=== PATIENT | female | born 1930 | race African-American/Black ===

== ENCOUNTER 2017-05-31 12:38 | Inpatient (IN) | payer MEDICARE, MEDICAID ==
[2017-05-31] VITALS (23 sets, daily range): BP systolic 76–116; BP diastolic 41–62
[~2017-05-31] VITALS: Ht 152.4 cm; Wt 74.8 kg
[2017-05-31] MEDS ORDERED: TORSEMIDE20 MG ORAL (12:44)
[2017-05-31] MEDS ORDERED: SOTALOL80 M1 ORAL (12:44)
[2017-05-31] MEDS ORDERED: VERAPAMIL ER240 MG ORAL (12:44)
[2017-05-31] MEDS ORDERED: COUMADIN5 MG ORAL (12:54)
[2017-05-31] MEDS ORDERED: SPIRONOLACTONE ORAL (12:54)
[2017-05-31] MEDS ORDERED: TYLENOL EXTRA500 MG ORAL (12:54)
[2017-05-31] MEDS ORDERED: POTASSIUM CHLO10 MEQ ORAL (12:54)
[2017-05-31] MEDS ORDERED: ATORVASTATIN CA40 MG ORAL (12:54)
--- NOTE | 2017-05-31 12:55 | Emergency Room Report ---
History of Present Illness General Chief Complaint: Gastrointestinal Bleed Source: Patient, Medical Record, EMS Present Illness HPI 86-year-old female history of hypertension, pacemaker ? Atrial fibrillation, on Coumadin, also takes aspirin, presenting with one day of GI bleed Patient reports bright red blood per rectum, multiple episodes this morning, feeling very faint but no actual syncopal episode. Patient states that this has never occurred in the past. Her last colonoscopy was 4 years ago and she was told it was normal. Denies any fever chills chest pain shortness of breath nausea vomiting or abdominal pain EMS states that on arrival the patient's systolic was 100. Received 400 mL of fluid. EMS also noted that in route patient became bradycardic at 35, was always alert and oriented, received oxygen which improved heart rate. Patient was never hypoxic Allergies: Coded Allergies: No Known Allergies (Unverified , 05/31/17) Patient History Past Medical History: see triage record Past Surgical History: none Pertinent Family History: none Reviewed Nursing Documentation: PMH: Agreed, PSxH: Agreed Nursing Documentation-PMH Past Medical History: No History, Except For Hx Pacemaker: Yes Review of Systems All Other Systems: negative except mentioned in HPI Physical Exam Vital Signs Date Time Temp Pulse Resp B/P (MAP) Pulse Ox O2 Delivery O2 Flow Rate FiO2 05/31/17 12:31 95.5 81 14 102/59 92 Room Air Sp02 EP Interpretation: reviewed, normal General Appearance: alert, GCS 15, non-toxic, other - Elderly female, appears fatigued, however awake alert and conversing appropriately Head: normocephalic, atraumatic Eyes: bilateral eye normal inspection, bilateral eye PERRL, bilateral eye EOMI ENT: normal ENT inspection, normal pharynx, normal voice, moist mucus membranes Neck: normal inspection, full range of motion, supple Respiratory: normal inspection, lungs clear, normal breath sounds, no respiratory distress, no retraction, no wheezing, speaking full sentences, chest symmetrical Cardiovascular #1: normal inspection, regular rate, rhythm, no edema, normal capillary refill Cardiovascular #2: 2+ radial (R), 2+ radial (L) Gastrointestinal: normal inspection, non tender, soft, non-distended, no guarding Rectal: other - BRBPR in rectal vault however no active bleeding Musculoskeletal: normal inspection, back normal, normal range of motion, non- tender Neurologic: normal inspection, alert, oriented x3, responsive, motor strength/ tone normal, sensory intact, speech normal Psychiatric: normal inspection, judgement/insight normal, memory normal Skin: no rash, warm/dry, well hydrated, normal turgor, other - Conjunctival pallor Procedures Critical Care Time Critical Care Time 40 minutes of CC time 86-year-old female with GI bleed, on Coumadin VS: Hypotensive Airway patent. Not hypoxic. PLAN: IV access, labs, coags, transfuse blood Anticipate admission to ICU CC time also includes review of labs, review of EMR, discussion with family , d/ w hospitalist and consultants CC could include dosing of pressors, additional Abx CC time does not include procedures Medical Decision Making Diagnostic Impression: Primary Impression: Gastrointestinal hemorrhage Additional Impressions: Anemia Supratherapeutic INR ER Course 86-year-old female on Coumadin presenting with bright red blood per rectum Currently patient is hemodynamically stable DDX: Lower GI bleed Hemorrhoids versus diverticulosis versus AV malformation versus mass versus diverticulitis Plan: Obtain labs, ua, EKG, CXR, type and screen, assess for transfusion/FFP ER course: Patient has remained awake and alert during ED stay Not in pain No rose bloody stools BP noted to be around 85-100 systolic with MAPs around 55-60. Currently 95/50. Hgb noted to be ~9, unknown baseline. patient with minimal active bleeding in ED however symptomatic/dizzy feeling faint, will xfuse 2 units here in the ED Risks and benefits of blood xfusion d/w patient and daughter, they agree to xfusion supratherapeutic INR at 6 Vit K and FFP given After 1 unit pRBC patients BP 80/60 to 108/58 2nd unit started in ED Disposition: Patient is to be admitted to ICU D/W hospitalist Dr Coronado who has accepted pt for admission Dr Irizarry from GI consulted and is aware of case Please note that this Emergency Department Report was dictated using [employer] operator technology software, occasionally this can lead to erroneous entry secondary to interpretation by the dictation equipment. Chest X-ray CXR: Ordered: Yes 1 view Indication: Shortness of breath EP interpretation: Yes Interpretation: No consolidation, no effusion, no PTX, no acute cardiopulmonary disease, pacemaker noted in left chest Impression: No acute disease Electronically signed by Rochelle Acevedo MD Laboratory Tests Test 05/31/17 12:45 White Blood Count 6.5 K/UL (4.8-10.8) Red Blood Count 2.92 M/UL (4.20-5.40) L Hemoglobin 9.6 G/DL (12.0-16.0) L Hematocrit 29.3 % (37.0-47.0) L Mean Corpuscular Volume 100 FL (80-99) H Mean Corpuscular Hemoglobin 32.7 PG (27.0-31.0) H Mean Corpuscular Hemoglobin Concent 32.6 G/DL (32.0-36.0) Red Cell Distribution Width 13.6 % (11.6-14.8) Platelet Count 130 K/UL (150-450) L Mean Platelet Volume 10.1 FL (6.5-10.1) Neutrophils (%) (Auto) 76.2 % (45.0-75.0) H Lymphocytes (%) (Auto) 18.4 % (20.0-45.0) L Monocytes (%) (Auto) 3.6 % (1.0-10.0) Eosinophils (%) (Auto) 1.1 % (0.0-3.0) Basophils (%) (Auto) 0.8 % (0.0-2.0) Prothrombin Time 64.0 SEC (9.30-11.50) H Prothrombin Time INR 6.0 (0.9-1.1) *H PTT 39 SEC (23-33) H Sodium Level 137 MMOL/L (136-145) Potassium Level 4.2 MMOL/L (3.5-5.1) Chloride Level 105 MMOL/L (98-107) Carbon Dioxide Level 24 MMOL/L (21-32) Anion Gap 8 (5-15) Blood Urea Nitrogen 61 mg/dL (7-18) H Creatinine 2.3 MG/DL (0.55-1.30) H Estimate Glomerular Filtration Rate mL/min (>60) Glucose Level 160 MG/DL (74-106) H Calcium Level 8.4 MG/DL (8.5-10.1) L Total Bilirubin 0.5 MG/DL (0.2-1.0) Aspartate Amino Transferase (AST) 18 U/L (15-37) Alanine Aminotransferase (ALT) 18 U/L (12-78) Alkaline Phosphatase 78 U/L (46-116) Creatine Kinase MB 0.9 NG/ML (0.0-3.6) Troponin I Pending Total Protein 5.6 G/DL (6.4-8.2) L Albumin 2.7 G/DL (3.4-5.0) L Globulin 2.9 g/dL Albumin/Globulin Ratio 0.9 (1.0-2.7) L Lipase 612 U/L (73-393) H EKG Diagnostic Results Rhythm: NSR ST Segments: no acute changes ASA given to the pt in ED: No Rhythm Strip Diag. Results EP Interpretation: yes Rate: 63 Rhythm: NSR, no PVC's, no ectopy Last Vital Signs Date Time Temp Pulse Resp B/P (MAP) Pulse Ox O2 Delivery O2 Flow Rate FiO2 05/31/17 12:31 95.5 81 14 102/59 92 Room Air Disposition: ADMITTED INPATIENT Condition: Serious RetinoRochelle M.D. May 31, 2017 12:55
[2017-05-31] MEDS ORDERED: ENALAPRIL MALEA20 MG ORAL (13:18)
[2017-05-31 13:19] LABS: BASOPHILS % (AUTO) 0.8 % (0.0-2.0); EOSINOPHILS % (AUTO) 1.1 % (0.0-3.0); LYMPHOCYTES % (AUTO) 18.4 % (20.0-45.0); MEAN CORPUSCULAR HEMOGLOBIN 32.7 PG (27.0-31.0); MEAN CORPUSCULAR HGB CONC 32.6 G/DL (32.0-36.0); MEAN CORPUSCULAR VOLUME 100 FL (80-99); MEAN PLATELET VOLUME 10.1 FL (6.5-10.1); MONOCYTES % (AUTO) 3.6 % (1.0-10.0); NEUTROPHILS % (AUTO) 76.2 % (45.0-75.0); PLATELET COUNT 130 K/UL (150-450); RED BLOOD COUNT 2.92 M/UL (4.20-5.40); RED CELL DISTRIBUTION WIDTH 13.6 % (11.6-14.8); WHITE BLOOD COUNT 6.5 K/UL (4.8-10.8)
[2017-05-31 13:39] LABS: ALANINE AMINOTRANSFERASE 18 U/L (12-78); ALBUMIN/GLOBULIN RATIO 0.9 (1.0-2.7); ANION GAP 8 (5-15); ASPARTATE AMINO TRANSFERASE 18 U/L (15-37); CALCIUM 8.4 MG/DL (8.5-10.1); CARBON DIOXIDE 24 MMOL/L (21-32); CHLORIDE 105 MMOL/L (98-107); CKMB 0.9 NG/ML (0.0-3.6); CREATININE 2.3 MG/DL (0.55-1.30); LIPASE 612 U/L (73-393); POTASSIUM 4.2 MMOL/L (3.5-5.1); SODIUM 137 MMOL/L (136-145); TOTAL PROTEIN 5.6 G/DL (6.4-8.2)
[2017-05-31] MEDS ORDERED: Phytonadione 10 mg/mL 1ml amp ONE (13:51)
[2017-05-31] MEDS ORDERED: Vitamin K 10mg in D5W 55ml IVPB ONE (14:00)
--- NOTE | 2017-05-31 16:12 | Consultation ---
Consult Note Consult Note asked to eval for renal failure- 86-year-old female history of hypertension, pacemaker ? Atrial fibrillation, on Coumadin, also takes aspirin, presenting with one day of GI bleed Patient reports bright red blood per rectum, multiple episodes this morning, feeling very faint but no actual syncopal episode. Patient states that this has never occurred in the past. Her last colonoscopy was 4 years ago and she was told it was normal. Denies any fever chills chest pain shortness of breath nausea vomiting or abdominal pain EMS states that on arrival the patient's systolic was 100. Received 400 mL of fluid. EMS also noted that in route patient became bradycardic at 35, was always alert and oriented, received oxygen which improved heart rate. 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 Pre renal ( GI Bleed) on top of Renal GI Bleed- Anemia CHF high Lipase Plan: [facility]- GI eval Transfusion- Echo [facility] kidney ALOK VILLALTA May 31, 2017 16:12
--- NOTE | 2017-05-31 16:26 | Diagnostic Imaging Report ---
Indication: Chest pain Technique: One view of the chest Comparison: none Findings: There is a left chest bifocal pacemaker. The lungs and pleural spaces are clear. Inspiration is suboptimal, however. There is a retrocardiac hiatal hernia. There are degenerative changes of both shoulders Impression: No acute process Hiatal hernia Pacemaker
--- NOTE | 2017-05-31 16:47 | GI Initial Consult Note ---
Yousif,Juliana Wuoi N.P. 05/31/17 1647: History of Present Illness General Date patient seen: May 31, 2017 Time patient seen: 16:38 Reason for Hospitalization: Gastrointestinal Bleed Referring physician: PRIYA CARTY Present Illness HPI 86-year-old female history of hypertension, pacemaker ? Atrial fibrillation, on Coumadin, also takes aspirin, presenting with one day of GI bleed Patient reports bright red blood per rectum, multiple episodes this morning, feeling very faint but no actual syncopal episode. Patient states that this has never occurred in the past. Her last colonoscopy was 4 years ago and she was told it was normal. Denies any fever chills chest pain shortness of breath nausea vomiting or abdominal pain EMS states that on arrival the patient's systolic was 100. Received 400 mL of fluid. EMS also noted that in route patient became bradycardic at 35, was always alert and oriented, received oxygen which improved heart rate. Patient was never hypoxic. GI consulted for LGIB. HPI as noted above. Pt seen in ED, awake but very weak A&Ox4 NAD with no noted active rectal bleed at this time. Patient was admitted with symptomatic anemia, Hgb 9.8 s/p 2 units of blood and hypotension now stable. Notable labs with elevated troponin, elevated INR (coumadin dc'd), and elevated lipase. Patient is pending transfer to ICU. Home Meds Reported Medications Enalapril Maleate* (ENALAPRIL MALEATE*) 20 Mg Tablet, 20 MG ORAL DAILY, TAB 05/31/17 Warfarin Sod* (COUMADIN*) 5 Mg Tablet, 5 MG ORAL DAILY, TAB 05/31/17 Atorvastatin Calcium* (ATORVASTATIN CALCIUM*) 40 Mg Tablet, 40 MG ORAL BEDTIME, TAB 05/31/17 [Spironolactone] No Conflict Check, 25 MG ORAL DAILY 05/31/17 Acetaminophen* (TYLENOL EXTRA STRENGTH*) 500 Mg Tablet, 650 MG ORAL Q8H Y for Prn Headache/Temp > 101, #30 TAB 0 Refills 05/31/17 Torsemide* (DEMADEX*) 20 Mg Tablet, 60 MG ORAL DAILY, TAB 0 Refills 05/31/17 Verapamil Hcl* (CALAN SR*) 240 Mg Tablet.er, 360 MG ORAL DAILY, #30 CAP 0 Refills 05/31/17 Sotalol Hcl (SOTALOL*) 80 Mg Tablet, 80 MG ORAL BID, #30 TAB 0 Refills 05/31/17 Med list reviewed/reconciled: Yes Allergies: Coded Allergies: No Known Allergies (Unverified , 05/31/17) Patient History History Provided By: Patient, Medical Record PMH Narrative Past Medical History: see triage record Past Surgical History: none Pertinent Family History: none Reviewed Nursing Documentation: PMH: Agreed, PSxH: Agreed Nursing Documentation-PMH Past Medical History: No History, Except For Hx Pacemaker: Yes Review of Systems All Other Systems: negative except mentioned in HPI Physical Exam Vital Signs Date Time Temp Pulse Resp B/P (MAP) Pulse Ox O2 Delivery O2 Flow Rate FiO2 05/31/17 12:31 95.5 81 14 102/59 92 Room Air 05/31/17 12:40 2.0 Sp02 EP Interpretation: reviewed Labs Laboratory Tests Test 05/31/17 12:45 White Blood Count 6.5 K/UL (4.8-10.8) Red Blood Count 2.92 M/UL (4.20-5.40) L Hemoglobin 9.6 G/DL (12.0-16.0) L Hematocrit 29.3 % (37.0-47.0) L Mean Corpuscular Volume 100 FL (80-99) H Mean Corpuscular Hemoglobin 32.7 PG (27.0-31.0) H Mean Corpuscular Hemoglobin Concent 32.6 G/DL (32.0-36.0) Red Cell Distribution Width 13.6 % (11.6-14.8) Platelet Count 130 K/UL (150-450) L Mean Platelet Volume 10.1 FL (6.5-10.1) Neutrophils (%) (Auto) 76.2 % (45.0-75.0) H Lymphocytes (%) (Auto) 18.4 % (20.0-45.0) L Monocytes (%) (Auto) 3.6 % (1.0-10.0) Eosinophils (%) (Auto) 1.1 % (0.0-3.0) Basophils (%) (Auto) 0.8 % (0.0-2.0) Prothrombin Time 64.0 SEC (9.30-11.50) H Prothromb Time International Ratio 6.0 (0.9-1.1) *H Activated Partial Thromboplast Time 39 SEC (23-33) H Sodium Level 137 MMOL/L (136-145) Potassium Level 4.2 MMOL/L (3.5-5.1) Chloride Level 105 MMOL/L (98-107) Carbon Dioxide Level 24 MMOL/L (21-32) Anion Gap 8 (5-15) Blood Urea Nitrogen 61 mg/dL (7-18) H Creatinine 2.3 MG/DL (0.55-1.30) H Estimat Glomerular Filtration Rate mL/min (>60) Glucose Level 160 MG/DL (74-106) H Calcium Level 8.4 MG/DL (8.5-10.1) L Total Bilirubin 0.5 MG/DL (0.2-1.0) Aspartate Amino Transf (AST/SGOT) 18 U/L (15-37) Alanine Aminotransferase (ALT/SGPT) 18 U/L (12-78) Alkaline Phosphatase 78 U/L (46-116) Creatine Kinase MB 0.9 NG/ML (0.0-3.6) Troponin I 0.093 ng/mL (0.000-0.056) Total Protein 5.6 G/DL (6.4-8.2) L Albumin 2.7 G/DL (3.4-5.0) L Globulin 2.9 g/dL Albumin/Globulin Ratio 0.9 (1.0-2.7) L Lipase 612 U/L (73-393) H General Appearance: no apparent distress, thin, other - generalized weakness Head: normocephalic EENT: normal ENT inspection Neck: supple Respiratory: normal breath sounds Cardiovascular: normal rate Gastrointestinal: soft Rectal: deferred Neurologic: normal inspection, alert, oriented x3, responsive Psychiatric: normal inspection, judgement/insight normal, memory normal Skin: normal inspection, normal color, no rash, warm/dry Lymphatic: normal inspection, no adenopathy Current Medications Current Medications Medications (Trade) Dose Ordered Sig/Marck Route PRN Reason Start Time Stop Time Status Last Admin Dose Admin Sodium Chloride 1,000 ml @ 50 mls/hr Q20H IV 05/31/17 16:15 06/30/17 16:14 UNV GI: Plan Problems: (1) GI bleed (2) Anemia (3) Supratherapeutic INR (4) Gastrointestinal hemorrhage (5) Pancreatitis Plan pending transfer to ICU no noted active rectal bleed at this time elevated INR >> 6.0 elevated troponin >> 0.09 elevated lipase >> 600 + pacemaker present EGD/colonoscopy when patient is stable >> will require cardiac clearance NPO + IVFs + electrolyte replacement anemia work up monitor H&H, transfusions prn coagulopathy correction >> Vit K PPI BID repeat lipase fu labs Discussed with Dr. Langley. Thank you for this patient referral, we will follow. WAYNE LANGLEY 06/03/17 0914: History of Present Illness General Reason for Hospitalization: Gastrointestinal Bleed Present Illness Home Meds Reported Medications Enalapril Maleate* (ENALAPRIL MALEATE*) 20 Mg Tablet, 20 MG ORAL DAILY, TAB 05/31/17 Warfarin Sod* (COUMADIN*) 5 Mg Tablet, 5 MG ORAL DAILY, TAB 05/31/17 Atorvastatin Calcium* (ATORVASTATIN CALCIUM*) 40 Mg Tablet, 40 MG ORAL BEDTIME, TAB 05/31/17 [Spironolactone] No Conflict Check, 25 MG ORAL DAILY 05/31/17 Acetaminophen* (TYLENOL EXTRA STRENGTH*) 500 Mg Tablet, 650 MG ORAL Q8H Y for Prn Headache/Temp > 101, #30 TAB 0 Refills 05/31/17 Torsemide* (DEMADEX*) 20 Mg Tablet, 60 MG ORAL DAILY, TAB 0 Refills 05/31/17 Verapamil Hcl* (CALAN SR*) 240 Mg Tablet.er, 360 MG ORAL DAILY, #30 CAP 0 Refills 05/31/17 Sotalol Hcl (SOTALOL*) 80 Mg Tablet, 80 MG ORAL BID, #30 TAB 0 Refills 05/31/17 Allergies: Coded Allergies: No Known Allergies (Unverified , 05/31/17) GI: Plan Plan The patient was seen and examined at bedside and all new and available data was reviewed in the patients chart. I agree with the above findings, impression and plan. (Patient seen earlier today. Signature stamp does not reflect patient encounter time.). - MD Nica Honeycutt,[facility] N.P. May 31, 2017 16:47 WAYNE LANGLEY Jun 03, 2017 09:14
[2017-05-31] MEDS ORDERED: Levophed 4mg/4mL Inj IV ONE (18:55)
[2017-05-31] MEDS: Octreotide Acetate 500 MCG in Sodium Chloride 500ML 499 ML IV SCH (20:17)
[2017-05-31] MEDS: Pantoprazole 80 MG in NS 250 ML IV SCH (20:18)
[2017-05-31] MEDS ORDERED: Pantoprazole Inj IVP SCH (21:00)
[2017-05-31 21:35] LABS: EOSINOPHILS % (MANUAL) 1 % (0-3); LYMPHOCYTES % (MANUAL) 21 % (20-45); NEUTROPHILS % (MANUAL) 73 % (45-75); TOTAL CELLS COUNTED 100
[2017-05-31 21:36] LABS: BAND NEUTROPHILS % (MANUAL) 0 % (0-8); BASOPHILS % (MANUAL) 0 % (0-2); PLATELET ESTIMATE DECREASED
[2017-05-31 21:37] LABS: MACROCYTES 1+; PLATELET MORPHOLOGY NORMAL
[2017-05-31 21:38] LABS: PATH BLOOD SMEAR/OMC SENT TO PATHOLOGIST
[2017-06-01] VITALS (24 sets, daily range): BP systolic 88–116; BP diastolic 36–71
[2017-06-01] MEDS: Octreotide Acetate 500 MCG in Sodium Chloride 500ML 499 ML IV SCH (06:02)
[2017-06-01] MEDS: Pantoprazole 80 MG in NS 250 ML IV SCH (06:03)
[2017-06-01 06:26] LABS: MEAN CORPUSCULAR HEMOGLOBIN 33.1 PG (27.0-31.0); MEAN CORPUSCULAR HGB CONC 33.9 G/DL (32.0-36.0); MEAN CORPUSCULAR VOLUME 98 FL (80-99); MEAN PLATELET VOLUME 10.7 FL (6.5-10.1); PLATELET COUNT 106 K/UL (150-450); RED BLOOD COUNT 3.18 M/UL (4.20-5.40); WHITE BLOOD COUNT 18.3 K/UL (4.8-10.8)
--- NOTE | 2017-06-01 06:46 | Consultation ---
DATE OF CONSULTATION: 05/31/2017 CONSULTING PHYSICIAN: Kenny Castle M.D. REQUESTING PHYSICIAN: Ty Fisher M.D. REASON FOR CONSULTATION: Management of anemia and GI bleed. IDENTIFICATION DATA: Dear Dr. Ty Fisher: The patient is a pleasant 86-year-old female with a past medical history significant for hypertension, atrial fibrillation, who was on Coumadin in the past and aspirin, at this time presents with one day of GI bleed. According to the report in the morning. No syncopal episodes noted. It has never happened in the past. Last colonoscopy was approximately four years ago. Noted to be dehydrated, seen by Nephrology as well as GI team. Hematology and Oncology service was consulted for further evaluation and treatment. PAST MEDICAL HISTORY: Atrial fibrillation hypertension. PAST SURGICAL HISTORY: None noted. ALLERGIES: No known drug allergies. FAMILY HISTORY: Noncontributory. REVIEW OF SYSTEMS: CONSTITUTIONAL: No fever, chills, or night sweats. SKIN: No rashes, bumps, or itching. HEENT: No headache, hearing or vision changes. BREASTS: No lumps, pain, or discharge. PULMONARY: No cough, sputum, or shortness of breath. GASTROINTESTINAL: No nausea, vomiting, or diarrhea. GENITOURINARY: No dysuria, frequency, or urgency. MUSCULOSKELETAL: No joint swelling, muscle pain, or trauma. PHYSICAL EXAMINATION: VITAL SIGNS: Reviewed. GENERAL: No acute distress. PULMONARY: Decreased breath sounds. CARDIOVASCULAR: Regular rate. No S3 or S4. ABDOMEN: Soft, nontender, and nondistended. EXTREMITIES: There is 1+ edema. LABORATORY DATA: WBC 6.5, hemoglobin 9.6, hematocrit 29, and platelet count 130,000. INR of 1.6. BUN 61 and creatinine 2.3. ASSESSMENT AND RECOMMENDATIONS: 1. Anemia secondary to gastrointestinal bleed. Continue to closely monitor. Consider to obtain anemia workup. Hemoglobin currently 9.6 and require iron. Workup has been ordered. 2. Macrocytosis potentially secondary to liver disease. Continue to monitor. 3. Supratherapeutic INR . Coumadin currently on hold. Administer vitamin K. 4. Pancreatitis. evaluation as per Cardiology Service. 5. The patient is potentially to get an EGD and colonoscopy. I appreciate the consultation. Kenny Castle M.D. DR: BATSHEVA JOB#: [id number] CC:
[2017-06-01 07:33] LABS: IRON 54 ug/dL (50-175); TOTAL IRON BINDING CAPACITY 218 ug/dL (250-450)
[2017-06-01 07:54] LABS: ALANINE AMINOTRANSFERASE 16 U/L (12-78); ANION GAP 9 (5-15); ASPARTATE AMINO TRANSFERASE 17 U/L (15-37); CALCIUM 8.7 MG/DL (8.5-10.1); CARBON DIOXIDE 22 MMOL/L (21-32); CHLORIDE 106 MMOL/L (98-107); CHOLESTEROL 84 MG/DL (< 200); CHOLESTEROL/HDL RATIO 2.8 (3.3-4.4); CREATININE 2.6 MG/DL (0.55-1.30); CRP QUANT 3.2 mg/dL (0.00-0.90); FERRITIN 82 NG/ML (8-388); PHOSPHORUS 5.4 MG/DL (2.5-4.9); POTASSIUM 5.1 MMOL/L (3.5-5.1); SODIUM 137 MMOL/L (136-145); THYROID STIMULATING HORMONE 0.371 uiU/mL (0.360-3.740); TOTAL PROTEIN 5.7 G/DL (6.4-8.2); URIC ACID 10.2 MG/DL (2.6-7.2)
--- NOTE | 2017-06-01 08:12 | Cardiology Progress Note ---
Assessment/Plan Assessment/Plan The patient is seen and examined, full consult note will be dictated. Objective Last 24 Hour Vital Signs Date Time Temp Pulse Resp B/P (MAP) Pulse Ox O2 Delivery O2 Flow Rate FiO2 06/01/17 07:00 68 14 97/40 100 Nasal Cannula 2.0 06/01/17 06:00 67 14 109/44 100 Nasal Cannula 2.0 06/01/17 05:00 69 14 110/59 100 Nasal Cannula 2.0 06/01/17 04:00 61 06/01/17 04:00 97.4 69 14 88/39 100 Nasal Cannula 2.0 06/01/17 03:00 72 14 102/44 100 Nasal Cannula 2.0 06/01/17 02:00 68 18 100/40 100 Nasal Cannula 2.0 06/01/17 01:00 68 19 116/49 100 Nasal Cannula 2.0 06/01/17 00:00 97.6 68 16 91/46 100 Nasal Cannula 2.0 06/01/17 00:00 60 05/31/17 23:00 62 17 86/41 100 Nasal Cannula 2.0 05/31/17 22:00 61 17 94/41 100 Nasal Cannula 2.0 05/31/17 21:00 60 16 102/49 100 Nasal Cannula 2.0 05/31/17 20:30 60 14 110/52 100 Nasal Cannula 2.0 05/31/17 20:00 97.8 60 14 97/47 100 Nasal Cannula 2.0 05/31/17 19:30 95 Nasal Cannula 2.0 28 05/31/17 19:30 Nasal Cannula 2.0 28 05/31/17 19:00 62 15 116/54 100 Nasal Cannula 2.0 05/31/17 18:58 66/42 05/31/17 18:00 60 05/31/17 18:00 60 15 99/42 100 Nasal Cannula 2.0 05/31/17 17:38 97.5 61 13 107/52 100 Nasal Cannula 2.0 05/31/17 16:58 60 13 105/52 100 Nasal Cannula 2.0 05/31/17 16:10 96.8 60 15 99/51 100 Nasal Cannula 2.0 05/31/17 16:05 96.8 60 14 100/56 100 Nasal Cannula 2.0 05/31/17 16:00 96.8 60 12 103/57 100 Nasal Cannula 2.0 05/31/17 15:55 96.9 60 14 05/31/17 15:55 96.9 60 14 104/54 100 Nasal Cannula 2.0 05/31/17 15:40 96.7 60 14 99/55 100 Nasal Cannula 2.0 05/31/17 15:00 96.6 60 13 99/53 100 Nasal Cannula 2.0 05/31/17 14:55 96.5 60 13 107/56 100 Nasal Cannula 2.0 05/31/17 14:50 96.5 60 13 106/57 100 Nasal Cannula 2.0 05/31/17 14:45 96.6 60 13 05/31/17 14:45 96.6 60 13 109/58 100 Nasal Cannula 2.0 05/31/17 14:30 96.2 60 12 107/54 100 Nasal Cannula 2.0 05/31/17 14:25 95.8 60 15 95/53 100 Nasal Cannula 2.0 05/31/17 14:20 95.5 60 13 76/42 100 Nasal Cannula 2.0 05/31/17 14:15 95.5 60 16 05/31/17 14:15 95.5 60 16 84/46 100 Nasal Cannula 2.0 05/31/17 13:00 61 18 92/62 99 Nasal Cannula 2.0 05/31/17 12:40 95.7 61 15 96/54 98 Nasal Cannula 2.0 05/31/17 12:40 61 15 Nasal Cannula 2.0 05/31/17 12:31 95.5 81 14 102/59 92 Room Air Laboratory Tests Test 05/31/17 12:45 05/31/17 18:43 06/01/17 05:20 White Blood Count 6.5 K/UL (4.8-10.8) 18.3 K/UL (4.8-10.8) #H Red Blood Count 2.92 M/UL (4.20-5.40) L 3.18 M/UL (4.20-5.40) L Hemoglobin 9.6 G/DL (12.0-16.0) L 10.5 G/DL (12.0-16.0) L Hematocrit 29.3 % (37.0-47.0) L 31.1 % (37.0-47.0) L Mean Corpuscular Volume 100 FL (80-99) H 98 FL (80-99) Mean Corpuscular Hemoglobin 32.7 PG (27.0-31.0) H 33.1 PG (27.0-31.0) H Mean Corpuscular Hemoglobin Concent 32.6 G/DL (32.0-36.0) 33.9 G/DL (32.0-36.0) Red Cell Distribution Width 13.6 % (11.6-14.8) 14.0 % (11.6-14.8) Platelet Count 130 K/UL (150-450) L 106 K/UL (150-450) L Mean Platelet Volume 10.1 FL (6.5-10.1) 10.7 FL (6.5-10.1) H Neutrophils (%) (Auto) 76.2 % (45.0-75.0) H % (45.0-75.0) Lymphocytes (%) (Auto) 18.4 % (20.0-45.0) L % (20.0-45.0) Monocytes (%) (Auto) 3.6 % (1.0-10.0) % (1.0-10.0) Eosinophils (%) (Auto) 1.1 % (0.0-3.0) % (0.0-3.0) Basophils (%) (Auto) 0.8 % (0.0-2.0) % (0.0-2.0) Differential Total Cells Counted 100 Neutrophils % (Manual) 73 % (45-75) Pending Lymphocytes % (Manual) 21 % (20-45) Pending Monocytes % (Manual) 5 % (1-10) Eosinophils % (Manual) 1 % (0-3) Basophils % (Manual) 0 % (0-2) Band Neutrophils 0 % (0-8) Platelet Estimate Decreased L Pending Platelet Morphology Normal Pending Macrocytosis 1+ Prothrombin Time 64.0 SEC (9.30-11.50) H Prothromb Time International Ratio 6.0 (0.9-1.1) *H Activated Partial Thromboplast Time 39 SEC (23-33) H Sodium Level 137 MMOL/L (136-145) 137 MMOL/L (136-145) Potassium Level 4.2 MMOL/L (3.5-5.1) 5.1 MMOL/L (3.5-5.1) Chloride Level 105 MMOL/L (98-107) 106 MMOL/L (98-107) Carbon Dioxide Level 24 MMOL/L (21-32) 22 MMOL/L (21-32) Anion Gap 8 (5-15) 9 (5-15) Blood Urea Nitrogen 61 mg/dL (7-18) H 72 mg/dL (7-18) H Creatinine 2.3 MG/DL (0.55-1.30) H 2.6 MG/DL (0.55-1.30) H Estimat Glomerular Filtration Rate mL/min (>60) mL/min (>60) Glucose Level 160 MG/DL (74-106) H 129 MG/DL (74-106) H Calcium Level 8.4 MG/DL (8.5-10.1) L 8.7 MG/DL (8.5-10.1) Total Bilirubin 0.5 MG/DL (0.2-1.0) 1.4 MG/DL (0.2-1.0) H Aspartate Amino Transf (AST/SGOT) 18 U/L (15-37) 17 U/L (15-37) Alanine Aminotransferase (ALT/SGPT) 18 U/L (12-78) 16 U/L (12-78) Alkaline Phosphatase 78 U/L (46-116) 73 U/L (46-116) Creatine Kinase MB 0.9 NG/ML (0.0-3.6) Troponin I 0.093 ng/mL (0.000-0.056) Total Protein 5.6 G/DL (6.4-8.2) L 5.7 G/DL (6.4-8.2) L Albumin 2.7 G/DL (3.4-5.0) L 2.8 G/DL (3.4-5.0) L Globulin 2.9 g/dL 2.9 g/dL Albumin/Globulin Ratio 0.9 (1.0-2.7) L 1.0 (1.0-2.7) Lipase 612 U/L (73-393) H 407 U/L (73-393) H Reticulocyte Count 0.4 % (0.0-2.0) Haptoglobin Pending Fibrinogen 313 mg/dL (200-400) Soluble Transferrin Receptor Pending Methylmalonic Acid Pending Hemoglobin A1c Pending Uric Acid 10.2 MG/DL (2.6-7.2) H Phosphorus Level 5.4 MG/DL (2.5-4.9) H Magnesium Level 2.0 MG/DL (1.8-2.4) Iron Level 54 ug/dL (50-175) Total Iron Binding Capacity 218 ug/dL (250-450) L Percent Iron Saturation 25 % (15-50) Unsaturated Iron Binding 164 ug/dL (112-346) Ferritin 82 NG/ML (8-388) Direct Bilirubin Pending Gamma Glutamyl Transpeptidase Pending Total Creatine Kinase 39 U/L (26-308) C-Reactive Protein, Quantitative 3.2 mg/dL (0.00-0.90) H Pro-B-Type Natriuretic Peptide 2318 (0-125) H Triglycerides Level 76 MG/DL (0-200) Cholesterol Level 84 MG/DL (< 200) LDL Cholesterol 38 mg/dL (<100) HDL Cholesterol 30 MG/DL (40-60) L Cholesterol/HDL Ratio 2.8 (3.3-4.4) L Vitamin B12 Level 96 PG/ML (193-986) L Folate Pending Thyroid Stimulating Hormone (TSH) 0.371 uiU/mL (0.360-3.740) ELEONORA SILVA Jun 01, 2017 08:11
[2017-06-01 09:04] LABS: BILIRUBIN,DIRECT 0.2 MG/DL (0.0-0.3)
[2017-06-01 09:49] LABS: BAND NEUTROPHILS % (MANUAL) 0 % (0-8); BASOPHILS % (MANUAL) 0 % (0-2); EOSINOPHILS % (MANUAL) 0 % (0-3); LYMPHOCYTES % (MANUAL) 12 % (20-45); NEUTROPHILS % (MANUAL) 85 % (45-75); PLATELET ESTIMATE DECREASED; PLATELET MORPHOLOGY NORMAL; TOTAL CELLS COUNTED 100
[2017-06-01 09:50] LABS: HYPOCHROMASIA 1+
[2017-06-01 10:18] LABS: HEMOGLOBIN A1C 6.9 % (4.5-6.5)
--- NOTE | 2017-06-01 10:44 | Diagnostic Imaging Report ---
Indication: Abnormal renal function tests Technique: Grayscale and duplex images of the kidneys, retroperitoneum, and bladder were obtained. Comparison:None Findings: Right kidney measures 8.3 cm in length. Left kidney measures 7.3 cm in length. Both kidneys demonstrate normal echogenicity. No hydronephrosis. No focal abnormality. Normal inferior vena cava. Bladder is normal. Impression: Bilateral small kidneys Otherwise unremarkable. Negative for hydronephrosis.
[2017-06-01 13:18] LABS: INR 1.1 (0.9-1.1); PROTHROMBIN TIME 11.1 SEC (9.30-11.50)
--- NOTE | 2017-06-01 14:24 | General Progress Note ---
Assessment/Plan Status: other - Cr rising Status Narrative no major yet- 450 cc retention on bladder scan Assessment/Plan Acute renal failure- ? Pre renal ( GI Bleed) on top of Renal GI Bleed- Anemia CHF high Lipase Plan: Major- by urologist GI eval Transfusion- Echo- pending LORI kidney- small kidneys Subjective ROS Limited/Unobtainable: No Constitutional: Reports: malaise, weakness Allergies: Coded Allergies: No Known Allergies (Unverified , 05/31/17) Objective Last 24 Hour Vital Signs Date Time Temp Pulse Resp B/P (MAP) Pulse Ox O2 Delivery O2 Flow Rate FiO2 06/01/17 14:00 73 18 111/49 100 Nasal Cannula 2.0 06/01/17 13:00 70 18 104/39 100 Nasal Cannula 2.0 06/01/17 12:00 67 06/01/17 12:00 98.1 69 16 106/41 100 Nasal Cannula 2.0 06/01/17 11:00 70 16 104/39 100 Nasal Cannula 2.0 06/01/17 10:00 68 15 102/40 100 Nasal Cannula 2.0 06/01/17 09:00 68 15 97/40 100 Nasal Cannula 2.0 06/01/17 08:00 66 06/01/17 08:00 97.6 67 18 102/44 100 Nasal Cannula 2.0 06/01/17 07:00 68 14 97/40 100 Nasal Cannula 2.0 06/01/17 06:00 67 14 109/44 100 Nasal Cannula 2.0 06/01/17 05:00 69 14 110/59 100 Nasal Cannula 2.0 06/01/17 04:00 61 06/01/17 04:00 97.4 69 14 88/39 100 Nasal Cannula 2.0 06/01/17 03:00 72 14 102/44 100 Nasal Cannula 2.0 06/01/17 02:00 68 18 100/40 100 Nasal Cannula 2.0 06/01/17 01:00 68 19 116/49 100 Nasal Cannula 2.0 06/01/17 00:00 97.6 68 16 91/46 100 Nasal Cannula 2.0 06/01/17 00:00 60 05/31/17 23:00 62 17 86/41 100 Nasal Cannula 2.0 05/31/17 22:00 61 17 94/41 100 Nasal Cannula 2.0 05/31/17 21:00 60 16 102/49 100 Nasal Cannula 2.0 05/31/17 20:30 60 14 110/52 100 Nasal Cannula 2.0 05/31/17 20:00 97.8 60 14 97/47 100 Nasal Cannula 2.0 05/31/17 19:30 95 Nasal Cannula 2.0 28 05/31/17 19:30 Nasal Cannula 2.0 28 05/31/17 19:00 62 15 116/54 100 Nasal Cannula 2.0 05/31/17 18:58 66/42 05/31/17 18:00 60 05/31/17 18:00 60 15 99/42 100 Nasal Cannula 2.0 05/31/17 17:38 97.5 61 13 107/52 100 Nasal Cannula 2.0 05/31/17 16:58 60 13 105/52 100 Nasal Cannula 2.0 05/31/17 16:10 96.8 60 15 99/51 100 Nasal Cannula 2.0 05/31/17 16:05 96.8 60 14 100/56 100 Nasal Cannula 2.0 05/31/17 16:00 96.8 60 12 103/57 100 Nasal Cannula 2.0 05/31/17 15:55 96.9 60 14 05/31/17 15:55 96.9 60 14 104/54 100 Nasal Cannula 2.0 05/31/17 15:40 96.7 60 14 99/55 100 Nasal Cannula 2.0 05/31/17 15:00 96.6 60 13 99/53 100 Nasal Cannula 2.0 05/31/17 14:55 96.5 60 13 107/56 100 Nasal Cannula 2.0 05/31/17 14:50 96.5 60 13 106/57 100 Nasal Cannula 2.0 05/31/17 14:45 96.6 60 13 05/31/17 14:45 96.6 60 13 109/58 100 Nasal Cannula 2.0 05/31/17 14:30 96.2 60 12 107/54 100 Nasal Cannula 2.0 05/31/17 14:25 95.8 60 15 95/53 100 Nasal Cannula 2.0 Intake and Output 06/01/17 06/02/17 19:00 07:00 Intake Total 875 ml Output Total 1100 ml Balance -225 ml IV Total 875 ml Output Urine Total 1100 ml Stool Total 0 ml # Bowel Movements 1 Laboratory Tests 05/31/17 18:43: Reticulocyte Count 0.4, Haptoglobin [Pending], Fibrinogen 313, Soluble Transferrin Receptor [Pending], Methylmalonic Acid [Pending] 06/01/17 05:20: White Blood Count 18.3#H, Red Blood Count 3.18L, Hemoglobin 10.5L, Hematocrit 31.1L, Mean Corpuscular Volume 98, Mean Corpuscular Hemoglobin 33.1H, Mean Corpuscular Hemoglobin Concent 33.9, Red Cell Distribution Width 14.0, Platelet Count 106L, Mean Platelet Volume 10.7H, Neutrophils (%) (Auto) , Lymphocytes (% ) (Auto) , Monocytes (%) (Auto) , Eosinophils (%) (Auto) , Basophils (%) (Auto) , Differential Total Cells Counted 100, Neutrophils % (Manual) 85H, Lymphocytes % (Manual) 12L, Monocytes % (Manual) 3, Eosinophils % (Manual) 0, Basophils % ( Manual) 0, Band Neutrophils 0, Platelet Estimate DecreasedL, Platelet Morphology Normal, Hypochromasia 1+, Sodium Level 137, Potassium Level 5.1, Chloride Level 106, Carbon Dioxide Level 22, Anion Gap 9, Blood Urea Nitrogen 72H, Creatinine 2.6H, Estimat Glomerular Filtration Rate , Glucose Level 129H, Hemoglobin A1c 6.9H, Uric Acid 10.2H, Calcium Level 8.7, Phosphorus Level 5.4H, Magnesium Level 2.0, Iron Level 54, Total Iron Binding Capacity 218L, Percent Iron Saturation 25, Unsaturated Iron Binding 164, Ferritin 82, Total Bilirubin 1.4H, Direct Bilirubin 0.2, Gamma Glutamyl Transpeptidase 18, Aspartate Amino Transf (AST/SGOT) 17, Alanine Aminotransferase (ALT/SGPT) 16, Alkaline Phosphatase 73, Total Creatine Kinase 39, C-Reactive Protein, Quantitative 3.2H , Pro-B-Type Natriuretic Peptide 2318H, Total Protein 5.7L, Albumin 2.8L, Globulin 2.9, Albumin/Globulin Ratio 1.0, Triglycerides Level 76, Cholesterol Level 84, LDL Cholesterol 38, HDL Cholesterol 30L, Cholesterol/HDL Ratio 2.8L, Lipase 407H, Vitamin B12 Level 96L, Folate [Pending], Thyroid Stimulating Hormone (TSH) 0.371, HIV (1&2) Antibody Rapid [Pending] 06/01/17 13:00: Prothrombin Time 11.1, Prothromb Time International Ratio 1.1, Activated Partial Thromboplast Time 29 Height (Feet): 5 Height (Inches): 0.00 Weight (Pounds): 160 General Appearance: lethargic Cardiovascular: normal rate Respiratory/Chest: decreased breath sounds Abdomen: distended Objective no other changes ALOK VILLALTA Jun 01, 2017 14:24
[2017-06-01] MEDS: Vitamin B12 1000mcg/ml Inj SUBQ SCH (16:11)
[2017-06-01] MEDS ORDERED: D5 1/2NS 1000ml IV ONE (17:04)
[2017-06-01] MEDS ORDERED: D5W 275ml ONE (17:04)
[2017-06-01] MEDS ORDERED: 1/2 NS 1000ml IV ONE (17:04)
--- NOTE | 2017-06-01 17:16 | General Progress Note ---
Assessment/Plan Assessment/Plan ASSESSMENT AND RECOMMENDATIONS: 1. Anemia secondary to gastrointestinal bleed. To be evaluated by GI service and potentially receive egd/colo. Continue to closely monitor. 2. Macrocytosis potentially secondary to liver disease. Continue to monitor. 3. Supratherapeutic INR. Coumadin currently on hold due to procedure. Vitamin K has been administered 4. Pancreatitis. Subjective Constitutional: Reports: no symptoms HEENT: Reports: no symptoms Cardiovascular: Reports: no symptoms Respiratory: Reports: no symptoms Gastrointestinal/Abdominal: Reports: no symptoms Genitourinary: Reports: no symptoms Neurologic/Psychiatric: Reports: no symptoms Endocrine: Reports: no symptoms Hematologic/Lymphatic: Reports: no symptoms Allergies: Coded Allergies: No Known Allergies (Unverified , 05/31/17) Subjective NAD Objective Last 24 Hour Vital Signs Date Time Temp Pulse Resp B/P (MAP) Pulse Ox O2 Delivery O2 Flow Rate FiO2 06/01/17 17:00 68 18 112/42 98 Nasal Cannula 2.0 06/01/17 16:00 98.5 69 16 95/71 100 Nasal Cannula 2.0 06/01/17 16:00 69 06/01/17 15:00 68 18 106/42 100 Nasal Cannula 2.0 06/01/17 14:00 73 18 111/49 100 Nasal Cannula 2.0 06/01/17 13:00 70 18 104/39 100 Nasal Cannula 2.0 06/01/17 12:00 67 06/01/17 12:00 98.1 69 16 106/41 100 Nasal Cannula 2.0 06/01/17 11:00 70 16 104/39 100 Nasal Cannula 2.0 06/01/17 10:00 68 15 102/40 100 Nasal Cannula 2.0 06/01/17 09:00 68 15 97/40 100 Nasal Cannula 2.0 06/01/17 08:00 66 06/01/17 08:00 97.6 67 18 102/44 100 Nasal Cannula 2.0 06/01/17 07:00 68 14 97/40 100 Nasal Cannula 2.0 06/01/17 06:00 67 14 109/44 100 Nasal Cannula 2.0 06/01/17 05:00 69 14 110/59 100 Nasal Cannula 2.0 06/01/17 04:00 61 06/01/17 04:00 97.4 69 14 88/39 100 Nasal Cannula 2.0 06/01/17 03:00 72 14 102/44 100 Nasal Cannula 2.0 06/01/17 02:00 68 18 100/40 100 Nasal Cannula 2.0 06/01/17 01:00 68 19 116/49 100 Nasal Cannula 2.0 06/01/17 00:00 97.6 68 16 91/46 100 Nasal Cannula 2.0 06/01/17 00:00 60 05/31/17 23:00 62 17 86/41 100 Nasal Cannula 2.0 05/31/17 22:00 61 17 94/41 100 Nasal Cannula 2.0 05/31/17 21:00 60 16 102/49 100 Nasal Cannula 2.0 05/31/17 20:30 60 14 110/52 100 Nasal Cannula 2.0 05/31/17 20:00 97.8 60 14 97/47 100 Nasal Cannula 2.0 05/31/17 19:30 95 Nasal Cannula 2.0 28 05/31/17 19:30 Nasal Cannula 2.0 28 05/31/17 19:00 62 15 116/54 100 Nasal Cannula 2.0 05/31/17 18:58 66/42 05/31/17 18:00 60 05/31/17 18:00 60 15 99/42 100 Nasal Cannula 2.0 05/31/17 17:38 97.5 61 13 107/52 100 Nasal Cannula 2.0 Intake and Output 06/01/17 06/02/17 19:00 07:00 Intake Total 875 ml Output Total 1330 ml Balance -455 ml IV Total 875 ml Output Urine Total 1330 ml Stool Total 0 ml # Bowel Movements 1 Laboratory Tests 05/31/17 18:43: Reticulocyte Count 0.4, Haptoglobin [Pending], Fibrinogen 313, Soluble Transferrin Receptor [Pending], Methylmalonic Acid [Pending] 06/01/17 05:20: White Blood Count 18.3#H, Red Blood Count 3.18L, Hemoglobin 10.5L, Hematocrit 31.1L, Mean Corpuscular Volume 98, Mean Corpuscular Hemoglobin 33.1H, Mean Corpuscular Hemoglobin Concent 33.9, Red Cell Distribution Width 14.0, Platelet Count 106L, Mean Platelet Volume 10.7H, Neutrophils (%) (Auto) , Lymphocytes (% ) (Auto) , Monocytes (%) (Auto) , Eosinophils (%) (Auto) , Basophils (%) (Auto) , Differential Total Cells Counted 100, Neutrophils % (Manual) 85H, Lymphocytes % (Manual) 12L, Monocytes % (Manual) 3, Eosinophils % (Manual) 0, Basophils % ( Manual) 0, Band Neutrophils 0, Platelet Estimate DecreasedL, Platelet Morphology Normal, Hypochromasia 1+, Sodium Level 137, Potassium Level 5.1, Chloride Level 106, Carbon Dioxide Level 22, Anion Gap 9, Blood Urea Nitrogen 72H, Creatinine 2.6H, Estimat Glomerular Filtration Rate , Glucose Level 129H, Hemoglobin A1c 6.9H, Uric Acid 10.2H, Calcium Level 8.7, Phosphorus Level 5.4H, Magnesium Level 2.0, Iron Level 54, Total Iron Binding Capacity 218L, Percent Iron Saturation 25, Unsaturated Iron Binding 164, Ferritin 82, Total Bilirubin 1.4H, Direct Bilirubin 0.2, Gamma Glutamyl Transpeptidase 18, Aspartate Amino Transf (AST/SGOT) 17, Alanine Aminotransferase (ALT/SGPT) 16, Alkaline Phosphatase 73, Total Creatine Kinase 39, C-Reactive Protein, Quantitative 3.2H , Pro-B-Type Natriuretic Peptide 2318H, Total Protein 5.7L, Albumin 2.8L, Globulin 2.9, Albumin/Globulin Ratio 1.0, Triglycerides Level 76, Cholesterol Level 84, LDL Cholesterol 38, HDL Cholesterol 30L, Cholesterol/HDL Ratio 2.8L, Lipase 407H, Vitamin B12 Level 96L, Folate [Pending], Thyroid Stimulating Hormone (TSH) 0.371, HIV (1&2) Antibody Rapid Negative 06/01/17 13:00: Prothrombin Time 11.1, Prothromb Time International Ratio 1.1, Activated Partial Thromboplast Time 29 06/01/17 15:47: Hepatitis A IgM Antibody [Pending], Hepatitis B Surface Antigen [Pending], Hepatitis B Core IgM Antibody [Pending], Hepatitis C Antibody [Pending] Height (Feet): 5 Height (Inches): 0.00 Weight (Pounds): 160 General Appearance: no apparent distress EENT: normal ENT inspection Neck: normal inspection Cardiovascular: no gallop/murmur Respiratory/Chest: no accessory muscle use Extremities: normal inspection Neurologic: responsive Kenny Castle Jun 01, 2017 17:16
--- NOTE | 2017-06-01 17:47 | Consultation ---
DATE OF CONSULTATION: 06/01/2017 REASON FOR CONSULTATION: Urinary retention. Barron catheter placement. HISTORY OF PRESENT ILLNESS: The patient is an 86-year-old female, who was admitted for atrial fibrillations, on Coumadin and hypertension, presented to [facility] with a gastrointestinal bleed. I was asked to evaluate her for poor urine output and placement of a Barron catheter. PAST MEDICAL HISTORY: She has past medical history of renal failure, gastrointestinal bleed, anemia, congestive heart failure, and atrial fibrillation. PAST SURGICAL HISTORY: None noted. ALLERGIES: No known allergies. FAMILY HISTORY: Noncontributory. REVIEW OF SYSTEMS: Difficult to obtain from the patient. She does not have any major urologic complaints at this point. PHYSICAL EXAMINATION: VITAL SIGNS: Reviewed. GENERAL: No acute distress. CARDIOVASCULAR: Regular rate and rhythm. ABDOMEN: Soft and nontender. EXTREMITIES: There is 1+ edema. LABORATORY DATA: WBC is 6.5, hemoglobin 9.6, and hematocrit 29. BUN 6.1 and creatinine is 2.3. ASSESSMENT: 1. Renal insufficiency. 2. Urinary retention. RECOMMENDATIONS: 1. Placement of the Barron catheter. 2. Prophylactic antibiotics. 3. We will follow this patient with you. Khalif Hightower M.D. DR: TRINITY JOB#: [id number] CC:
[2017-06-01] MEDS ORDERED: Ferrous Sulfate 300 MG/5 ML UDC GT SCH (18:00)
--- NOTE | 2017-06-01 18:13 | GI Progress Note ---
Assessment/Plan Problems: (1) Leukocytosis ICD Codes: D72.829 - Elevated white blood cell count, unspecified SNOMED: 020912792, 824862990 (2) Elevated troponin ICD Codes: R74.8 - Abnormal levels of other serum enzymes SNOMED: 962211490, 099662540 (3) GI bleed ICD Codes: K92.2 - Gastrointestinal hemorrhage, unspecified SNOMED: 49458553 (4) Pancreatitis ICD Codes: K85.90 - Acute pancreatitis without necrosis or infection, unspecified SNOMED: 31840985 (5) Supratherapeutic INR ICD Codes: R79.1 - Abnormal coagulation profile SNOMED: 945857957, 159827389 (6) Anemia ICD Codes: D64.9 - Anemia, unspecified SNOMED: 404306103, 833379638 Status: progressing, unchanged Status Narrative Discussed with Dr. Irizarry. Assessment/Plan no noted active rectal bleed at this time elevated INR >> 6.0 >> now normal elevated troponin >> 0.09 elevated lipase >> 600 + pacemaker present EGD/colonoscopy vs flex sig when patient is stable >> will require cardiac clearance prior procedure. CLD + IVFs + electrolyte replacement anemia work up >> B12 deficiency replacement monitor H&H, transfusions prn coagulopathy correction >> now normalized PPI BID repeat lipase >> downtrending fu labs fu hep panel The patient was seen and examined at bedside and all new and available data was reviewed in the patients chart. I agree with the above findings, impression and plan. (Patient seen earlier today. Signature stamp does not reflect patient encounter time.). - Shahzad Irizarry MD Subjective Subjective generalized weakness Objective Last 24 Hour Vital Signs Date Time Temp Pulse Resp B/P (MAP) Pulse Ox O2 Delivery O2 Flow Rate FiO2 06/01/17 17:00 68 18 112/42 98 Nasal Cannula 2.0 06/01/17 16:00 98.5 69 16 95/71 100 Nasal Cannula 2.0 06/01/17 16:00 69 06/01/17 15:00 68 18 106/42 100 Nasal Cannula 2.0 06/01/17 14:00 73 18 111/49 100 Nasal Cannula 2.0 06/01/17 13:00 70 18 104/39 100 Nasal Cannula 2.0 06/01/17 12:00 67 06/01/17 12:00 98.1 69 16 106/41 100 Nasal Cannula 2.0 06/01/17 11:00 70 16 104/39 100 Nasal Cannula 2.0 06/01/17 10:00 68 15 102/40 100 Nasal Cannula 2.0 06/01/17 09:00 68 15 97/40 100 Nasal Cannula 2.0 06/01/17 08:00 66 06/01/17 08:00 97.6 67 18 102/44 100 Nasal Cannula 2.0 06/01/17 07:00 68 14 97/40 100 Nasal Cannula 2.0 06/01/17 06:00 67 14 109/44 100 Nasal Cannula 2.0 06/01/17 05:00 69 14 110/59 100 Nasal Cannula 2.0 06/01/17 04:00 61 06/01/17 04:00 97.4 69 14 88/39 100 Nasal Cannula 2.0 06/01/17 03:00 72 14 102/44 100 Nasal Cannula 2.0 06/01/17 02:00 68 18 100/40 100 Nasal Cannula 2.0 06/01/17 01:00 68 19 116/49 100 Nasal Cannula 2.0 06/01/17 00:00 97.6 68 16 91/46 100 Nasal Cannula 2.0 06/01/17 00:00 60 05/31/17 23:00 62 17 86/41 100 Nasal Cannula 2.0 05/31/17 22:00 61 17 94/41 100 Nasal Cannula 2.0 05/31/17 21:00 60 16 102/49 100 Nasal Cannula 2.0 05/31/17 20:30 60 14 110/52 100 Nasal Cannula 2.0 05/31/17 20:00 97.8 60 14 97/47 100 Nasal Cannula 2.0 05/31/17 19:30 95 Nasal Cannula 2.0 28 05/31/17 19:30 Nasal Cannula 2.0 28 05/31/17 19:00 62 15 116/54 100 Nasal Cannula 2.0 05/31/17 18:58 66/42 Intake and Output 06/01/17 06/02/17 19:00 07:00 Intake Total 1025 ml Output Total 1330 ml Balance -305 ml IV Total 1025 ml Output Urine Total 1330 ml Stool Total 0 ml # Bowel Movements 1 Laboratory Tests Test 05/31/17 18:43 06/01/17 05:20 06/01/17 13:00 06/01/17 15:47 Reticulocyte Count 0.4 % (0.0-2.0) Haptoglobin Pending Fibrinogen 313 mg/dL (200-400) Soluble Transferrin Receptor Pending Methylmalonic Acid Pending White Blood Count 18.3 K/UL (4.8-10.8) #H Red Blood Count 3.18 M/UL (4.20-5.40) L Hemoglobin 10.5 G/DL (12.0-16.0) L Hematocrit 31.1 % (37.0-47.0) L Mean Corpuscular Volume 98 FL (80-99) Mean Corpuscular Hemoglobin 33.1 PG (27.0-31.0) H Mean Corpuscular Hemoglobin Concent 33.9 G/DL (32.0-36.0) Red Cell Distribution Width 14.0 % (11.6-14.8) Platelet Count 106 K/UL (150-450) L Mean Platelet Volume 10.7 FL (6.5-10.1) H Neutrophils (%) (Auto) % (45.0-75.0) Lymphocytes (%) (Auto) % (20.0-45.0) Monocytes (%) (Auto) % (1.0-10.0) Eosinophils (%) (Auto) % (0.0-3.0) Basophils (%) (Auto) % (0.0-2.0) Differential Total Cells Counted 100 Neutrophils % (Manual) 85 % (45-75) H Lymphocytes % (Manual) 12 % (20-45) L Monocytes % (Manual) 3 % (1-10) Eosinophils % (Manual) 0 % (0-3) Basophils % (Manual) 0 % (0-2) Band Neutrophils 0 % (0-8) Platelet Estimate Decreased L Platelet Morphology Normal Hypochromasia 1+ Sodium Level 137 MMOL/L (136-145) Potassium Level 5.1 MMOL/L (3.5-5.1) Chloride Level 106 MMOL/L (98-107) Carbon Dioxide Level 22 MMOL/L (21-32) Anion Gap 9 (5-15) Blood Urea Nitrogen 72 mg/dL (7-18) H Creatinine 2.6 MG/DL (0.55-1.30) H Estimat Glomerular Filtration Rate mL/min (>60) Glucose Level 129 MG/DL (74-106) H Hemoglobin A1c 6.9 % (4.5-6.5) H Uric Acid 10.2 MG/DL (2.6-7.2) H Calcium Level 8.7 MG/DL (8.5-10.1) Phosphorus Level 5.4 MG/DL (2.5-4.9) H Magnesium Level 2.0 MG/DL (1.8-2.4) Iron Level 54 ug/dL (50-175) Total Iron Binding Capacity 218 ug/dL (250-450) L Percent Iron Saturation 25 % (15-50) Unsaturated Iron Binding 164 ug/dL (112-346) Ferritin 82 NG/ML (8-388) Total Bilirubin 1.4 MG/DL (0.2-1.0) H Direct Bilirubin 0.2 MG/DL (0.0-0.3) Gamma Glutamyl Transpeptidase 18 U/L (5-85) Aspartate Amino Transf (AST/SGOT) 17 U/L (15-37) Alanine Aminotransferase (ALT/SGPT) 16 U/L (12-78) Alkaline Phosphatase 73 U/L (46-116) Total Creatine Kinase 39 U/L (26-308) C-Reactive Protein, Quantitative 3.2 mg/dL (0.00-0.90) H Pro-B-Type Natriuretic Peptide 2318 (0-125) H Total Protein 5.7 G/DL (6.4-8.2) L Albumin 2.8 G/DL (3.4-5.0) L Globulin 2.9 g/dL Albumin/Globulin Ratio 1.0 (1.0-2.7) Triglycerides Level 76 MG/DL (0-200) Cholesterol Level 84 MG/DL (< 200) LDL Cholesterol 38 mg/dL (<100) HDL Cholesterol 30 MG/DL (40-60) L Cholesterol/HDL Ratio 2.8 (3.3-4.4) L Lipase 407 U/L (73-393) H Vitamin B12 Level 96 PG/ML (193-986) L Folate Pending Thyroid Stimulating Hormone (TSH) 0.371 uiU/mL (0.360-3.740) HIV (1&2) Antibody Rapid Negative (NEGATIVE) Prothrombin Time 11.1 SEC (9.30-11.50) Prothromb Time International Ratio 1.1 (0.9-1.1) Activated Partial Thromboplast Time 29 SEC (23-33) Hepatitis A IgM Antibody Pending Hepatitis B Surface Antigen Pending Hepatitis B Core IgM Antibody Pending Hepatitis C Antibody Pending Height (Feet): 5 Height (Inches): 0.00 Weight (Pounds): 160 General Appearance: no apparent distress, alert Cardiovascular: normal rate Respiratory/Chest: normal breath sounds, no respiratory distress Abdominal Exam: normal bowel sounds, non tender, soft Juliana Yousif N.P. Jun 01, 2017 18:13 WAYNE IRIZARRY Jun 03, 2017 09:20
[2017-06-01] MEDS ORDERED: Vitamin B12 1000mcg/ml Inj IM ONE (18:15)
[2017-06-01] MEDS: Pantoprazole Inj IVP SCH (21:13)
--- NOTE | 2017-06-01 21:16 | History and Physical Report ---
DATE OF ADMISSION: 05/31/2017 REASON FOR ADMISSION: Gastrointestinal bleeding. HISTORY OF PRESENT ILLNESS: The patient is admitted to ICU for fresh blood per rectum that she discovered yesterday. The patient is on Coumadin for arrhythmia. The patient's blood pressure was also low. Transfusion was ordered. The patient also had coagulopathy and was hypotensive, INR was greater than 6. The patient also complained of severe weakness, difficult for her to walk yesterday, and also complained of back pain. Denies orthopnea. Denies chest pain. Denies shortness of breath. Denies history of peptic ulcer disease. Denies heartburn. The patient also has pancreatitis. PAST MEDICAL HISTORY: Hyperlipidemia, hypertension, arrhythmia/atrial fibrillation, history of hemorrhoids. PAST SURGICAL HISTORY: Hysterectomy and pacemaker. ALLERGIES: No known allergies. MEDICATIONS: Coumadin, Lipitor, enalapril, sotalol, Demadex, verapamil, and spironolactone. SOCIAL HISTORY: The patient denies history of smoking, alcohol, or illicit drugs. FAMILY HISTORY: Noncontributory. REVIEW OF SYSTEMS: HEENT: Denies headaches. RESPIRATORY: Denies shortness of breath. Denies cough. CARDIOVASCULAR: Denies chest pain. Denies orthopnea. GASTROINTESTINAL: Does have fresh blood per rectum since yesterday. Denies abdominal pain. Denies nausea or vomiting. Denies constipation. Does have history of hemorrhoids. EXTREMITIES: Reports back pain, which has been getting worse lately. The patient has a chronic back pain. CENTRAL NERVOUS SYSTEM: Denies any change in vision or speech pattern. [place] very weak. Difficulty walking due to weakness and fatigue which happened yesterday. PHYSICAL EXAMINATION: VITAL SIGNS: Temperature is 97.4 degrees, pulse 61, and blood pressure 88/39. HEENT: PERRLA. NECK: Supple. No lymphadenopathy. CHEST: Clear to auscultation. CARDIOVASCULAR: Irregulary irregular. Pacemaker click is heard. GASTROINTESTINAL: Soft, nontender. Positive bowel sounds. No organomegaly. EXTREMITIES: A 1+ edema. Reflexes are equal on both sides. She has been able to move extremities however has generalized weakness. LABORATORY DATA: WBC of 6.5, hemoglobin 9.6, and platelets 130,000. Sodium 137, potassium 5.1, BUN of 72, and creatinine 2.6, glucose of 129. Iron of 54, calcium 8.7. BNP of 2318. ASSESSMENT AND PLAN: 1. Rectal bleeding. 2. Coagulopathy. 3. Hypotensive. I have asked Dr. Haywood, Dr. Castle, Dr. Valladares, , and Dr. Hale to see the patient for the above-mentioned diagnosis and treatment as well as for urinary retention. The patient stated that she cannot urinate on her own so the Barron catheter needs to be placed for her to help with urination. Dr. Haywood also will take of arrhythmia and the blood pressure medication control. Ty Fisher M.D. DR: STACY JOB#: [id number] CC:
[2017-06-02] VITALS (24 sets, daily range): BP systolic 84–112; BP diastolic 39–68
[2017-06-02] MEDS: Pantoprazole Inj IVP SCH ×2 (05:14→22:05)
[2017-06-02 07:07] LABS: BASOPHILS % (AUTO) 0.4 % (0.0-2.0); EOSINOPHILS % (AUTO) 0.4 % (0.0-3.0); LYMPHOCYTES % (AUTO) 10.5 % (20.0-45.0); MEAN CORPUSCULAR HEMOGLOBIN 32.7 PG (27.0-31.0); MEAN CORPUSCULAR HGB CONC 32.9 G/DL (32.0-36.0); MEAN CORPUSCULAR VOLUME 99 FL (80-99); MEAN PLATELET VOLUME 9.6 FL (6.5-10.1); MONOCYTES % (AUTO) 8.9 % (1.0-10.0); NEUTROPHILS % (AUTO) 79.7 % (45.0-75.0); PLATELET COUNT 100 K/UL (150-450); RED BLOOD COUNT 2.55 M/UL (4.20-5.40); RED CELL DISTRIBUTION WIDTH 14.2 % (11.6-14.8); WHITE BLOOD COUNT 13.6 K/UL (4.8-10.8)
[2017-06-02 07:14] LABS: ALANINE AMINOTRANSFERASE 12 U/L (12-78); ALBUMIN/GLOBULIN RATIO 0.9 (1.0-2.7); ANION GAP 7 (5-15); ASPARTATE AMINO TRANSFERASE 13 U/L (15-37); CALCIUM 8.4 MG/DL (8.5-10.1); CARBON DIOXIDE 24 MMOL/L (21-32); CHLORIDE 111 MMOL/L (98-107); CREATININE 2.4 MG/DL (0.55-1.30); CRP QUANT 9.1 mg/dL (0.00-0.90); MAGNESIUM 2.1 MG/DL (1.8-2.4); PHOSPHORUS 4.3 MG/DL (2.5-4.9); POTASSIUM 5.1 MMOL/L (3.5-5.1); SODIUM 142 MMOL/L (136-145); TOTAL PROTEIN 5.2 G/DL (6.4-8.2); URIC ACID 9.9 MG/DL (2.6-7.2)
[2017-06-02 07:36] LABS: BILIRUBIN,DIRECT 0.2 MG/DL (0.0-0.3)
[2017-06-02] MEDS: Vitamin B12 1000mcg/ml Inj SUBQ SCH (09:00)
--- NOTE | 2017-06-02 13:01 | GI Progress Note ---
Assessment/Plan Problems: (1) Leukocytosis ICD Codes: D72.829 - Elevated white blood cell count, unspecified SNOMED: 428978602, 058329790 (2) Elevated troponin ICD Codes: R74.8 - Abnormal levels of other serum enzymes SNOMED: 308792659, 540540422 (3) GI bleed ICD Codes: K92.2 - Gastrointestinal hemorrhage, unspecified SNOMED: 65041691 (4) Pancreatitis ICD Codes: K85.90 - Acute pancreatitis without necrosis or infection, unspecified SNOMED: 40758049 (5) Supratherapeutic INR ICD Codes: R79.1 - Abnormal coagulation profile SNOMED: 294193864, 756088003 (6) Anemia ICD Codes: D64.9 - Anemia, unspecified SNOMED: 613314118, 978052974 Status: progressing Status Narrative Discussed with Dr. Irizarry. Assessment/Plan no noted active rectal bleed at this time elevated INR >> 6.0 >> now normal elevated troponin >> 0.09 elevated lipase >> 600 + pacemaker present hep panel >> negative EGD/colonoscopy vs flex sig when patient is stable >> will require cardiac clearance prior procedure. CLD + IVFs + electrolyte replacement anemia work up >> B12 deficiency replacement monitor H&H, transfusions prn coagulopathy correction >> now normalized PPI BID repeat lipase >> downtrending fu labs The patient was seen and examined at bedside and all new and available data was reviewed in the patients chart. I agree with the above findings, impression and plan. (Patient seen earlier today. Signature stamp does not reflect patient encounter time.). - Shahzad Irizarry MD Subjective Subjective generalized weakness feels better Objective Last 24 Hour Vital Signs Date Time Temp Pulse Resp B/P (MAP) Pulse Ox O2 Delivery O2 Flow Rate FiO2 06/02/17 12:00 106 17 97/57 100 Nasal Cannula 2.0 06/02/17 12:00 106 06/02/17 11:00 109 15 98/52 100 Nasal Cannula 2.0 06/02/17 10:00 73 15 106/51 100 Nasal Cannula 2.0 06/02/17 09:47 106/49 06/02/17 09:00 70 13 96/49 100 Nasal Cannula 2.0 06/02/17 08:00 70 06/02/17 08:00 97.8 71 13 104/43 100 Nasal Cannula 2.0 06/02/17 07:00 70 13 94/46 100 Nasal Cannula 2.0 06/02/17 06:00 71 14 107/51 100 Nasal Cannula 2.0 06/02/17 05:00 70 14 102/42 100 Nasal Cannula 2.0 06/02/17 04:00 72 06/02/17 04:00 98.2 72 17 95/42 100 Nasal Cannula 2.0 06/02/17 03:00 76 15 103/46 100 Nasal Cannula 2.0 06/02/17 02:00 75 13 98/39 100 Nasal Cannula 2.0 06/02/17 01:00 74 14 101/40 100 Nasal Cannula 2.0 06/02/17 00:00 98.4 71 18 106/40 100 Nasal Cannula 2.0 06/02/17 00:00 74 06/01/17 23:00 72 17 98/39 100 Nasal Cannula 2.0 06/01/17 22:00 70 17 109/44 100 Nasal Cannula 2.0 06/01/17 21:00 70 17 100/50 100 Nasal Cannula 2.0 06/01/17 20:00 71 06/01/17 20:00 98.9 71 17 102/46 100 Nasal Cannula 2.0 06/01/17 19:30 103/39 06/01/17 19:16 96 Nasal Cannula 2.0 28 06/01/17 19:16 Nasal Cannula 2.0 28 06/01/17 19:00 64 16 95/46 100 Nasal Cannula 2.0 06/01/17 18:00 69 16 97/36 99 Nasal Cannula 2.0 06/01/17 17:00 68 18 112/42 98 Nasal Cannula 2.0 06/01/17 16:00 98.5 69 16 95/71 100 Nasal Cannula 2.0 06/01/17 16:00 69 06/01/17 15:00 68 18 106/42 100 Nasal Cannula 2.0 06/01/17 14:00 73 18 111/49 100 Nasal Cannula 2.0 Intake and Output 06/02/17 06/03/17 19:00 07:00 Intake Total 250 ml Output Total 490 ml Balance -240 ml IV Total 250 ml Output Urine Total 490 ml Laboratory Tests Test 06/01/17 15:47 06/01/17 21:00 06/02/17 05:25 Hepatitis A IgM Antibody Negative (Negative) Hepatitis B Surface Antigen Negative (Negative) Hepatitis B Core IgM Antibody Negative (Negative) Hepatitis C Antibody <0.1 s/co ratio Lipase 258 U/L (73-393) White Blood Count 13.6 K/UL (4.8-10.8) H Red Blood Count 2.55 M/UL (4.20-5.40) L Hemoglobin 8.3 G/DL (12.0-16.0) L Hematocrit 25.3 % (37.0-47.0) L Mean Corpuscular Volume 99 FL (80-99) Mean Corpuscular Hemoglobin 32.7 PG (27.0-31.0) H Mean Corpuscular Hemoglobin Concent 32.9 G/DL (32.0-36.0) Red Cell Distribution Width 14.2 % (11.6-14.8) Platelet Count 100 K/UL (150-450) L Mean Platelet Volume 9.6 FL (6.5-10.1) Neutrophils (%) (Auto) 79.7 % (45.0-75.0) H Lymphocytes (%) (Auto) 10.5 % (20.0-45.0) L Monocytes (%) (Auto) 8.9 % (1.0-10.0) Eosinophils (%) (Auto) 0.4 % (0.0-3.0) Basophils (%) (Auto) 0.4 % (0.0-2.0) Sodium Level 142 MMOL/L (136-145) Potassium Level 5.1 MMOL/L (3.5-5.1) Chloride Level 111 MMOL/L (98-107) H Carbon Dioxide Level 24 MMOL/L (21-32) Anion Gap 7 (5-15) Blood Urea Nitrogen 76 mg/dL (7-18) H Creatinine 2.4 MG/DL (0.55-1.30) H Estimat Glomerular Filtration Rate mL/min (>60) Glucose Level 105 MG/DL (74-106) Uric Acid 9.9 MG/DL (2.6-7.2) H Calcium Level 8.4 MG/DL (8.5-10.1) L Phosphorus Level 4.3 MG/DL (2.5-4.9) Magnesium Level 2.1 MG/DL (1.8-2.4) Total Bilirubin 1.1 MG/DL (0.2-1.0) H Direct Bilirubin 0.2 MG/DL (0.0-0.3) Aspartate Amino Transf (AST/SGOT) 13 U/L (15-37) L Alanine Aminotransferase (ALT/SGPT) 12 U/L (12-78) Alkaline Phosphatase 66 U/L (46-116) Troponin I 0.096 ng/mL (0.000-0.056) C-Reactive Protein, Quantitative 9.1 mg/dL (0.00-0.90) H Pro-B-Type Natriuretic Peptide 3253 (0-125) H Total Protein 5.2 G/DL (6.4-8.2) L Albumin 2.4 G/DL (3.4-5.0) L Globulin 2.8 g/dL Albumin/Globulin Ratio 0.9 (1.0-2.7) L Height (Feet): 5 Height (Inches): 0.00 Weight (Pounds): 162 General Appearance: no apparent distress, alert Cardiovascular: normal rate Respiratory/Chest: normal breath sounds, no respiratory distress Abdominal Exam: normal bowel sounds, non tender, soft Juliana Yousif N.P. Jun 02, 2017 13:01 WAYNE IRIZARRY Jun 03, 2017 09:21
--- NOTE | 2017-06-02 14:00 | General Progress Note ---
Assessment/Plan Status: stable Status Narrative Cr lower 2.4 Assessment/Plan Acute renal failure- ? Pre renal ( GI Bleed) on top of Renal GI Bleed- Anemia CHF high Lipase Plan: [facility]ron- by urologist GI eval Transfusion- Echo- pending LORI kidney- small kidneys Subjective ROS Limited/Unobtainable: No Constitutional: Reports: malaise, weakness Allergies: Coded Allergies: No Known Allergies (Unverified , 05/31/17) Objective Last 24 Hour Vital Signs Date Time Temp Pulse Resp B/P (MAP) Pulse Ox O2 Delivery O2 Flow Rate FiO2 06/02/17 13:00 97.2 105 17 90/57 100 Nasal Cannula 2.0 06/02/17 12:00 106 17 97/57 100 Nasal Cannula 2.0 06/02/17 12:00 106 06/02/17 11:00 109 15 98/52 100 Nasal Cannula 2.0 06/02/17 10:00 73 15 106/51 100 Nasal Cannula 2.0 06/02/17 09:47 106/49 06/02/17 09:00 70 13 96/49 100 Nasal Cannula 2.0 06/02/17 08:00 70 06/02/17 08:00 97.8 71 13 104/43 100 Nasal Cannula 2.0 06/02/17 07:00 70 13 94/46 100 Nasal Cannula 2.0 06/02/17 06:00 71 14 107/51 100 Nasal Cannula 2.0 06/02/17 05:00 70 14 102/42 100 Nasal Cannula 2.0 06/02/17 04:00 72 06/02/17 04:00 98.2 72 17 95/42 100 Nasal Cannula 2.0 06/02/17 03:00 76 15 103/46 100 Nasal Cannula 2.0 06/02/17 02:00 75 13 98/39 100 Nasal Cannula 2.0 06/02/17 01:00 74 14 101/40 100 Nasal Cannula 2.0 06/02/17 00:00 98.4 71 18 106/40 100 Nasal Cannula 2.0 06/02/17 00:00 74 06/01/17 23:00 72 17 98/39 100 Nasal Cannula 2.0 06/01/17 22:00 70 17 109/44 100 Nasal Cannula 2.0 06/01/17 21:00 70 17 100/50 100 Nasal Cannula 2.0 06/01/17 20:00 71 06/01/17 20:00 98.9 71 17 102/46 100 Nasal Cannula 2.0 06/01/17 19:30 103/39 06/01/17 19:16 96 Nasal Cannula 2.0 28 06/01/17 19:16 Nasal Cannula 2.0 28 06/01/17 19:00 64 16 95/46 100 Nasal Cannula 2.0 06/01/17 18:00 69 16 97/36 99 Nasal Cannula 2.0 06/01/17 17:00 68 18 112/42 98 Nasal Cannula 2.0 06/01/17 16:00 98.5 69 16 95/71 100 Nasal Cannula 2.0 06/01/17 16:00 69 06/01/17 15:00 68 18 106/42 100 Nasal Cannula 2.0 06/01/17 14:00 73 18 111/49 100 Nasal Cannula 2.0 Intake and Output 06/02/17 06/03/17 19:00 07:00 Intake Total 300 ml Output Total 610 ml Balance -310 ml IV Total 300 ml Output Urine Total 610 ml Laboratory Tests 06/01/17 15:47: Hepatitis A IgM Antibody Negative, Hepatitis B Surface Antigen Negative, Hepatitis B Core IgM Antibody Negative, Hepatitis C Antibody <0.1 06/01/17 21:00: Lipase 258 06/02/17 05:25: White Blood Count 13.6H, Red Blood Count 2.55L, Hemoglobin 8.3L, Hematocrit 25.3L, Mean Corpuscular Volume 99, Mean Corpuscular Hemoglobin 32.7H, Mean Corpuscular Hemoglobin Concent 32.9, Red Cell Distribution Width 14.2, Platelet Count 100L, Mean Platelet Volume 9.6, Neutrophils (%) (Auto) 79.7H, Lymphocytes (%) (Auto) 10.5L, Monocytes (%) (Auto) 8.9, Eosinophils (%) (Auto) 0.4, Basophils (%) (Auto) 0.4, Sodium Level 142, Potassium Level 5.1, Chloride Level 111H, Carbon Dioxide Level 24, Anion Gap 7, Blood Urea Nitrogen 76H, Creatinine 2.4H, Estimat Glomerular Filtration Rate , Glucose Level 105, Uric Acid 9.9H, Calcium Level 8.4L, Phosphorus Level 4.3, Magnesium Level 2.1, Total Bilirubin 1.1H, Direct Bilirubin 0.2, Aspartate Amino Transf (AST/SGOT) 13L, Alanine Aminotransferase (ALT/SGPT) 12, Alkaline Phosphatase 66, Troponin I 0.096H, C- Reactive Protein, Quantitative 9.1H, Pro-B-Type Natriuretic Peptide 3253H, Total Protein 5.2L, Albumin 2.4L, Globulin 2.8, Albumin/Globulin Ratio 0.9L Height (Feet): 5 Height (Inches): 0.00 Weight (Pounds): 162 General Appearance: no apparent distress Objective no other changes ALOK VILLALAT Jun 02, 2017 14:00
[2017-06-02 15:53] LABS: BASOPHILS % (AUTO) 0.5 % (0.0-2.0); EOSINOPHILS % (AUTO) 0.5 % (0.0-3.0); LYMPHOCYTES % (AUTO) 10.3 % (20.0-45.0); MEAN CORPUSCULAR HGB CONC 32.5 G/DL (32.0-36.0); MEAN CORPUSCULAR VOLUME 98 FL (80-99); MEAN PLATELET VOLUME 10.3 FL (6.5-10.1); MONOCYTES % (AUTO) 8.3 % (1.0-10.0); NEUTROPHILS % (AUTO) 80.4 % (45.0-75.0); PLATELET COUNT 106 K/UL (150-450); RED BLOOD COUNT 2.55 M/UL (4.20-5.40); RED CELL DISTRIBUTION WIDTH 13.3 % (11.6-14.8)
[2017-06-02 16:17] LABS: ALANINE AMINOTRANSFERASE 12 U/L (12-78); ALBUMIN/GLOBULIN RATIO 0.8 (1.0-2.7); ANION GAP 7 (5-15); ASPARTATE AMINO TRANSFERASE 14 U/L (15-37); CALCIUM 8.5 MG/DL (8.5-10.1); CARBON DIOXIDE 23 MMOL/L (21-32); CHLORIDE 113 MMOL/L (98-107); CREATININE 1.9 MG/DL (0.55-1.30); LIPASE 273 U/L (73-393); POTASSIUM 4.6 MMOL/L (3.5-5.1); SODIUM 143 MMOL/L (136-145); TOTAL PROTEIN 5.3 G/DL (6.4-8.2)
[2017-06-02] MEDS ORDERED: 1/2 NS 1000ml IV ONE (17:36)
[2017-06-02 18:16] LABS: BILIRUBIN,DIRECT 0.2 MG/DL (0.0-0.3)
--- NOTE | 2017-06-02 20:03 | General Progress Note ---
Assessment/Plan Assessment/Plan ASSESSMENT AND RECOMMENDATIONS: # Anemia 2/2 b12 deficiency. The patient is on b12 supplement. # Anemia secondary to gastrointestinal bleed. To be evaluated by GI service and potentially receive egd/colo. Continue to closely monitor. #. Macrocytosis potentially secondary to liver disease. Continue to monitor. #. Supratherapeutic INR. Coumadin currently on hold due to procedure?. Vitamin K has been administered. Now normal #. Pancreatitis. Subjective ROS Limited/Unobtainable: Yes Allergies: Coded Allergies: No Known Allergies (Unverified , 05/31/17) Subjective no fevers or chills Objective Last 24 Hour Vital Signs Date Time Temp Pulse Resp B/P (MAP) Pulse Ox O2 Delivery O2 Flow Rate FiO2 06/02/17 19:38 95 Nasal Cannula 2.0 28 06/02/17 19:38 Nasal Cannula 2.0 28 06/02/17 19:00 119 17 92/59 99 Nasal Cannula 2.0 06/02/17 18:00 111 15 112/68 99 Nasal Cannula 2.0 06/02/17 17:00 111 16 93/48 99 Nasal Cannula 2.0 06/02/17 16:00 99.0 111 17 103/54 99 Nasal Cannula 2.0 06/02/17 16:00 108 06/02/17 15:00 109 15 87/51 100 Nasal Cannula 2.0 06/02/17 14:00 112 16 84/64 100 Nasal Cannula 2.0 06/02/17 13:00 97.2 105 17 90/57 100 Nasal Cannula 2.0 06/02/17 12:00 106 17 97/57 100 Nasal Cannula 2.0 06/02/17 12:00 106 06/02/17 11:00 109 15 98/52 100 Nasal Cannula 2.0 06/02/17 10:00 73 15 106/51 100 Nasal Cannula 2.0 06/02/17 09:47 106/49 06/02/17 09:00 70 13 96/49 100 Nasal Cannula 2.0 06/02/17 08:00 70 06/02/17 08:00 97.8 71 13 104/43 100 Nasal Cannula 2.0 06/02/17 07:00 70 13 94/46 100 Nasal Cannula 2.0 06/02/17 06:00 71 14 107/51 100 Nasal Cannula 2.0 06/02/17 05:00 70 14 102/42 100 Nasal Cannula 2.0 06/02/17 04:00 72 06/02/17 04:00 98.2 72 17 95/42 100 Nasal Cannula 2.0 06/02/17 03:00 76 15 103/46 100 Nasal Cannula 2.0 06/02/17 02:00 75 13 98/39 100 Nasal Cannula 2.0 06/02/17 01:00 74 14 101/40 100 Nasal Cannula 2.0 06/02/17 00:00 98.4 71 18 106/40 100 Nasal Cannula 2.0 06/02/17 00:00 74 06/01/17 23:00 72 17 98/39 100 Nasal Cannula 2.0 06/01/17 22:00 70 17 109/44 100 Nasal Cannula 2.0 06/01/17 21:00 70 17 100/50 100 Nasal Cannula 2.0 Intake and Output 06/02/17 06/03/17 19:00 07:00 Intake Total 550 ml Output Total 1140 ml Balance -590 ml IV Total 550 ml Output Urine Total 1140 ml Laboratory Tests 06/01/17 21:00: Lipase 258 06/02/17 05:25: White Blood Count 13.6H, Red Blood Count 2.55L, Hemoglobin 8.3L, Hematocrit 25.3L, Mean Corpuscular Volume 99, Mean Corpuscular Hemoglobin 32.7H, Mean Corpuscular Hemoglobin Concent 32.9, Red Cell Distribution Width 14.2, Platelet Count 100L, Mean Platelet Volume 9.6, Neutrophils (%) (Auto) 79.7H, Lymphocytes (%) (Auto) 10.5L, Monocytes (%) (Auto) 8.9, Eosinophils (%) (Auto) 0.4, Basophils (%) (Auto) 0.4, Sodium Level 142, Potassium Level 5.1, Chloride Level 111H, Carbon Dioxide Level 24, Anion Gap 7, Blood Urea Nitrogen 76H, Creatinine 2.4H, Estimat Glomerular Filtration Rate , Glucose Level 105, Uric Acid 9.9H, Calcium Level 8.4L, Phosphorus Level 4.3, Magnesium Level 2.1, Total Bilirubin 1.1H, Direct Bilirubin 0.2, Aspartate Amino Transf (AST/SGOT) 13L, Alanine Aminotransferase (ALT/SGPT) 12, Alkaline Phosphatase 66, Troponin I 0.096H, C- Reactive Protein, Quantitative 9.1H, Pro-B-Type Natriuretic Peptide 3253H, Total Protein 5.2L, Albumin 2.4L, Globulin 2.8, Albumin/Globulin Ratio 0.9L 06/02/17 15:08: Lipase 273, White Blood Count 11.0H, Red Blood Count 2.55L, Hemoglobin 8.1L, Hematocrit 25.0L, Mean Corpuscular Volume 98, Mean Corpuscular Hemoglobin 32.0H , Mean Corpuscular Hemoglobin Concent 32.5, Red Cell Distribution Width 13.3, Platelet Count 106L, Mean Platelet Volume 10.3H, Neutrophils (%) (Auto) 80.4H, Lymphocytes (%) (Auto) 10.3L, Monocytes (%) (Auto) 8.3, Eosinophils (%) (Auto) 0.5, Basophils (%) (Auto) 0.5, Sodium Level 143, Potassium Level 4.6, Chloride Level 113H, Carbon Dioxide Level 23, Anion Gap 7, Blood Urea Nitrogen 66H, Creatinine 1.9H, Estimat Glomerular Filtration Rate , Glucose Level 95, Calcium Level 8.5, Total Bilirubin 1.1H, Direct Bilirubin 0.2, Aspartate Amino Transf ( AST/SGOT) 14L, Alanine Aminotransferase (ALT/SGPT) 12, Alkaline Phosphatase 65, Total Protein 5.3L, Albumin 2.4L, Globulin 2.9, Albumin/Globulin Ratio 0.8L Height (Feet): 5 Height (Inches): 0.00 Weight (Pounds): 162 General Appearance: no apparent distress EENT: normal ENT inspection Neck: normal alignment Cardiovascular: no gallop/murmur Respiratory/Chest: no accessory muscle use 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
--- NOTE | 2017-06-02 20:18 | General Progress Note ---
Assessment/Plan Problem List: (1) Gastrointestinal hemorrhage ICD Codes: K92.2 - Gastrointestinal hemorrhage, unspecified SNOMED: 88520893 (2) Anemia ICD Codes: D64.9 - Anemia, unspecified SNOMED: 877338227, 026196098 (3) Supratherapeutic INR ICD Codes: R79.1 - Abnormal coagulation profile SNOMED: 480853247, 835786006 (4) Pancreatitis ICD Codes: K85.90 - Acute pancreatitis without necrosis or infection, unspecified SNOMED: 26430311 (5) GI bleed ICD Codes: K92.2 - Gastrointestinal hemorrhage, unspecified SNOMED: 03196762 (6) Leukocytosis ICD Codes: D72.829 - Elevated white blood cell count, unspecified SNOMED: 381472183, 448888978 Status: progressing Assessment/Plan anemia gi bleed coagulapathy is improving afebrile pancreatitis is improving moniter for gi bleeding Subjective Respiratory: Reports: shortness of breath Allergies: Coded Allergies: No Known Allergies (Unverified , 05/31/17) Objective Last 24 Hour Vital Signs Date Time Temp Pulse Resp B/P (MAP) Pulse Ox O2 Delivery O2 Flow Rate FiO2 06/02/17 20:07 111 06/02/17 20:02 114 18 103/54 99 Nasal Cannula 2.0 06/02/17 19:38 95 Nasal Cannula 2.0 28 06/02/17 19:38 Nasal Cannula 2.0 28 06/02/17 19:00 119 17 92/59 99 Nasal Cannula 2.0 06/02/17 18:00 111 15 112/68 99 Nasal Cannula 2.0 06/02/17 17:00 111 16 93/48 99 Nasal Cannula 2.0 06/02/17 16:00 99.0 111 17 103/54 99 Nasal Cannula 2.0 06/02/17 16:00 108 06/02/17 15:00 109 15 87/51 100 Nasal Cannula 2.0 06/02/17 14:00 112 16 84/64 100 Nasal Cannula 2.0 06/02/17 13:00 97.2 105 17 90/57 100 Nasal Cannula 2.0 06/02/17 12:00 106 17 97/57 100 Nasal Cannula 2.0 06/02/17 12:00 106 06/02/17 11:00 109 15 98/52 100 Nasal Cannula 2.0 06/02/17 10:00 73 15 106/51 100 Nasal Cannula 2.0 06/02/17 09:47 106/49 06/02/17 09:00 70 13 96/49 100 Nasal Cannula 2.0 06/02/17 08:00 70 06/02/17 08:00 97.8 71 13 104/43 100 Nasal Cannula 2.0 06/02/17 07:00 70 13 94/46 100 Nasal Cannula 2.0 06/02/17 06:00 71 14 107/51 100 Nasal Cannula 2.0 06/02/17 05:00 70 14 102/42 100 Nasal Cannula 2.0 06/02/17 04:00 72 06/02/17 04:00 98.2 72 17 95/42 100 Nasal Cannula 2.0 06/02/17 03:00 76 15 103/46 100 Nasal Cannula 2.0 06/02/17 02:00 75 13 98/39 100 Nasal Cannula 2.0 06/02/17 01:00 74 14 101/40 100 Nasal Cannula 2.0 06/02/17 00:00 98.4 71 18 106/40 100 Nasal Cannula 2.0 06/02/17 00:00 74 06/01/17 23:00 72 17 98/39 100 Nasal Cannula 2.0 06/01/17 22:00 70 17 109/44 100 Nasal Cannula 2.0 06/01/17 21:00 70 17 100/50 100 Nasal Cannula 2.0 Intake and Output 06/02/17 06/03/17 19:00 07:00 Intake Total 550 ml 50 ml Output Total 1140 ml 80 ml Balance -590 ml -30 ml Intake Oral 50 ml IV Total 550 ml Output Urine Total 1140 ml 80 ml Laboratory Tests 06/01/17 21:00: Lipase 258 06/02/17 05:25: White Blood Count 13.6H, Red Blood Count 2.55L, Hemoglobin 8.3L, Hematocrit 25.3L, Mean Corpuscular Volume 99, Mean Corpuscular Hemoglobin 32.7H, Mean Corpuscular Hemoglobin Concent 32.9, Red Cell Distribution Width 14.2, Platelet Count 100L, Mean Platelet Volume 9.6, Neutrophils (%) (Auto) 79.7H, Lymphocytes (%) (Auto) 10.5L, Monocytes (%) (Auto) 8.9, Eosinophils (%) (Auto) 0.4, Basophils (%) (Auto) 0.4, Sodium Level 142, Potassium Level 5.1, Chloride Level 111H, Carbon Dioxide Level 24, Anion Gap 7, Blood Urea Nitrogen 76H, Creatinine 2.4H, Estimat Glomerular Filtration Rate , Glucose Level 105, Uric Acid 9.9H, Calcium Level 8.4L, Phosphorus Level 4.3, Magnesium Level 2.1, Total Bilirubin 1.1H, Direct Bilirubin 0.2, Aspartate Amino Transf (AST/SGOT) 13L, Alanine Aminotransferase (ALT/SGPT) 12, Alkaline Phosphatase 66, Troponin I 0.096H, C- Reactive Protein, Quantitative 9.1H, Pro-B-Type Natriuretic Peptide 3253H, Total Protein 5.2L, Albumin 2.4L, Globulin 2.8, Albumin/Globulin Ratio 0.9L 06/02/17 15:08: Lipase 273, White Blood Count 11.0H, Red Blood Count 2.55L, Hemoglobin 8.1L, Hematocrit 25.0L, Mean Corpuscular Volume 98, Mean Corpuscular Hemoglobin 32.0H , Mean Corpuscular Hemoglobin Concent 32.5, Red Cell Distribution Width 13.3, Platelet Count 106L, Mean Platelet Volume 10.3H, Neutrophils (%) (Auto) 80.4H, Lymphocytes (%) (Auto) 10.3L, Monocytes (%) (Auto) 8.3, Eosinophils (%) (Auto) 0.5, Basophils (%) (Auto) 0.5, Sodium Level 143, Potassium Level 4.6, Chloride Level 113H, Carbon Dioxide Level 23, Anion Gap 7, Blood Urea Nitrogen 66H, Creatinine 1.9H, Estimat Glomerular Filtration Rate , Glucose Level 95, Calcium Level 8.5, Total Bilirubin 1.1H, Direct Bilirubin 0.2, Aspartate Amino Transf ( AST/SGOT) 14L, Alanine Aminotransferase (ALT/SGPT) 12, Alkaline Phosphatase 65, Total Protein 5.3L, Albumin 2.4L, Globulin 2.9, Albumin/Globulin Ratio 0.8L Height (Feet): 5 Height (Inches): 0.00 Weight (Pounds): 162 Abdomen: non tender Ty Fisher MD Jun 02, 2017 20:18
[2017-06-03] VITALS (26 sets, daily range): BP systolic 90–118; BP diastolic 51–76
--- NOTE | 2017-06-03 07:52 | Cardiology Report ---
APPROVED REPORT EXAM: Two-dimensional and M-mode echocardiogram with Doppler and color Doppler. INDICATION Congestive Heart Failure M-Mode DIMENSIONS IVSd1.3 (0.7-1.1cm)Left Atrium (MM)5.9 (1.6-4.0cm) LVDd3.6 (3.5-5.6cm)Aortic Root2.6 (2.0-3.7cm) PWd2.0 (0.7-1.1cm)Aortic Cusp Exc.1.8 (1.5-2.0cm) LVDs2.0 (2.5-4.0cm) PWs1.3 cm Normal left ventricular chamber size, systolic function and wall motion. Left ventricular ejection fraction estimated to be 60-65%. No evidence of left ventricular hypertrophy. No evidence of pericardial or pleural effusion. Right cardiac chamber sizes are within normal limits. Mild left atrial enlargement by 2D. Focal aortic valve sclerosis with adequate cusp excursion. Thickened mitral valve leaflets with normal excursion. Mild mitral annulus and aortic root calcification. Pulmonic valve not well visualized. Normal tricuspid valve structure. IVC is normal in size and collapsible with respiration. Probable pacemaker wire present in the right side chambers. A color flow and spectral Doppler study was performed and revealed: Mild aortic regurgitation. No mitral regurgitation. Mitral diastolic velocities suggest reduced left ventricular relaxation c/w diastolic dysfunction grade 1. Trace tricuspid regurgitation.
[2017-06-03] MEDS: Pantoprazole Inj IVP SCH ×2 (09:05→20:58)
[2017-06-03] MEDS: Vitamin B12 1000mcg/ml Inj SUBQ SCH (09:06)
--- NOTE | 2017-06-03 12:46 | General Progress Note ---
Assessment/Plan Status: stable Status Narrative Cr lower 1.9 Assessment/Plan Acute renal failure- ? Pre renal ( GI Bleed) on top of Renal GI Bleed- Anemia CHF high Lipase Plan: [facility]- by urologist GI eval Transfusion- Echo- 60% Ej Fx LORI kidney- small kidneys continue monitor renal parameters and H&H Subjective ROS Limited/Unobtainable: No Allergies: Coded Allergies: No Known Allergies (Unverified , 05/31/17) Objective Last 24 Hour Vital Signs Date Time Temp Pulse Resp B/P (MAP) Pulse Ox O2 Delivery O2 Flow Rate FiO2 06/03/17 12:00 99.0 122 19 105/65 100 Nasal Cannula 2.0 06/03/17 12:00 120 06/03/17 11:00 120 18 118/64 100 Nasal Cannula 2.0 06/03/17 10:00 128 20 112/57 100 Nasal Cannula 2.0 06/03/17 09:06 110/65 06/03/17 09:00 16 97/70 100 Nasal Cannula 2.0 06/03/17 08:00 97.0 16 109/76 100 Nasal Cannula 2.0 06/03/17 08:00 102 06/03/17 07:00 16 97/56 100 Nasal Cannula 2.0 06/03/17 06:52 Nasal Cannula 2.0 28 06/03/17 06:51 98 Nasal Cannula 2.0 28 06/03/17 06:00 18 100/55 100 Nasal Cannula 2.0 06/03/17 05:00 18 102/55 100 Nasal Cannula 2.0 06/03/17 04:00 109 18 100/56 99 Nasal Cannula 2.0 06/03/17 04:00 100 06/03/17 03:00 103 18 106/56 99 Nasal Cannula 2.0 06/03/17 02:00 103 18 104/56 99 Nasal Cannula 2.0 06/03/17 01:00 112 18 90/51 99 Nasal Cannula 2.0 06/03/17 00:00 113 06/03/17 00:00 113 18 98/51 99 Nasal Cannula 2.0 06/02/17 23:08 106 18 92/53 99 Nasal Cannula 2.0 06/02/17 22:00 113 17 97/51 99 Nasal Cannula 2.0 06/02/17 21:00 109 17 109/64 99 Nasal Cannula 2.0 06/02/17 20:07 111 06/02/17 20:02 114 18 103/54 99 Nasal Cannula 2.0 06/02/17 19:38 95 Nasal Cannula 2.0 28 06/02/17 19:38 Nasal Cannula 2.0 28 06/02/17 19:00 119 17 92/59 99 Nasal Cannula 2.0 06/02/17 18:00 111 15 112/68 99 Nasal Cannula 2.0 06/02/17 17:00 111 16 93/48 99 Nasal Cannula 2.0 06/02/17 16:00 99.0 111 17 103/54 99 Nasal Cannula 2.0 06/02/17 16:00 108 06/02/17 15:00 109 15 87/51 100 Nasal Cannula 2.0 06/02/17 14:00 112 16 84/64 100 Nasal Cannula 2.0 06/02/17 13:00 97.2 105 17 90/57 100 Nasal Cannula 2.0 Intake and Output 06/03/17 06/04/17 19:00 07:00 Intake Total 250 ml Output Total 660 ml Balance -410 ml IV Total 250 ml Output Urine Total 660 ml Laboratory Tests 06/02/17 15:08: White Blood Count 11.0H, Red Blood Count 2.55L, Hemoglobin 8.1L, Hematocrit 25.0L, Mean Corpuscular Volume 98, Mean Corpuscular Hemoglobin 32.0H, Mean Corpuscular Hemoglobin Concent 32.5, Red Cell Distribution Width 13.3, Platelet Count 106L, Mean Platelet Volume 10.3H, Neutrophils (%) (Auto) 80.4H, Lymphocytes (%) (Auto) 10.3L, Monocytes (%) (Auto) 8.3, Eosinophils (%) (Auto) 0.5, Basophils (%) (Auto) 0.5, Sodium Level 143, Potassium Level 4.6, Chloride Level 113H, Carbon Dioxide Level 23, Anion Gap 7, Blood Urea Nitrogen 66H, Creatinine 1.9H, Estimat Glomerular Filtration Rate , Glucose Level 95, Calcium Level 8.5, Total Bilirubin 1.1H, Direct Bilirubin 0.2, Aspartate Amino Transf ( AST/SGOT) 14L, Alanine Aminotransferase (ALT/SGPT) 12, Alkaline Phosphatase 65, Total Protein 5.3L, Albumin 2.4L, Globulin 2.9, Albumin/Globulin Ratio 0.8L, Lipase 273 06/03/17 04:30: Troponin I 0.329H Height (Feet): 5 Height (Inches): 0.00 Weight (Pounds): 162 General Appearance: no apparent distress Respiratory/Chest: lungs clear Abdomen: soft Objective no other changes ALOK VILLALTA Jun 03, 2017 12:46
[2017-06-03] MEDS ORDERED: Digoxin 0.5mg/2ml Inj IVP ONE (13:45)
[2017-06-03 14:22] LABS: OTHERS PATHOLOGIST COMMENT
--- NOTE | 2017-06-03 15:23 | GI Progress Note ---
Assessment/Plan Problems: (1) Leukocytosis ICD Codes: D72.829 - Elevated white blood cell count, unspecified SNOMED: 895589427, 493817619 (2) Elevated troponin ICD Codes: R74.8 - Abnormal levels of other serum enzymes SNOMED: 649577743, 036996583 (3) GI bleed ICD Codes: K92.2 - Gastrointestinal hemorrhage, unspecified SNOMED: 98174849 (4) Pancreatitis ICD Codes: K85.90 - Acute pancreatitis without necrosis or infection, unspecified SNOMED: 41888928 (5) Supratherapeutic INR ICD Codes: R79.1 - Abnormal coagulation profile SNOMED: 158737170, 981973934 (6) Anemia ICD Codes: D64.9 - Anemia, unspecified SNOMED: 037613800, 898544127 Status: not improved Status Narrative Discussed with Dr. Irizarry. Assessment/Plan no noted active rectal bleed at this time elevated INR >> 6.0 >> now normal elevated troponin >> 0.09, increased to .329 today. elevated lipase >> 600 + pacemaker present hep panel >> negative pt to be transferred to [facility]. EGD/colonoscopy vs flex sig when patient is stable >> will require cardiac clearance prior procedure. FLD + IVFs + electrolyte replacement anemia work up >> B12 deficiency replacement monitor H&H, transfusions prn coagulopathy correction >> now normalized PPI BID repeat lipase >> downtrending fu labs Subjective Subjective generalized weakness feels better Objective Last 24 Hour Vital Signs Date Time Temp Pulse Resp B/P (MAP) Pulse Ox O2 Delivery O2 Flow Rate FiO2 06/03/17 14:00 120 19 110/59 100 Nasal Cannula 2.0 06/03/17 13:43 142 06/03/17 13:00 99.0 129 15 98/75 100 Nasal Cannula 2.0 06/03/17 12:00 99.0 122 19 105/65 100 Nasal Cannula 2.0 06/03/17 12:00 120 06/03/17 11:00 120 18 118/64 100 Nasal Cannula 2.0 06/03/17 10:00 128 20 112/57 100 Nasal Cannula 2.0 06/03/17 09:06 110/65 06/03/17 09:00 16 97/70 100 Nasal Cannula 2.0 06/03/17 08:00 97.0 16 109/76 100 Nasal Cannula 2.0 06/03/17 08:00 102 06/03/17 07:00 16 97/56 100 Nasal Cannula 2.0 06/03/17 06:52 Nasal Cannula 2.0 28 06/03/17 06:51 98 Nasal Cannula 2.0 28 06/03/17 06:00 18 100/55 100 Nasal Cannula 2.0 06/03/17 05:00 18 102/55 100 Nasal Cannula 2.0 06/03/17 04:00 109 18 100/56 99 Nasal Cannula 2.0 06/03/17 04:00 100 06/03/17 03:00 103 18 106/56 99 Nasal Cannula 2.0 06/03/17 02:00 103 18 104/56 99 Nasal Cannula 2.0 06/03/17 01:00 112 18 90/51 99 Nasal Cannula 2.0 06/03/17 00:00 113 06/03/17 00:00 113 18 98/51 99 Nasal Cannula 2.0 06/02/17 23:08 106 18 92/53 99 Nasal Cannula 2.0 06/02/17 22:00 113 17 97/51 99 Nasal Cannula 2.0 06/02/17 21:00 109 17 109/64 99 Nasal Cannula 2.0 06/02/17 20:07 111 06/02/17 20:02 114 18 103/54 99 Nasal Cannula 2.0 06/02/17 19:38 95 Nasal Cannula 2.0 28 06/02/17 19:38 Nasal Cannula 2.0 28 06/02/17 19:00 119 17 92/59 99 Nasal Cannula 2.0 06/02/17 18:00 111 15 112/68 99 Nasal Cannula 2.0 06/02/17 17:00 111 16 93/48 99 Nasal Cannula 2.0 06/02/17 16:00 99.0 111 17 103/54 99 Nasal Cannula 2.0 06/02/17 16:00 108 Intake and Output 06/03/17 06/04/17 19:00 07:00 Intake Total 350 ml Output Total 910 ml Balance -560 ml IV Total 350 ml Output Urine Total 910 ml Laboratory Tests Test 06/03/17 04:30 Troponin I 0.329 ng/mL (0.000-0.056) Height (Feet): 5 Height (Inches): 0.00 Weight (Pounds): 162 General Appearance: no apparent distress, alert Cardiovascular: normal rate Respiratory/Chest: normal breath sounds, no respiratory distress Abdominal Exam: soft Juliana Yousif N.P. Jun 03, 2017 15:23
--- NOTE | 2017-06-03 15:25 | General Progress Note ---
Assessment/Plan Assessment/Plan ASSESSMENT AND RECOMMENDATIONS: # Anemia 2/2 b12 deficiency. The patient is on b12 supplement. # Anemia secondary to gastrointestinal bleed. To be evaluated by GI service and potentially receive egd/colo. Continue to closely monitor. --> no current rectal bleeding #. Macrocytosis potentially secondary to liver disease. Continue to monitor. #. Supratherapeutic INR. Coumadin currently on hold due to procedure?. Vitamin K has been administered. Now normal #. Pancreatitis. Subjective Constitutional: Reports: no symptoms HEENT: Reports: no symptoms Cardiovascular: Reports: no symptoms Respiratory: Reports: no symptoms Gastrointestinal/Abdominal: Reports: no symptoms Genitourinary: Reports: no symptoms Neurologic/Psychiatric: Reports: no symptoms Endocrine: Reports: no symptoms Hematologic/Lymphatic: Reports: no symptoms Allergies: Coded Allergies: No Known Allergies (Unverified , 05/31/17) Subjective no major events, afebrile Objective Last 24 Hour Vital Signs Date Time Temp Pulse Resp B/P (MAP) Pulse Ox O2 Delivery O2 Flow Rate FiO2 06/03/17 14:00 120 19 110/59 100 Nasal Cannula 2.0 06/03/17 13:43 142 06/03/17 13:00 99.0 129 15 98/75 100 Nasal Cannula 2.0 06/03/17 12:00 99.0 122 19 105/65 100 Nasal Cannula 2.0 06/03/17 12:00 120 06/03/17 11:00 120 18 118/64 100 Nasal Cannula 2.0 06/03/17 10:00 128 20 112/57 100 Nasal Cannula 2.0 06/03/17 09:06 110/65 06/03/17 09:00 16 97/70 100 Nasal Cannula 2.0 06/03/17 08:00 97.0 16 109/76 100 Nasal Cannula 2.0 06/03/17 08:00 102 06/03/17 07:00 16 97/56 100 Nasal Cannula 2.0 06/03/17 06:52 Nasal Cannula 2.0 28 06/03/17 06:51 98 Nasal Cannula 2.0 28 06/03/17 06:00 18 100/55 100 Nasal Cannula 2.0 06/03/17 05:00 18 102/55 100 Nasal Cannula 2.0 06/03/17 04:00 109 18 100/56 99 Nasal Cannula 2.0 06/03/17 04:00 100 06/03/17 03:00 103 18 106/56 99 Nasal Cannula 2.0 06/03/17 02:00 103 18 104/56 99 Nasal Cannula 2.0 06/03/17 01:00 112 18 90/51 99 Nasal Cannula 2.0 06/03/17 00:00 113 06/03/17 00:00 113 18 98/51 99 Nasal Cannula 2.0 06/02/17 23:08 106 18 92/53 99 Nasal Cannula 2.0 06/02/17 22:00 113 17 97/51 99 Nasal Cannula 2.0 06/02/17 21:00 109 17 109/64 99 Nasal Cannula 2.0 06/02/17 20:07 111 06/02/17 20:02 114 18 103/54 99 Nasal Cannula 2.0 06/02/17 19:38 95 Nasal Cannula 2.0 28 06/02/17 19:38 Nasal Cannula 2.0 28 06/02/17 19:00 119 17 92/59 99 Nasal Cannula 2.0 06/02/17 18:00 111 15 112/68 99 Nasal Cannula 2.0 06/02/17 17:00 111 16 93/48 99 Nasal Cannula 2.0 06/02/17 16:00 99.0 111 17 103/54 99 Nasal Cannula 2.0 06/02/17 16:00 108 Intake and Output 06/03/17 06/04/17 19:00 07:00 Intake Total 350 ml Output Total 910 ml Balance -560 ml IV Total 350 ml Output Urine Total 910 ml Laboratory Tests 06/03/17 04:30: Troponin I 0.329H Height (Feet): 5 Height (Inches): 0.00 Weight (Pounds): 162 General Appearance: no apparent distress EENT: normal ENT inspection Neck: normal inspection Respiratory/Chest: no accessory muscle use Abdomen: no mass Skin: normal pigmentation Kenny Castle Jun 03, 2017 15:25
[2017-06-03] MEDS ORDERED: Amiodarone 900 MG in D5W 500ml 482 ML IV SCH (19:45)
--- NOTE | 2017-06-03 20:44 | General Progress Note ---
Assessment/Plan Problem List: (1) Gastrointestinal hemorrhage ICD Codes: K92.2 - Gastrointestinal hemorrhage, unspecified SNOMED: 85535774 (2) Anemia ICD Codes: D64.9 - Anemia, unspecified SNOMED: 775620741, 751967651 (3) Supratherapeutic INR ICD Codes: R79.1 - Abnormal coagulation profile SNOMED: 267195216, 379430443 (4) Pancreatitis ICD Codes: K85.90 - Acute pancreatitis without necrosis or infection, unspecified SNOMED: 03595232 (5) GI bleed ICD Codes: K92.2 - Gastrointestinal hemorrhage, unspecified SNOMED: 10716100 (6) Leukocytosis ICD Codes: D72.829 - Elevated white blood cell count, unspecified SNOMED: 143347544, 502517398 Status: progressing Assessment/Plan anemia gi bleed coagulapathy is improving afebrile pancreatitis is improving off pressor cad per cardiology will transfer to [facility] for cardiac cath check trop level Subjective Allergies: Coded Allergies: No Known Allergies (Unverified , 05/31/17) Objective Last 24 Hour Vital Signs Date Time Temp Pulse Resp B/P (MAP) Pulse Ox O2 Delivery O2 Flow Rate FiO2 06/03/17 19:38 Nasal Cannula 2.0 28 06/03/17 19:38 100 Nasal Cannula 2.0 28 06/03/17 19:00 119 18 102/60 100 Nasal Cannula 2.0 06/03/17 18:00 121 21 98/71 98 Nasal Cannula 2.0 06/03/17 17:00 122 20 101/53 98 Nasal Cannula 2.0 06/03/17 16:00 98.9 120 20 100/52 98 Nasal Cannula 2.0 06/03/17 16:00 123 15 102/54 100 Nasal Cannula 2.0 06/03/17 16:00 122 06/03/17 15:00 128 23 114/56 98 Nasal Cannula 2.0 06/03/17 14:00 120 19 110/59 100 Nasal Cannula 2.0 06/03/17 13:43 142 06/03/17 13:00 99.0 129 15 98/75 100 Nasal Cannula 2.0 06/03/17 12:00 99.0 122 19 105/65 100 Nasal Cannula 2.0 06/03/17 12:00 120 06/03/17 11:00 120 18 118/64 100 Nasal Cannula 2.0 06/03/17 10:00 128 20 112/57 100 Nasal Cannula 2.0 06/03/17 09:06 110/65 06/03/17 09:00 16 97/70 100 Nasal Cannula 2.0 06/03/17 08:00 97.0 16 109/76 100 Nasal Cannula 2.0 06/03/17 08:00 102 06/03/17 07:00 16 97/56 100 Nasal Cannula 2.0 06/03/17 06:52 Nasal Cannula 2.0 28 06/03/17 06:51 98 Nasal Cannula 2.0 28 06/03/17 06:00 18 100/55 100 Nasal Cannula 2.0 06/03/17 05:00 18 102/55 100 Nasal Cannula 2.0 06/03/17 04:00 109 18 100/56 99 Nasal Cannula 2.0 06/03/17 04:00 100 06/03/17 03:00 103 18 106/56 99 Nasal Cannula 2.0 06/03/17 02:00 103 18 104/56 99 Nasal Cannula 2.0 06/03/17 01:00 112 18 90/51 99 Nasal Cannula 2.0 06/03/17 00:00 113 06/03/17 00:00 113 18 98/51 99 Nasal Cannula 2.0 06/02/17 23:08 106 18 92/53 99 Nasal Cannula 2.0 06/02/17 22:00 113 17 97/51 99 Nasal Cannula 2.0 06/02/17 21:00 109 17 109/64 99 Nasal Cannula 2.0 Intake and Output 06/03/17 06/04/17 19:00 07:00 Intake Total 500 ml Output Total 1560 ml Balance -1060 ml IV Total 500 ml Output Urine Total 1560 ml Laboratory Tests 06/03/17 04:30: Troponin I 0.329H Height (Feet): 5 Height (Inches): 0.00 Weight (Pounds): 162 Respiratory/Chest: lungs clear Abdomen: soft Ty Fisher MD Jun 03, 2017 20:44
[2017-06-04] VITALS (33 sets, daily range): BP systolic 92–136; BP diastolic 57–79
[2017-06-04 06:35] LABS: BASOPHILS % (AUTO) 0.6 % (0.0-2.0); EOSINOPHILS % (AUTO) 0.6 % (0.0-3.0); LYMPHOCYTES % (AUTO) 12.3 % (20.0-45.0); MEAN CORPUSCULAR HEMOGLOBIN 32.7 PG (27.0-31.0); MEAN CORPUSCULAR HGB CONC 32.6 G/DL (32.0-36.0); MEAN CORPUSCULAR VOLUME 100 FL (80-99); MEAN PLATELET VOLUME 9.2 FL (6.5-10.1); MONOCYTES % (AUTO) 11.2 % (1.0-10.0); NEUTROPHILS % (AUTO) 75.4 % (45.0-75.0); PLATELET COUNT 120 K/UL (150-450); RED BLOOD COUNT 2.67 M/UL (4.20-5.40); RED CELL DISTRIBUTION WIDTH 13.3 % (11.6-14.8); WHITE BLOOD COUNT 9.9 K/UL (4.8-10.8)
[2017-06-04 06:57] LABS: ANION GAP 7 (5-15); CALCIUM 8.9 MG/DL (8.5-10.1); CARBON DIOXIDE 25 MMOL/L (21-32); CHLORIDE 109 MMOL/L (98-107); CREATININE 1.5 MG/DL (0.55-1.30); POTASSIUM 4.2 MMOL/L (3.5-5.1); SODIUM 141 MMOL/L (136-145)
--- NOTE | 2017-06-04 09:05 | Diagnostic Imaging Report ---
Indication: PAIN Comparison: None Findings: 3 views of the left ankle show no acute fractures or dislocations. Bony mineralization is decreased. No bony destructive lesions are identified. Talus is intact. Mild degenerative changes in the hindfoot and midfoot are noted. Soft tissues are unremarkable. Impression: No acute fracture or dislocation of the left ankle. Mild degenerative changes in the hindfoot and midfoot. Mild osteopenia
[2017-06-04] MEDS: Pantoprazole Inj IVP SCH ×2 (09:40→21:03)
--- NOTE | 2017-06-04 10:41 | Consultation ---
Consult Note Consult Note PODIATRY CONSULTATION CONSULTING PHYSICIAN: Anjel Pierce DPM COVERING FOR: Magen Pelayo DPM REASON FOR CONSULT: Left ankle pain HISTORY OF PRESENT ILLNESS: Patient states left ankle pain that started one week ago. Patient states no trauma or inciting events. She states a history of gout with pain at the right 1st MPJ in the past. No nausea, vomiting, fevers, or chills reported. SOCIAL HISTORY: No history of tobacco, alcohol, or illicit drug use FAMILY AND SURGICAL HISTORY: No pertinent findings Coded Allergies: No Known Allergies (Unverified , 05/31/17) Objective Objective Exam Last 24 Hour Vital Signs Date Time Temp Pulse Resp B/P (MAP) Pulse Ox O2 Delivery O2 Flow Rate FiO2 06/04/17 10:00 109 18 120/64 100 Nasal Cannula 2.0 06/04/17 09:30 118 18 124/78 100 Nasal Cannula 2.0 06/04/17 09:00 118 18 125/79 100 Nasal Cannula 2.0 06/04/17 08:30 120 18 113/59 100 Nasal Cannula 2.0 06/04/17 08:00 98.4 118 17 117/67 100 Nasal Cannula 2.0 06/04/17 07:30 110 18 92/63 100 Nasal Cannula 2.0 06/04/17 07:00 102 23 117/61 100 Nasal Cannula 2.0 06/04/17 06:00 100 23 114/64 100 Nasal Cannula 2.0 06/04/17 05:00 100 16 106/61 100 Nasal Cannula 2.0 06/04/17 04:00 99 06/04/17 04:00 98.8 99 16 107/66 100 Nasal Cannula 2.0 06/04/17 03:00 104 16 109/62 100 Nasal Cannula 2.0 06/04/17 02:00 103 18 110/64 100 Nasal Cannula 2.0 06/04/17 01:00 108 22 115/62 100 Nasal Cannula 2.0 06/04/17 00:00 98.9 104 18 113/59 100 Nasal Cannula 2.0 06/03/17 23:00 114 16 106/55 100 Nasal Cannula 2.0 06/03/17 22:30 114 17 100/59 100 Nasal Cannula 2.0 06/03/17 22:00 113 23 101/60 100 Nasal Cannula 2.0 06/03/17 21:30 114 21 106/54 100 Nasal Cannula 2.0 06/03/17 21:00 114 16 104/62 100 Nasal Cannula 2.0 06/03/17 20:00 123 06/03/17 20:00 98.8 123 18 101/55 100 Nasal Cannula 2.0 06/03/17 19:38 Nasal Cannula 2.0 28 06/03/17 19:38 100 Nasal Cannula 2.0 28 06/03/17 19:00 119 18 102/60 100 Nasal Cannula 2.0 06/03/17 18:00 121 21 98/71 98 Nasal Cannula 2.0 06/03/17 17:00 122 20 101/53 98 Nasal Cannula 2.0 06/03/17 16:00 98.9 120 20 100/52 98 Nasal Cannula 2.0 06/03/17 16:00 123 15 102/54 100 Nasal Cannula 2.0 06/03/17 16:00 122 06/03/17 15:00 128 23 114/56 98 Nasal Cannula 2.0 06/03/17 14:00 120 19 110/59 100 Nasal Cannula 2.0 06/03/17 13:43 142 06/03/17 13:00 99.0 129 15 98/75 100 Nasal Cannula 2.0 06/03/17 12:00 99.0 122 19 105/65 100 Nasal Cannula 2.0 06/03/17 12:00 120 06/03/17 11:00 120 18 118/64 100 Nasal Cannula 2.0 Laboratory Tests Test 06/04/17 06:05 White Blood Count 9.9 K/UL (4.8-10.8) Red Blood Count 2.67 M/UL (4.20-5.40) L Hemoglobin 8.7 G/DL (12.0-16.0) L Hematocrit 26.8 % (37.0-47.0) L Mean Corpuscular Volume 100 FL (80-99) H Mean Corpuscular Hemoglobin 32.7 PG (27.0-31.0) H Mean Corpuscular Hemoglobin Concent 32.6 G/DL (32.0-36.0) Red Cell Distribution Width 13.3 % (11.6-14.8) Platelet Count 120 K/UL (150-450) L Mean Platelet Volume 9.2 FL (6.5-10.1) Neutrophils (%) (Auto) 75.4 % (45.0-75.0) H Lymphocytes (%) (Auto) 12.3 % (20.0-45.0) L Monocytes (%) (Auto) 11.2 % (1.0-10.0) H Eosinophils (%) (Auto) 0.6 % (0.0-3.0) Basophils (%) (Auto) 0.6 % (0.0-2.0) Sodium Level 141 MMOL/L (136-145) Potassium Level 4.2 MMOL/L (3.5-5.1) Chloride Level 109 MMOL/L (98-107) H Carbon Dioxide Level 25 MMOL/L (21-32) Anion Gap 7 (5-15) Blood Urea Nitrogen 48 mg/dL (7-18) H Creatinine 1.5 MG/DL (0.55-1.30) H Estimat Glomerular Filtration Rate mL/min (>60) Glucose Level 132 MG/DL (74-106) H Calcium Level 8.9 MG/DL (8.5-10.1) Troponin I Pending Microbiology Date/Time Source Procedure Growth Status 05/31/17 16:43 Nasal Nares MRSA Culture - Final NO METHICILLIN RESISTANT STAPH AUREUS... Complete 05/31/17 16:43 Rectum VRE Culture - Final NO VANCOMYCIN RESISTANT ENTEROCOCCUS ... Complete PHYSICAL EXAM: DERM: No open wounds. Multiple hyperpigmented spots at plantar foot that have been present for many years without recent changes NEURO: Sensation in tact to light touch VASCULAR: DP pulse palpable. PT difficult to palpate. Increased warmth at the left ankle compared to contralateral side MSK: Pain with passive and active range of motion of the left ankle. Hammertoe deformities 2-5 bilaterally. Mild bunion deformity noted bilaterally . Assessment/Plan ASSESSMENT: - Left ankle pain. No history of trauma. Xray is negative. Likely etiology is an inflammatory process such as gout which the patient has a history of PLAN: - Recommend anti inflammatory medication - Ordering uric acid levels - Minimize motion at the left ankle with using an joão wrap - Apply ice Q4 hours to left ankle Anjel Pierce DPM Jun 04, 2017 10:41
--- NOTE | 2017-06-04 10:50 | General Progress Note ---
Assessment/Plan Problem List: (1) Gastrointestinal hemorrhage ICD Codes: K92.2 - Gastrointestinal hemorrhage, unspecified SNOMED: 02177278 (2) Anemia ICD Codes: D64.9 - Anemia, unspecified SNOMED: 880440928, 874558162 (3) Supratherapeutic INR ICD Codes: R79.1 - Abnormal coagulation profile SNOMED: 140472571, 660654578 (4) Pancreatitis ICD Codes: K85.90 - Acute pancreatitis without necrosis or infection, unspecified SNOMED: 64690222 (5) GI bleed ICD Codes: K92.2 - Gastrointestinal hemorrhage, unspecified SNOMED: 64592440 (6) Leukocytosis ICD Codes: D72.829 - Elevated white blood cell count, unspecified SNOMED: 469548267, 254993485 (7) Elevated troponin ICD Codes: R74.8 - Abnormal levels of other serum enzymes SNOMED: 381248882, 102890558 Status: stable, progressing, tolerating diet Assessment/Plan ot pt diet transfuse prn gi fu cbc bmp am Subjective Allergies: Coded Allergies: No Known Allergies (Unverified , 05/31/17) All Systems: reviewed and negative except above Subjective o2nc sleepy Objective Last 24 Hour Vital Signs Date Time Temp Pulse Resp B/P (MAP) Pulse Ox O2 Delivery O2 Flow Rate FiO2 06/04/17 10:00 109 18 120/64 100 Nasal Cannula 2.0 06/04/17 09:30 118 18 124/78 100 Nasal Cannula 2.0 06/04/17 09:00 118 18 125/79 100 Nasal Cannula 2.0 06/04/17 08:30 120 18 113/59 100 Nasal Cannula 2.0 06/04/17 08:00 104 06/04/17 08:00 98.4 118 17 117/67 100 Nasal Cannula 2.0 06/04/17 07:30 110 18 92/63 100 Nasal Cannula 2.0 06/04/17 07:00 102 23 117/61 100 Nasal Cannula 2.0 06/04/17 06:00 100 23 114/64 100 Nasal Cannula 2.0 06/04/17 05:00 100 16 106/61 100 Nasal Cannula 2.0 06/04/17 04:00 99 06/04/17 04:00 98.8 99 16 107/66 100 Nasal Cannula 2.0 06/04/17 03:00 104 16 109/62 100 Nasal Cannula 2.0 06/04/17 02:00 103 18 110/64 100 Nasal Cannula 2.0 06/04/17 01:00 108 22 115/62 100 Nasal Cannula 2.0 06/04/17 00:00 98.9 104 18 113/59 100 Nasal Cannula 2.0 06/03/17 23:00 114 16 106/55 100 Nasal Cannula 2.0 06/03/17 22:30 114 17 100/59 100 Nasal Cannula 2.0 06/03/17 22:00 113 23 101/60 100 Nasal Cannula 2.0 06/03/17 21:30 114 21 106/54 100 Nasal Cannula 2.0 06/03/17 21:00 114 16 104/62 100 Nasal Cannula 2.0 06/03/17 20:00 123 06/03/17 20:00 98.8 123 18 101/55 100 Nasal Cannula 2.0 06/03/17 19:38 Nasal Cannula 2.0 28 06/03/17 19:38 100 Nasal Cannula 2.0 28 06/03/17 19:00 119 18 102/60 100 Nasal Cannula 2.0 06/03/17 18:00 121 21 98/71 98 Nasal Cannula 2.0 06/03/17 17:00 122 20 101/53 98 Nasal Cannula 2.0 06/03/17 16:00 98.9 120 20 100/52 98 Nasal Cannula 2.0 06/03/17 16:00 123 15 102/54 100 Nasal Cannula 2.0 06/03/17 16:00 122 06/03/17 15:00 128 23 114/56 98 Nasal Cannula 2.0 06/03/17 14:00 120 19 110/59 100 Nasal Cannula 2.0 06/03/17 13:43 142 06/03/17 13:00 99.0 129 15 98/75 100 Nasal Cannula 2.0 06/03/17 12:00 99.0 122 19 105/65 100 Nasal Cannula 2.0 06/03/17 12:00 120 06/03/17 11:00 120 18 118/64 100 Nasal Cannula 2.0 Intake and Output 06/04/17 06/05/17 19:00 07:00 Intake Total 250 ml Output Total 150 ml Balance 100 ml Intake Oral 250 ml Output Urine Total 150 ml # Bowel Movements 1 Laboratory Tests 10/14/17 06:05: White Blood Count 9.9, Red Blood Count 2.67L, Hemoglobin 8.7L, Hematocrit 26.8L , Mean Corpuscular Volume 100H, Mean Corpuscular Hemoglobin 32.7H, Mean Corpuscular Hemoglobin Concent 32.6, Red Cell Distribution Width 13.3, Platelet Count 120L, Mean Platelet Volume 9.2, Neutrophils (%) (Auto) 75.4H, Lymphocytes (%) (Auto) 12.3L, Monocytes (%) (Auto) 11.2H, Eosinophils (%) (Auto) 0.6, Basophils (%) (Auto) 0.6, Sodium Level 141, Potassium Level 4.2, Chloride Level 109H, Carbon Dioxide Level 25, Anion Gap 7, Blood Urea Nitrogen 48H, Creatinine 1.5H, Estimat Glomerular Filtration Rate , Glucose Level 132H, Calcium Level 8.9 , Troponin I [Pending] Height (Feet): 5 Height (Inches): 0.00 Weight (Pounds): 165 General Appearance: lethargic EENT: normal ENT inspection Neck: normal alignment Cardiovascular: normal peripheral pulses, normal rate, regular rhythm Respiratory/Chest: chest wall non-tender, lungs clear, normal breath sounds Abdomen: normal bowel sounds, non tender, soft Extremities: normal inspection Edema: no edema noted Arm (L), no edema noted Arm (R), no edema noted Leg (L), no edema noted Leg (R), no edema noted Pedal (L), no edema noted Pedal (R), no edema noted Generalized Neurologic: motor weakness Skin: normal pigmentation, warm/dry DYAN DAVID Jun 04, 2017 10:50
--- NOTE | 2017-06-04 11:18 | General Progress Note ---
Assessment/Plan Status: stable - from renal stand Status Narrative on amiodarone drip Assessment/Plan Acute renal failure- ? Pre renal ( GI Bleed) on top of Renal GI Bleed- Anemia CHF high Lipase Plan: Barron- by urologist GI eval Transfusion- Echo- 60% Ej Fx LORI kidney- small kidneys continue monitor renal parameters and H&H Subjective ROS Limited/Unobtainable: No Constitutional: Reports: malaise Allergies: Coded Allergies: No Known Allergies (Unverified , 05/31/17) Objective Last 24 Hour Vital Signs Date Time Temp Pulse Resp B/P (MAP) Pulse Ox O2 Delivery O2 Flow Rate FiO2 06/04/17 10:00 109 18 120/64 100 Nasal Cannula 2.0 06/04/17 09:30 118 18 124/78 100 Nasal Cannula 2.0 06/04/17 09:00 118 18 125/79 100 Nasal Cannula 2.0 06/04/17 08:30 120 18 113/59 100 Nasal Cannula 2.0 06/04/17 08:00 104 06/04/17 08:00 98.4 118 17 117/67 100 Nasal Cannula 2.0 06/04/17 07:30 110 18 92/63 100 Nasal Cannula 2.0 06/04/17 07:00 102 23 117/61 100 Nasal Cannula 2.0 06/04/17 06:00 100 23 114/64 100 Nasal Cannula 2.0 06/04/17 05:00 100 16 106/61 100 Nasal Cannula 2.0 06/04/17 04:00 99 06/04/17 04:00 98.8 99 16 107/66 100 Nasal Cannula 2.0 06/04/17 03:00 104 16 109/62 100 Nasal Cannula 2.0 06/04/17 02:00 103 18 110/64 100 Nasal Cannula 2.0 06/04/17 01:00 108 22 115/62 100 Nasal Cannula 2.0 06/04/17 00:00 98.9 104 18 113/59 100 Nasal Cannula 2.0 06/03/17 23:00 114 16 106/55 100 Nasal Cannula 2.0 06/03/17 22:30 114 17 100/59 100 Nasal Cannula 2.0 06/03/17 22:00 113 23 101/60 100 Nasal Cannula 2.0 06/03/17 21:30 114 21 106/54 100 Nasal Cannula 2.0 06/03/17 21:00 114 16 104/62 100 Nasal Cannula 2.0 06/03/17 20:00 123 06/03/17 20:00 98.8 123 18 101/55 100 Nasal Cannula 2.0 06/03/17 19:38 Nasal Cannula 2.0 28 06/03/17 19:38 100 Nasal Cannula 2.0 28 06/03/17 19:00 119 18 102/60 100 Nasal Cannula 2.0 06/03/17 18:00 121 21 98/71 98 Nasal Cannula 2.0 06/03/17 17:00 122 20 101/53 98 Nasal Cannula 2.0 06/03/17 16:00 98.9 120 20 100/52 98 Nasal Cannula 2.0 06/03/17 16:00 123 15 102/54 100 Nasal Cannula 2.0 06/03/17 16:00 122 06/03/17 15:00 128 23 114/56 98 Nasal Cannula 2.0 06/03/17 14:00 120 19 110/59 100 Nasal Cannula 2.0 06/03/17 13:43 142 06/03/17 13:00 99.0 129 15 98/75 100 Nasal Cannula 2.0 06/03/17 12:00 99.0 122 19 105/65 100 Nasal Cannula 2.0 06/03/17 12:00 120 Intake and Output 06/04/17 06/05/17 19:00 07:00 Intake Total 250 ml Output Total 150 ml Balance 100 ml Intake Oral 250 ml Output Urine Total 150 ml # Bowel Movements 1 Laboratory Tests 06/04/17 06:05: White Blood Count 9.9, Red Blood Count 2.67L, Hemoglobin 8.7L, Hematocrit 26.8L , Mean Corpuscular Volume 100H, Mean Corpuscular Hemoglobin 32.7H, Mean Corpuscular Hemoglobin Concent 32.6, Red Cell Distribution Width 13.3, Platelet Count 120L, Mean Platelet Volume 9.2, Neutrophils (%) (Auto) 75.4H, Lymphocytes (%) (Auto) 12.3L, Monocytes (%) (Auto) 11.2H, Eosinophils (%) (Auto) 0.6, Basophils (%) (Auto) 0.6, Sodium Level 141, Potassium Level 4.2, Chloride Level 109H, Carbon Dioxide Level 25, Anion Gap 7, Blood Urea Nitrogen 48H, Creatinine 1.5H, Estimat Glomerular Filtration Rate , Glucose Level 132H, Calcium Level 8.9 , Troponin I 0.198H Height (Feet): 5 Height (Inches): 0.00 Weight (Pounds): 165 General Appearance: no apparent distress Cardiovascular: arrhythmia Objective no other changes ALOK VILLALTA Jun 04, 2017 11:18
--- NOTE | 2017-06-04 11:18 | General Progress Note ---
Assessment/Plan Problem List: (1) Gastrointestinal hemorrhage ICD Codes: K92.2 - Gastrointestinal hemorrhage, unspecified SNOMED: 05100511 (2) Anemia ICD Codes: D64.9 - Anemia, unspecified SNOMED: 467694491, 998632619 (3) Elevated troponin ICD Codes: R74.8 - Abnormal levels of other serum enzymes SNOMED: 969720961, [id number] Assessment/Plan difficult case recurrent bleed now off anticoagulation monitor H&H transfuse PRN will d/w cardiology regarding clearance for possible GI procedures KUB Subjective ROS Limited/Unobtainable: No Allergies: Coded Allergies: No Known Allergies (Unverified , 05/31/17) Subjective had maroon colored stools per nurses Objective Last 24 Hour Vital Signs Date Time Temp Pulse Resp B/P (MAP) Pulse Ox O2 Delivery O2 Flow Rate FiO2 06/04/17 10:00 109 18 120/64 100 Nasal Cannula 2.0 06/04/17 09:30 118 18 124/78 100 Nasal Cannula 2.0 06/04/17 09:00 118 18 125/79 100 Nasal Cannula 2.0 06/04/17 08:30 120 18 113/59 100 Nasal Cannula 2.0 06/04/17 08:00 104 06/04/17 08:00 98.4 118 17 117/67 100 Nasal Cannula 2.0 06/04/17 07:30 110 18 92/63 100 Nasal Cannula 2.0 06/04/17 07:00 102 23 117/61 100 Nasal Cannula 2.0 06/04/17 06:00 100 23 114/64 100 Nasal Cannula 2.0 06/04/17 05:00 100 16 106/61 100 Nasal Cannula 2.0 06/04/17 04:00 99 06/04/17 04:00 98.8 99 16 107/66 100 Nasal Cannula 2.0 06/04/17 03:00 104 16 109/62 100 Nasal Cannula 2.0 06/04/17 02:00 103 18 110/64 100 Nasal Cannula 2.0 06/04/17 01:00 108 22 115/62 100 Nasal Cannula 2.0 06/04/17 00:00 98.9 104 18 113/59 100 Nasal Cannula 2.0 06/03/17 23:00 114 16 106/55 100 Nasal Cannula 2.0 06/03/17 22:30 114 17 100/59 100 Nasal Cannula 2.0 06/03/17 22:00 113 23 101/60 100 Nasal Cannula 2.0 06/03/17 21:30 114 21 106/54 100 Nasal Cannula 2.0 06/03/17 21:00 114 16 104/62 100 Nasal Cannula 2.0 06/03/17 20:00 123 06/03/17 20:00 98.8 123 18 101/55 100 Nasal Cannula 2.0 06/03/17 19:38 Nasal Cannula 2.0 28 06/03/17 19:38 100 Nasal Cannula 2.0 28 06/03/17 19:00 119 18 102/60 100 Nasal Cannula 2.0 06/03/17 18:00 121 21 98/71 98 Nasal Cannula 2.0 06/03/17 17:00 122 20 101/53 98 Nasal Cannula 2.0 06/03/17 16:00 98.9 120 20 100/52 98 Nasal Cannula 2.0 06/03/17 16:00 123 15 102/54 100 Nasal Cannula 2.0 06/03/17 16:00 122 06/03/17 15:00 128 23 114/56 98 Nasal Cannula 2.0 06/03/17 14:00 120 19 110/59 100 Nasal Cannula 2.0 06/03/17 13:43 142 06/03/17 13:00 99.0 129 15 98/75 100 Nasal Cannula 2.0 06/03/17 12:00 99.0 122 19 105/65 100 Nasal Cannula 2.0 06/03/17 12:00 120 Intake and Output 06/04/17 06/05/17 19:00 07:00 Intake Total 250 ml Output Total 150 ml Balance 100 ml Intake Oral 250 ml Output Urine Total 150 ml # Bowel Movements 1 Laboratory Tests 06/04/17 06:05: White Blood Count 9.9, Red Blood Count 2.67L, Hemoglobin 8.7L, Hematocrit 26.8L , Mean Corpuscular Volume 100H, Mean Corpuscular Hemoglobin 32.7H, Mean Corpuscular Hemoglobin Concent 32.6, Red Cell Distribution Width 13.3, Platelet Count 120L, Mean Platelet Volume 9.2, Neutrophils (%) (Auto) 75.4H, Lymphocytes (%) (Auto) 12.3L, Monocytes (%) (Auto) 11.2H, Eosinophils (%) (Auto) 0.6, Basophils (%) (Auto) 0.6, Sodium Level 141, Potassium Level 4.2, Chloride Level 109H, Carbon Dioxide Level 25, Anion Gap 7, Blood Urea Nitrogen 48H, Creatinine 1.5H, Estimat Glomerular Filtration Rate , Glucose Level 132H, Calcium Level 8.9 , Troponin I [Pending] Height (Feet): 5 Height (Inches): 0.00 Weight (Pounds): 165 General Appearance: no apparent distress EENT: normal ENT inspection Neck: supple Cardiovascular: normal rate Respiratory/Chest: decreased breath sounds Abdomen: soft, hypoactive bowel sounds, distended Extremities: non-tender WAYNE LANGLEY Jun 04, 2017 11:18
--- NOTE | 2017-06-04 11:39 | Cardiology Progress Note ---
Assessment/Plan Assessment/Plan 1. Elevated troponin level, ? demand-ischemia, no STT changes on the ECG, in process of being transferred to [facility] for cardiac cath. 2. Paroxysmal atrial fibrillation, converted to a.fib on amiodarone gtt, digoxin 0.5mg IV times one dose. May add B-blockers if BP allows ( has been mostly hypotensive) 3. GI bleed. Subjective Subjective Atrial fibrillation with RVR. Maroon stool is reported. Objective Last 24 Hour Vital Signs Date Time Temp Pulse Resp B/P (MAP) Pulse Ox O2 Delivery O2 Flow Rate FiO2 06/04/17 10:00 109 18 120/64 100 Nasal Cannula 2.0 06/04/17 09:30 118 18 124/78 100 Nasal Cannula 2.0 06/04/17 09:00 118 18 125/79 100 Nasal Cannula 2.0 06/04/17 08:30 120 18 113/59 100 Nasal Cannula 2.0 06/04/17 08:00 104 06/04/17 08:00 98.4 118 17 117/67 100 Nasal Cannula 2.0 06/04/17 07:30 110 18 92/63 100 Nasal Cannula 2.0 06/04/17 07:00 102 23 117/61 100 Nasal Cannula 2.0 06/04/17 06:00 100 23 114/64 100 Nasal Cannula 2.0 06/04/17 05:00 100 16 106/61 100 Nasal Cannula 2.0 06/04/17 04:00 99 06/04/17 04:00 98.8 99 16 107/66 100 Nasal Cannula 2.0 06/04/17 03:00 104 16 109/62 100 Nasal Cannula 2.0 06/04/17 02:00 103 18 110/64 100 Nasal Cannula 2.0 06/04/17 01:00 108 22 115/62 100 Nasal Cannula 2.0 06/04/17 00:00 98.9 104 18 113/59 100 Nasal Cannula 2.0 06/03/17 23:00 114 16 106/55 100 Nasal Cannula 2.0 06/03/17 22:30 114 17 100/59 100 Nasal Cannula 2.0 06/03/17 22:00 113 23 101/60 100 Nasal Cannula 2.0 06/03/17 21:30 114 21 106/54 100 Nasal Cannula 2.0 06/03/17 21:00 114 16 104/62 100 Nasal Cannula 2.0 06/03/17 20:00 123 06/03/17 20:00 98.8 123 18 101/55 100 Nasal Cannula 2.0 06/03/17 19:38 Nasal Cannula 2.0 28 06/03/17 19:38 100 Nasal Cannula 2.0 28 06/03/17 19:00 119 18 102/60 100 Nasal Cannula 2.0 06/03/17 18:00 121 21 98/71 98 Nasal Cannula 2.0 06/03/17 17:00 122 20 101/53 98 Nasal Cannula 2.0 06/03/17 16:00 98.9 120 20 100/52 98 Nasal Cannula 2.0 06/03/17 16:00 123 15 102/54 100 Nasal Cannula 2.0 06/03/17 16:00 122 06/03/17 15:00 128 23 114/56 98 Nasal Cannula 2.0 06/03/17 14:00 120 19 110/59 100 Nasal Cannula 2.0 06/03/17 13:43 142 06/03/17 13:00 99.0 129 15 98/75 100 Nasal Cannula 2.0 06/03/17 12:00 99.0 122 19 105/65 100 Nasal Cannula 2.0 06/03/17 12:00 120 Intake and Output 06/04/17 06/05/17 19:00 07:00 Intake Total 250 ml Output Total 150 ml Balance 100 ml Intake Oral 250 ml Output Urine Total 150 ml # Bowel Movements 1 2D Echo: LVEF 60%, MIld LAE, Mild AR, Grade I LVDD Laboratory Tests Test 06/04/17 06:05 White Blood Count 9.9 K/UL (4.8-10.8) Red Blood Count 2.67 M/UL (4.20-5.40) L Hemoglobin 8.7 G/DL (12.0-16.0) L Hematocrit 26.8 % (37.0-47.0) L Mean Corpuscular Volume 100 FL (80-99) H Mean Corpuscular Hemoglobin 32.7 PG (27.0-31.0) H Mean Corpuscular Hemoglobin Concent 32.6 G/DL (32.0-36.0) Red Cell Distribution Width 13.3 % (11.6-14.8) Platelet Count 120 K/UL (150-450) L Mean Platelet Volume 9.2 FL (6.5-10.1) Neutrophils (%) (Auto) 75.4 % (45.0-75.0) H Lymphocytes (%) (Auto) 12.3 % (20.0-45.0) L Monocytes (%) (Auto) 11.2 % (1.0-10.0) H Eosinophils (%) (Auto) 0.6 % (0.0-3.0) Basophils (%) (Auto) 0.6 % (0.0-2.0) Sodium Level 141 MMOL/L (136-145) Potassium Level 4.2 MMOL/L (3.5-5.1) Chloride Level 109 MMOL/L (98-107) H Carbon Dioxide Level 25 MMOL/L (21-32) Anion Gap 7 (5-15) Blood Urea Nitrogen 48 mg/dL (7-18) H Creatinine 1.5 MG/DL (0.55-1.30) H Estimat Glomerular Filtration Rate mL/min (>60) Glucose Level 132 MG/DL (74-106) H Calcium Level 8.9 MG/DL (8.5-10.1) Troponin I 0.198 ng/mL (0.000-0.056) Objective GENERAL: No acute distress. HEENT: PERRLA, EOMI, anicteric PULMONARY: Decreased breath sounds both bases CARDIOVASCULAR: Irregularly irregular, normal S1S2 No murmurs. gallops or rubs. ABDOMEN: Soft, nontender, and nondistended, no HSM, + BS EXTREMITIES: There is 1+ edema B/L ELEONORA SILVA Jun 04, 2017 11:39
[2017-06-04] MEDS ORDERED: Amiodarone 200mg tab ORAL SCH ×2 (13:00→22:00)
[2017-06-04] MEDS ORDERED: Digoxin 0.5mg/2ml Inj IVP ONE (13:00)
--- NOTE | 2017-06-04 14:58 | Cardiac Electrophysiology PN ---
Subjective Subjective EP consult dictated. [id number] 1. Atrial fib. Change IV amiodarone to po 400 bid.Start Lopressor 25 bid and check Dig level in am. 2. S/P Medtronic pacer 2002 and gen change 2012. Reinterrogation pending. 3. Troponin leak likely due to atrial fib with RVR and renal failure. Objective Last 24 Hour Vital Signs Date Time Temp Pulse Resp B/P (MAP) Pulse Ox O2 Delivery O2 Flow Rate FiO2 06/04/17 14:00 103 18 111/65 100 Nasal Cannula 2.0 06/04/17 13:30 106 18 127/62 100 Nasal Cannula 2.0 06/04/17 13:30 133 06/04/17 13:00 103 18 111/65 100 Nasal Cannula 2.0 06/04/17 12:30 112 18 117/69 100 Nasal Cannula 2.0 06/04/17 12:00 115 06/04/17 12:00 98.4 110 18 117/68 100 Nasal Cannula 2.0 06/04/17 11:30 110 18 117/66 100 Nasal Cannula 2.0 06/04/17 11:00 116 18 118/60 100 Nasal Cannula 2.0 06/04/17 10:40 98.4 06/04/17 10:30 119 18 114/61 100 Nasal Cannula 2.0 06/04/17 10:00 109 18 120/64 100 Nasal Cannula 2.0 06/04/17 09:30 118 18 124/78 100 Nasal Cannula 2.0 06/04/17 09:00 118 18 125/79 100 Nasal Cannula 2.0 06/04/17 08:30 120 18 113/59 100 Nasal Cannula 2.0 06/04/17 08:00 104 06/04/17 08:00 98.4 118 17 117/67 100 Nasal Cannula 2.0 06/04/17 07:30 110 18 92/63 100 Nasal Cannula 2.0 06/04/17 07:00 102 23 117/61 100 Nasal Cannula 2.0 06/04/17 06:00 100 23 114/64 100 Nasal Cannula 2.0 06/04/17 05:00 100 16 106/61 100 Nasal Cannula 2.0 06/04/17 04:00 99 06/04/17 04:00 98.8 99 16 107/66 100 Nasal Cannula 2.0 06/04/17 03:00 104 16 109/62 100 Nasal Cannula 2.0 06/04/17 02:00 103 18 110/64 100 Nasal Cannula 2.0 06/04/17 01:00 108 22 115/62 100 Nasal Cannula 2.0 06/04/17 00:00 98.9 104 18 113/59 100 Nasal Cannula 2.0 06/03/17 23:00 114 16 106/55 100 Nasal Cannula 2.0 06/03/17 22:30 114 17 100/59 100 Nasal Cannula 2.0 06/03/17 22:00 113 23 101/60 100 Nasal Cannula 2.0 06/03/17 21:30 114 21 106/54 100 Nasal Cannula 2.0 06/03/17 21:00 114 16 104/62 100 Nasal Cannula 2.0 06/03/17 20:00 123 06/03/17 20:00 98.8 123 18 101/55 100 Nasal Cannula 2.0 06/03/17 19:38 Nasal Cannula 2.0 28 06/03/17 19:38 100 Nasal Cannula 2.0 28 06/03/17 19:00 119 18 102/60 100 Nasal Cannula 2.0 06/03/17 18:00 121 21 98/71 98 Nasal Cannula 2.0 06/03/17 17:00 122 20 101/53 98 Nasal Cannula 2.0 06/03/17 16:00 98.9 120 20 100/52 98 Nasal Cannula 2.0 06/03/17 16:00 123 15 102/54 100 Nasal Cannula 2.0 06/03/17 16:00 122 06/03/17 15:00 128 23 114/56 98 Nasal Cannula 2.0 Intake and Output 06/04/17 06/05/17 19:00 07:00 Intake Total 899.96 ml Output Total 350 ml Balance 549.96 ml Intake Oral 500 ml IV Total 399.96 ml Output Urine Total 350 ml # Bowel Movements 1 Laboratory Tests Test 06/04/17 06:05 White Blood Count 9.9 K/UL (4.8-10.8) Red Blood Count 2.67 M/UL (4.20-5.40) L Hemoglobin 8.7 G/DL (12.0-16.0) L Hematocrit 26.8 % (37.0-47.0) L Mean Corpuscular Volume 100 FL (80-99) H Mean Corpuscular Hemoglobin 32.7 PG (27.0-31.0) H Mean Corpuscular Hemoglobin Concent 32.6 G/DL (32.0-36.0) Red Cell Distribution Width 13.3 % (11.6-14.8) Platelet Count 120 K/UL (150-450) L Mean Platelet Volume 9.2 FL (6.5-10.1) Neutrophils (%) (Auto) 75.4 % (45.0-75.0) H Lymphocytes (%) (Auto) 12.3 % (20.0-45.0) L Monocytes (%) (Auto) 11.2 % (1.0-10.0) H Eosinophils (%) (Auto) 0.6 % (0.0-3.0) Basophils (%) (Auto) 0.6 % (0.0-2.0) Sodium Level 141 MMOL/L (136-145) Potassium Level 4.2 MMOL/L (3.5-5.1) Chloride Level 109 MMOL/L (98-107) H Carbon Dioxide Level 25 MMOL/L (21-32) Anion Gap 7 (5-15) Blood Urea Nitrogen 48 mg/dL (7-18) H Creatinine 1.5 MG/DL (0.55-1.30) H Estimat Glomerular Filtration Rate mL/min (>60) Glucose Level 132 MG/DL (74-106) H Uric Acid 8.8 MG/DL (2.6-7.2) H Calcium Level 8.9 MG/DL (8.5-10.1) Troponin I 0.198 ng/mL (0.000-0.056) ELEONORA BLAND Jun 04, 2017 14:58
[2017-06-04] MEDS ORDERED: D5W 275ml ONE (16:16)
[2017-06-04] MEDS ORDERED: 1/2 NS 1000ml IV ONE (18:46)
[2017-06-04] MEDS: Metoprolol 25mg tab ORAL SCH (21:03)
[2017-06-04] MEDS: Amiodarone 200mg tab ORAL SCH (21:03)
--- NOTE | 2017-06-04 21:25 | General Progress Note ---
Assessment/Plan Assessment/Plan ASSESSMENT AND RECOMMENDATIONS: # Anemia 2/2 b12 deficiency. The patient is on b12 supplement. # Anemia secondary to gastrointestinal bleed. GI service following and pt is to receive egd/colo when stable. Continue to closely monitor. #. Macrocytosis potentially secondary to liver disease. Continue to monitor. #. Supratherapeutic INR. Vitamin K has been administered. Now normal #. Pancreatitis. Subjective ROS Limited/Unobtainable: Yes Allergies: Coded Allergies: No Known Allergies (Unverified , 05/31/17) Objective Last 24 Hour Vital Signs Date Time Temp Pulse Resp B/P (MAP) Pulse Ox O2 Delivery O2 Flow Rate FiO2 06/04/17 21:03 111 125/57 06/04/17 20:00 98.9 128 29 125/57 100 Nasal Cannula 2.0 06/04/17 20:00 128 06/04/17 19:30 117/66 06/04/17 19:00 116 21 132/74 100 Nasal Cannula 2.0 06/04/17 18:00 111 21 128/71 100 Nasal Cannula 2.0 06/04/17 17:00 114 21 117/63 100 Nasal Cannula 2.0 06/04/17 16:00 98.5 107 20 123/68 100 Nasal Cannula 2.0 06/04/17 16:00 107 06/04/17 15:30 107 21 121/63 100 Nasal Cannula 2.0 06/04/17 15:00 107 20 128/65 100 Nasal Cannula 2.0 06/04/17 14:30 119 18 136/62 100 Nasal Cannula 2.0 06/04/17 14:00 103 18 111/65 100 Nasal Cannula 2.0 06/04/17 13:30 106 18 127/62 100 Nasal Cannula 2.0 06/04/17 13:30 133 06/04/17 13:00 103 18 111/65 100 Nasal Cannula 2.0 06/04/17 12:30 112 18 117/69 100 Nasal Cannula 2.0 06/04/17 12:00 115 06/04/17 12:00 98.4 110 18 117/68 100 Nasal Cannula 2.0 06/04/17 11:30 110 18 117/66 100 Nasal Cannula 2.0 06/04/17 11:00 116 18 118/60 100 Nasal Cannula 2.0 06/04/17 10:40 98.4 10/14/17 10:30 119 18 114/61 100 Nasal Cannula 2.0 06/04/17 10:00 109 18 120/64 100 Nasal Cannula 2.0 06/04/17 09:30 118 18 124/78 100 Nasal Cannula 2.0 06/04/17 09:00 118 18 125/79 100 Nasal Cannula 2.0 06/04/17 08:30 120 18 113/59 100 Nasal Cannula 2.0 06/04/17 08:00 104 06/04/17 08:00 98.4 118 17 117/67 100 Nasal Cannula 2.0 06/04/17 07:30 110 18 92/63 100 Nasal Cannula 2.0 06/04/17 07:00 102 23 117/61 100 Nasal Cannula 2.0 06/04/17 06:00 100 23 114/64 100 Nasal Cannula 2.0 06/04/17 05:00 100 16 106/61 100 Nasal Cannula 2.0 06/04/17 04:00 99 06/04/17 04:00 98.8 99 16 107/66 100 Nasal Cannula 2.0 06/04/17 03:00 104 16 109/62 100 Nasal Cannula 2.0 06/04/17 02:00 103 18 110/64 100 Nasal Cannula 2.0 06/04/17 01:00 108 22 115/62 100 Nasal Cannula 2.0 06/04/17 00:00 109 06/04/17 00:00 98.9 104 18 113/59 100 Nasal Cannula 2.0 06/03/17 23:00 114 16 106/55 100 Nasal Cannula 2.0 06/03/17 22:30 114 17 100/59 100 Nasal Cannula 2.0 06/03/17 22:00 113 23 101/60 100 Nasal Cannula 2.0 06/03/17 21:30 114 21 106/54 100 Nasal Cannula 2.0 Intake and Output 06/04/17 06/05/17 19:00 07:00 Intake Total 1724.62 ml 60 ml Output Total 1050 ml 100 ml Balance 674.62 ml -40 ml Intake Oral 1000 ml 60 ml IV Total 724.62 ml Output Urine Total 1050 ml 100 ml # Bowel Movements 2 2 Laboratory Tests 06/04/17 06:05: White Blood Count 9.9, Red Blood Count 2.67L, Hemoglobin 8.7L, Hematocrit 26.8L , Mean Corpuscular Volume 100H, Mean Corpuscular Hemoglobin 32.7H, Mean Corpuscular Hemoglobin Concent 32.6, Red Cell Distribution Width 13.3, Platelet Count 120L, Mean Platelet Volume 9.2, Neutrophils (%) (Auto) 75.4H, Lymphocytes (%) (Auto) 12.3L, Monocytes (%) (Auto) 11.2H, Eosinophils (%) (Auto) 0.6, Basophils (%) (Auto) 0.6, Sodium Level 141, Potassium Level 4.2, Chloride Level 109H, Carbon Dioxide Level 25, Anion Gap 7, Blood Urea Nitrogen 48H, Creatinine 1.5H, Estimat Glomerular Filtration Rate , Glucose Level 132H, Uric Acid 8.8H, Calcium Level 8.9, Troponin I 0.198H Height (Feet): 5 Height (Inches): 0.00 Weight (Pounds): 165 General Appearance: no apparent distress EENT: normal ENT inspection Neck: normal inspection Abdomen: normal bowel sounds Extremities: normal inspection Skin: normal pigmentation Kenny Castle Jun 04, 2017 21:25
[2017-06-05] VITALS (17 sets, daily range): BP systolic 107–129; BP diastolic 53–67
--- NOTE | 2017-06-05 03:00 | Consultation ---
DATE OF CONSULTATION: 06/04/2017 CARDIAC ELECTROPHYSIOLOGY CONSULTATION CONSULTING PHYSICIAN: Abner Corley M.D. ATTENDING PHYSICIAN: Ty Fisher M.D. REFERRING PHYSICIAN: Ty Fisher M.D. REASON FOR CONSULTATION: Evaluation of the patient's pacemaker and management of atrial fibrillation. HISTORY OF PRESENT ILLNESS: The patient is an 86-year-old lady with history of hypertension and paroxysmal atrial fibrillation, on Coumadin, as well as history of Medtronic pacemaker implantation in the past, who was brought to the emergency room for rectal bleeding. The patient also had atrial fibrillation with rapid ventricular response as well as hypotensive and coagulopathic with INR of more than 6. The patient was evaluated by Dr. Haywood from Cardiology perspective and cardiac electrophysiology consultation was obtained today for management of atrial fibrillation as well as evaluation of the patient's pacemaker. REVIEW OF SYSTEMS: Negative other than what was mentioned in the history of present illness. PAST MEDICAL HISTORY: 1. Hypertension. 2. Hyperlipidemia. 3. History of atrial fibrillation. 4. Status post Medtronic pacemaker implantation in 2002 as well as generator change in 2012. 5. History of hemorrhoids. PAST SURGICAL HISTORY: Includes hysterectomy and pacemaker implantation. ALLERGIES: She has no known drug allergies. MEDICATIONS: Include sotalol, verapamil, enalapril, Lipitor, Coumadin, and spironolactone as an outpatient. Currently on amiodarone drip. SOCIAL HISTORY: She lives at home. She does not smoke, drink alcohol, or use any illicit drugs. PHYSICAL EXAMINATION: VITAL SIGNS: Blood pressure 111/65, pulse of 103, respirations 18, and she is afebrile. HEAD AND NECK: No JVD. LUNGS: Decreased breath sounds. CARDIOVASCULAR: Irregularly irregular. S1 and S2. Tachycardic. ABDOMEN: Soft and nontender. EXTREMITIES: No pitting edema. LABORATORY DATA: White count initially was 18.6 and currently 9.9, hemoglobin 8.7, hematocrit 26.8, and platelet count 120,000. Sodium 141, potassium 4.2, BUN 48, creatinine 1.5, and glucose 132. Troponins 0.329 and 0.198. PLAN: 1. Atrial fibrillation with rapid ventricular response. The patient is protected with a cardiac pacemaker to prevent bradycardia. I will change amiodarone drip to p.o. amiodarone 400 mg p.o. 3 times daily. If her blood pressure allows, I will start the patient also on Lopressor 25 mg b.i.d. The patient also received a single dose of digoxin mg IV. We will check digoxin level in the morning. The patient is obviously off anticoagulation. 2. Status post Medtronic pacemaker in 2002 and generator change in 2012. The pacemaker will be interrogated for further evaluation. 3. Troponin leak, likely demand ischemia in the patient with atrial fibrillation as well as renal failure. The patient will be transferred to [facility] per Dr. Haywood for cardiac catheterization. 4. Gastrointestinal bleed in the setting of INR of 6, and it came down to 1.1. It is also of note that the patient's echocardiogram also showed ejection fraction of 60% to 65%. Thank you very much, Dr. Fisher, for allowing me to participate in the care of this lady. Please do not hesitate to contact me if you have any questions regarding my evaluation. Case was discussed with the ICU nurses as well as Dr. Fisher. Abner Corley M.D. DR: CLEMENT JOB#: [id number] CC:
[2017-06-05 06:53] LABS: BASOPHILS % (AUTO) 0.8 % (0.0-2.0); EOSINOPHILS % (AUTO) 1.1 % (0.0-3.0); LYMPHOCYTES % (AUTO) 10.6 % (20.0-45.0); MEAN CORPUSCULAR HEMOGLOBIN 32.8 PG (27.0-31.0); MEAN CORPUSCULAR VOLUME 99 FL (80-99); MEAN PLATELET VOLUME 9.5 FL (6.5-10.1); MONOCYTES % (AUTO) 11.9 % (1.0-10.0); NEUTROPHILS % (AUTO) 75.7 % (45.0-75.0); PLATELET COUNT 148 K/UL (150-450); RED BLOOD COUNT 2.62 M/UL (4.20-5.40); RED CELL DISTRIBUTION WIDTH 13.7 % (11.6-14.8); WHITE BLOOD COUNT 10.7 K/UL (4.8-10.8)
[2017-06-05 07:03] LABS: ANION GAP 9 (5-15); CALCIUM 8.7 MG/DL (8.5-10.1); CARBON DIOXIDE 24 MMOL/L (21-32); CHLORIDE 112 MMOL/L (98-107); CREATININE 1.5 MG/DL (0.55-1.30); POTASSIUM 4.5 MMOL/L (3.5-5.1); SODIUM 144 MMOL/L (136-145)
[2017-06-05] MEDS: Amiodarone 200mg tab ORAL SCH ×2 (08:59→20:56)
[2017-06-05] MEDS: Metoprolol 25mg tab ORAL SCH (08:59)
[2017-06-05] MEDS: Pantoprazole Inj IVP SCH ×2 (09:00→20:52)
--- NOTE | 2017-06-05 10:12 | Diagnostic Imaging Report ---
Indication: Abdominal distention Comparison: None Findings: Single supine view the abdomen is obtained. There is some gas-filled, distended small bowel loops in the abdomen. Gas is seen in the ascending and descending colon. No obvious air-fluid levels or free air on this limited supine view. Small amount of gas in the stomach. Impression: Possible ileus.
--- NOTE | 2017-06-05 10:32 | General Progress Note ---
Assessment/Plan Status: stable - from renal stand Status Narrative Cr 1.5 Assessment/Plan Acute renal failure- ? Pre renal ( GI Bleed) on top of Renal GI Bleed- Anemia CHF high Lipase Plan: Barron- by urologist GI eval Transfusion- Echo- 60% Ej Fx LORI kidney- small kidneys continue monitor renal parameters and H&H Subjective ROS Limited/Unobtainable: No Constitutional: Reports: malaise Allergies: Coded Allergies: No Known Allergies (Unverified , 05/31/17) Objective Last 24 Hour Vital Signs Date Time Temp Pulse Resp B/P (MAP) Pulse Ox O2 Delivery O2 Flow Rate FiO2 06/05/17 10:00 100 17 115/58 100 Nasal Cannula 2.0 06/05/17 09:00 108 17 129/66 99 Nasal Cannula 2.0 06/05/17 08:59 96 113/56 06/05/17 08:00 98.9 102 20 113/56 98 Nasal Cannula 2.0 06/05/17 08:00 96 06/05/17 07:00 98 18 115/56 98 Nasal Cannula 2.0 06/05/17 06:00 103 23 117/55 100 Nasal Cannula 2.0 06/05/17 05:00 98 21 117/53 100 Nasal Cannula 2.0 06/05/17 04:00 98.5 103 19 128/65 100 Nasal Cannula 2.0 06/05/17 04:00 103 06/05/17 03:00 100 21 122/54 100 Nasal Cannula 2.0 06/05/17 02:00 101 21 110/62 100 Nasal Cannula 2.0 06/05/17 01:00 94 23 121/64 100 Nasal Cannula 2.0 06/05/17 00:00 123 06/05/17 00:00 99.5 108 21 122/66 100 Nasal Cannula 2.0 06/04/17 23:00 113 23 122/66 100 Nasal Cannula 2.0 06/04/17 22:00 116 22 124/57 100 Nasal Cannula 2.0 06/04/17 21:41 Nasal Cannula 2.0 28 06/04/17 21:41 100 Nasal Cannula 2.0 28 06/04/17 21:03 111 125/57 06/04/17 21:00 122 25 122/65 100 Nasal Cannula 2.0 06/04/17 20:00 98.9 128 29 125/57 100 Nasal Cannula 2.0 06/04/17 20:00 128 06/04/17 19:30 117/66 06/04/17 19:00 116 21 132/74 100 Nasal Cannula 2.0 06/04/17 18:00 111 21 128/71 100 Nasal Cannula 2.0 06/04/17 17:00 114 21 117/63 100 Nasal Cannula 2.0 06/04/17 16:00 98.5 107 20 123/68 100 Nasal Cannula 2.0 06/04/17 16:00 107 06/04/17 15:30 107 21 121/63 100 Nasal Cannula 2.0 06/04/17 15:00 107 20 128/65 100 Nasal Cannula 2.0 06/04/17 14:30 119 18 136/62 100 Nasal Cannula 2.0 06/04/17 14:00 103 18 111/65 100 Nasal Cannula 2.0 06/04/17 13:30 106 18 127/62 100 Nasal Cannula 2.0 06/04/17 13:30 133 06/04/17 13:00 103 18 111/65 100 Nasal Cannula 2.0 06/04/17 12:30 112 18 117/69 100 Nasal Cannula 2.0 06/04/17 12:00 115 06/04/17 12:00 98.4 110 18 117/68 100 Nasal Cannula 2.0 06/04/17 11:30 110 18 117/66 100 Nasal Cannula 2.0 06/04/17 11:00 116 18 118/60 100 Nasal Cannula 2.0 06/04/17 10:40 98.4 Intake and Output 06/05/17 06/06/17 19:00 07:00 Intake Total 300 ml Output Total 150 ml Balance 150 ml Intake Oral 200 ml IV Total 100 ml Output Urine Total 150 ml Laboratory Tests 06/05/17 05:50: White Blood Count 10.7, Red Blood Count 2.62L, Hemoglobin 8.6L, Hematocrit 26.1L , Mean Corpuscular Volume 99, Mean Corpuscular Hemoglobin 32.8H, Mean Corpuscular Hemoglobin Concent 33.0, Red Cell Distribution Width 13.7, Platelet Count 148L, Mean Platelet Volume 9.5, Neutrophils (%) (Auto) 75.7H, Lymphocytes (%) (Auto) 10.6L, Monocytes (%) (Auto) 11.9H, Eosinophils (%) (Auto) 1.1, Basophils (%) (Auto) 0.8, Sodium Level 144, Potassium Level 4.5, Chloride Level 112H, Carbon Dioxide Level 24, Anion Gap 9, Blood Urea Nitrogen 37H, Creatinine 1.5H, Estimat Glomerular Filtration Rate , Glucose Level 122H, Calcium Level 8.7 , Digoxin Level 1.8 Height (Feet): 5 Height (Inches): 0.00 Weight (Pounds): 165 General Appearance: no apparent distress Cardiovascular: tachycardia, arrhythmia Respiratory/Chest: decreased breath sounds Abdomen: soft Objective no other changes ALOK VILLALTA Jun 05, 2017 10:32
--- NOTE | 2017-06-05 10:41 | General Progress Note ---
Assessment/Plan Problem List: (1) Gastrointestinal hemorrhage ICD Codes: K92.2 - Gastrointestinal hemorrhage, unspecified SNOMED: 06630450 (2) Anemia ICD Codes: D64.9 - Anemia, unspecified SNOMED: 827503611, 403951518 (3) Supratherapeutic INR ICD Codes: R79.1 - Abnormal coagulation profile SNOMED: 738140782, 496209917 (4) Pancreatitis ICD Codes: K85.90 - Acute pancreatitis without necrosis or infection, unspecified SNOMED: 84372414 (5) GI bleed ICD Codes: K92.2 - Gastrointestinal hemorrhage, unspecified SNOMED: 90230902 (6) Leukocytosis ICD Codes: D72.829 - Elevated white blood cell count, unspecified SNOMED: 355099535, 076174941 (7) Elevated troponin ICD Codes: R74.8 - Abnormal levels of other serum enzymes SNOMED: 269858302, 318898287 Status: unchanged Assessment/Plan ot pt diet transfuse prn gi fu cbc bmp am Subjective Constitutional: Reports: weakness Allergies: Coded Allergies: No Known Allergies (Unverified , 05/31/17) All Systems: reviewed and negative except above Subjective o2nc sleepy Objective Last 24 Hour Vital Signs Date Time Temp Pulse Resp B/P (MAP) Pulse Ox O2 Delivery O2 Flow Rate FiO2 06/05/17 10:00 100 17 115/58 100 Nasal Cannula 2.0 06/05/17 09:00 108 17 129/66 99 Nasal Cannula 2.0 06/05/17 08:59 96 113/56 06/05/17 08:00 98.9 102 20 113/56 98 Nasal Cannula 2.0 06/05/17 08:00 96 06/05/17 07:00 98 18 115/56 98 Nasal Cannula 2.0 06/05/17 06:00 103 23 117/55 100 Nasal Cannula 2.0 06/05/17 05:00 98 21 117/53 100 Nasal Cannula 2.0 06/05/17 04:00 98.5 103 19 128/65 100 Nasal Cannula 2.0 06/05/17 04:00 103 06/05/17 03:00 100 21 122/54 100 Nasal Cannula 2.0 06/05/17 02:00 101 21 110/62 100 Nasal Cannula 2.0 06/05/17 01:00 94 23 121/64 100 Nasal Cannula 2.0 06/05/17 00:00 123 06/05/17 00:00 99.5 108 21 122/66 100 Nasal Cannula 2.0 06/04/17 23:00 113 23 122/66 100 Nasal Cannula 2.0 06/04/17 22:00 116 22 124/57 100 Nasal Cannula 2.0 06/04/17 21:41 Nasal Cannula 2.0 28 06/04/17 21:41 100 Nasal Cannula 2.0 28 06/04/17 21:03 111 125/57 06/04/17 21:00 122 25 122/65 100 Nasal Cannula 2.0 06/04/17 20:00 98.9 128 29 125/57 100 Nasal Cannula 2.0 06/04/17 20:00 128 06/04/17 19:30 117/66 06/04/17 19:00 116 21 132/74 100 Nasal Cannula 2.0 06/04/17 18:00 111 21 128/71 100 Nasal Cannula 2.0 06/04/17 17:00 114 21 117/63 100 Nasal Cannula 2.0 06/04/17 16:00 98.5 107 20 123/68 100 Nasal Cannula 2.0 06/04/17 16:00 107 06/04/17 15:30 107 21 121/63 100 Nasal Cannula 2.0 06/04/17 15:00 107 20 128/65 100 Nasal Cannula 2.0 06/04/17 14:30 119 18 136/62 100 Nasal Cannula 2.0 06/04/17 14:00 103 18 111/65 100 Nasal Cannula 2.0 06/04/17 13:30 106 18 127/62 100 Nasal Cannula 2.0 06/04/17 13:30 133 06/04/17 13:00 103 18 111/65 100 Nasal Cannula 2.0 06/04/17 12:30 112 18 117/69 100 Nasal Cannula 2.0 06/04/17 12:00 115 06/04/17 12:00 98.4 110 18 117/68 100 Nasal Cannula 2.0 06/04/17 11:30 110 18 117/66 100 Nasal Cannula 2.0 06/04/17 11:00 116 18 118/60 100 Nasal Cannula 2.0 Intake and Output 06/05/17 06/06/17 19:00 07:00 Intake Total 300 ml Output Total 150 ml Balance 150 ml Intake Oral 200 ml IV Total 100 ml Output Urine Total 150 ml Laboratory Tests 06/05/17 05:50: White Blood Count 10.7, Red Blood Count 2.62L, Hemoglobin 8.6L, Hematocrit 26.1L , Mean Corpuscular Volume 99, Mean Corpuscular Hemoglobin 32.8H, Mean Corpuscular Hemoglobin Concent 33.0, Red Cell Distribution Width 13.7, Platelet Count 148L, Mean Platelet Volume 9.5, Neutrophils (%) (Auto) 75.7H, Lymphocytes (%) (Auto) 10.6L, Monocytes (%) (Auto) 11.9H, Eosinophils (%) (Auto) 1.1, Basophils (%) (Auto) 0.8, Sodium Level 144, Potassium Level 4.5, Chloride Level 112H, Carbon Dioxide Level 24, Anion Gap 9, Blood Urea Nitrogen 37H, Creatinine 1.5H, Estimat Glomerular Filtration Rate , Glucose Level 122H, Calcium Level 8.7 , Digoxin Level 1.8 Height (Feet): 5 Height (Inches): 0.00 Weight (Pounds): 165 General Appearance: lethargic EENT: normal ENT inspection Neck: normal alignment Cardiovascular: normal peripheral pulses, normal rate, regular rhythm Respiratory/Chest: chest wall non-tender, lungs clear, normal breath sounds Abdomen: normal bowel sounds, non tender, soft Extremities: normal inspection Edema: no edema noted Arm (L), no edema noted Arm (R), no edema noted Leg (L), no edema noted Leg (R), no edema noted Pedal (L), no edema noted Pedal (R), no edema noted Generalized Neurologic: motor weakness Skin: normal pigmentation, warm/dry DYAN DAVID Jun 05, 2017 10:41
--- NOTE | 2017-06-05 12:56 | Consultation ---
History of Present Illness General Date patient seen: Jun 05, 2017 Chief Complaint: Referring physician: Present Illness Allergies: Coded Allergies: No Known Allergies (Unverified , 05/31/17) Medication History Scheduled Atorvastatin Calcium* (Atorvastatin Calcium*), 40 MG ORAL BEDTIME, (Reported) Enalapril Maleate* (Enalapril Maleate*), 20 MG ORAL DAILY, (Reported) Sotalol Hcl (Sotalol*), 80 MG ORAL BID, (Reported) Torsemide* (Demadex*), 60 MG ORAL DAILY, (Reported) Verapamil Hcl* (Calan Sr*), 360 MG ORAL DAILY, (Reported) Warfarin Sod* (Coumadin*), 5 MG ORAL DAILY, (Reported) [Spironolactone], 25 MG ORAL DAILY, (Reported) Scheduled PRN Acetaminophen* (Tylenol Extra Strength*), 650 MG ORAL Q8H PRN for Prn Headache/ Temp > 101, (Reported) Patient History Healthcare decision maker N Resuscitation status Advanced Directive on File Physical Exam Last 24 Hour Vital Signs Date Time Temp Pulse Resp B/P (MAP) Pulse Ox O2 Delivery O2 Flow Rate FiO2 06/05/17 12:00 107 06/05/17 11:00 112 18 128/67 100 Nasal Cannula 2.0 06/05/17 10:00 100 17 115/58 100 Nasal Cannula 2.0 06/05/17 09:00 108 17 129/66 99 Nasal Cannula 2.0 06/05/17 08:59 96 113/56 06/05/17 08:00 98.9 102 20 113/56 98 Nasal Cannula 2.0 06/05/17 08:00 96 06/05/17 07:00 98 18 115/56 98 Nasal Cannula 2.0 06/05/17 06:00 103 23 117/55 100 Nasal Cannula 2.0 06/05/17 05:00 98 21 117/53 100 Nasal Cannula 2.0 06/05/17 04:00 98.5 103 19 128/65 100 Nasal Cannula 2.0 06/05/17 04:00 103 06/05/17 03:00 100 21 122/54 100 Nasal Cannula 2.0 06/05/17 02:00 101 21 110/62 100 Nasal Cannula 2.0 06/05/17 01:00 94 23 121/64 100 Nasal Cannula 2.0 06/05/17 00:00 123 06/05/17 00:00 99.5 108 21 122/66 100 Nasal Cannula 2.0 06/04/17 23:00 113 23 122/66 100 Nasal Cannula 2.0 06/04/17 22:00 116 22 124/57 100 Nasal Cannula 2.0 06/04/17 21:41 Nasal Cannula 2.0 28 06/04/17 21:41 100 Nasal Cannula 2.0 28 06/04/17 21:03 111 125/57 06/04/17 21:00 122 25 122/65 100 Nasal Cannula 2.0 06/04/17 20:00 98.9 128 29 125/57 100 Nasal Cannula 2.0 06/04/17 20:00 128 06/04/17 19:30 117/66 06/04/17 19:00 116 21 132/74 100 Nasal Cannula 2.0 06/04/17 18:00 111 21 128/71 100 Nasal Cannula 2.0 06/04/17 17:00 114 21 117/63 100 Nasal Cannula 2.0 06/04/17 16:00 98.5 107 20 123/68 100 Nasal Cannula 2.0 06/04/17 16:00 107 06/04/17 15:30 107 21 121/63 100 Nasal Cannula 2.0 06/04/17 15:00 107 20 128/65 100 Nasal Cannula 2.0 06/04/17 14:30 119 18 136/62 100 Nasal Cannula 2.0 06/04/17 14:00 103 18 111/65 100 Nasal Cannula 2.0 06/04/17 13:30 106 18 127/62 100 Nasal Cannula 2.0 06/04/17 13:30 133 06/04/17 13:00 103 18 111/65 100 Nasal Cannula 2.0 Intake and Output 06/05/17 06/06/17 19:00 07:00 Intake Total 450 ml Output Total 300 ml Balance 150 ml Intake Oral 200 ml IV Total 250 ml Output Urine Total 300 ml Laboratory Tests Test 06/05/17 05:50 White Blood Count 10.7 K/UL (4.8-10.8) Red Blood Count 2.62 M/UL (4.20-5.40) L Hemoglobin 8.6 G/DL (12.0-16.0) L Hematocrit 26.1 % (37.0-47.0) L Mean Corpuscular Volume 99 FL (80-99) Mean Corpuscular Hemoglobin 32.8 PG (27.0-31.0) H Mean Corpuscular Hemoglobin Concent 33.0 G/DL (32.0-36.0) Red Cell Distribution Width 13.7 % (11.6-14.8) Platelet Count 148 K/UL (150-450) L Mean Platelet Volume 9.5 FL (6.5-10.1) Neutrophils (%) (Auto) 75.7 % (45.0-75.0) H Lymphocytes (%) (Auto) 10.6 % (20.0-45.0) L Monocytes (%) (Auto) 11.9 % (1.0-10.0) H Eosinophils (%) (Auto) 1.1 % (0.0-3.0) Basophils (%) (Auto) 0.8 % (0.0-2.0) Sodium Level 144 MMOL/L (136-145) Potassium Level 4.5 MMOL/L (3.5-5.1) Chloride Level 112 MMOL/L (98-107) H Carbon Dioxide Level 24 MMOL/L (21-32) Anion Gap 9 (5-15) Blood Urea Nitrogen 37 mg/dL (7-18) H Creatinine 1.5 MG/DL (0.55-1.30) H Estimat Glomerular Filtration Rate mL/min (>60) Glucose Level 122 MG/DL (74-106) H Calcium Level 8.7 MG/DL (8.5-10.1) Digoxin Level 1.8 NG/ML (0.9-2.0) Height (Feet): 5 Height (Inches): 0.00 Weight (Pounds): 165 Medications Current Medications Medications (Trade) Dose Ordered Sig/Marck Route PRN Reason Start Time Stop Time Status Last Admin Dose Admin Acetaminophen (Tylenol) 650 mg Q4H PRN ORAL Mild Pain/Temp > 100.5 06/03/17 21:15 07/03/17 21:14 06/05/17 09:00 Amiodarone HCl (Cordarone) 400 mg EVERY 12 HOURS ORAL 06/04/17 21:00 07/04/17 21:59 06/05/17 08:59 Metoprolol Tartrate (Lopressor) 25 mg Q12HR ORAL 06/04/17 21:00 07/04/17 20:59 06/05/17 08:59 Norepinephrine Bitartrate 4 mg/ Dextrose 250 ml @ 0 mls/hr Q24H IV 05/31/17 19:30 06/30/17 19:29 05/31/17 18:58 Pantoprazole (Protonix) 40 mg EVERY 12 HOURS IVP 06/01/17 21:00 07/01/17 20:59 06/05/17 09:00 Sodium Chloride 1,000 ml @ 50 mls/hr Q20H IV 05/31/17 18:00 06/30/17 17:59 06/04/17 21:04 Vitamin B Complex (Vitamin B Complex) 1 ea DAILY ORAL 06/05/17 09:00 07/05/17 08:59 06/05/17 08:59 Assessment/Plan Assessment/Plan (1) Left ankle pain (2) Gout (3) Abdominal pain (4) GI Bleed seen dictated ADELITA MANNING Jun 05, 2017 12:56
--- NOTE | 2017-06-05 18:50 | General Progress Note ---
Assessment/Plan Problem List: (1) Gastrointestinal hemorrhage ICD Codes: K92.2 - Gastrointestinal hemorrhage, unspecified SNOMED: 79761475 (2) Anemia ICD Codes: D64.9 - Anemia, unspecified SNOMED: 339446555, 308184621 (3) Elevated troponin ICD Codes: R74.8 - Abnormal levels of other serum enzymes SNOMED: 262758382, 503853640 Assessment/Plan difficult case recurrent bleed now off anticoagulation monitor H&H>>> stable now transfuse PRN cardiology notes reviewed>>> stable H&H>> on ppi>>> will hold GI procedures for now KUB>>> Ileus add colace and miralax repeat KUB fu stool ob Subjective ROS Limited/Unobtainable: No Allergies: Coded Allergies: No Known Allergies (Unverified , 05/31/17) Subjective had maroon colored stools per nurses Objective Last 24 Hour Vital Signs Date Time Temp Pulse Resp B/P (MAP) Pulse Ox O2 Delivery O2 Flow Rate FiO2 06/05/17 16:09 103 06/05/17 16:06 96.9 103 18 117/65 94 Nasal Cannula 2.0 06/05/17 14:00 90 18 112/60 100 Nasal Cannula 2.0 06/05/17 13:00 95 18 107/58 100 Nasal Cannula 2.0 06/05/17 12:00 107 06/05/17 12:00 98.5 92 18 120/60 100 Nasal Cannula 2.0 06/05/17 11:00 112 18 128/67 100 Nasal Cannula 2.0 06/05/17 10:00 100 17 115/58 100 Nasal Cannula 2.0 06/05/17 09:00 108 17 129/66 99 Nasal Cannula 2.0 06/05/17 08:59 96 113/56 06/05/17 08:00 98.9 102 20 113/56 98 Nasal Cannula 2.0 06/05/17 08:00 96 06/05/17 07:00 98 18 115/56 98 Nasal Cannula 2.0 06/05/17 06:00 103 23 117/55 100 Nasal Cannula 2.0 06/05/17 05:00 98 21 117/53 100 Nasal Cannula 2.0 06/05/17 04:00 98.5 103 19 128/65 100 Nasal Cannula 2.0 06/05/17 04:00 103 06/05/17 03:00 100 21 122/54 100 Nasal Cannula 2.0 06/05/17 02:00 101 21 110/62 100 Nasal Cannula 2.0 06/05/17 01:00 94 23 121/64 100 Nasal Cannula 2.0 06/05/17 00:00 123 06/05/17 00:00 99.5 108 21 122/66 100 Nasal Cannula 2.0 06/04/17 23:00 113 23 122/66 100 Nasal Cannula 2.0 06/04/17 22:00 116 22 124/57 100 Nasal Cannula 2.0 06/04/17 21:41 Nasal Cannula 2.0 28 06/04/17 21:41 100 Nasal Cannula 2.0 28 06/04/17 21:03 111 125/57 06/04/17 21:00 122 25 122/65 100 Nasal Cannula 2.0 06/04/17 20:00 98.9 128 29 125/57 100 Nasal Cannula 2.0 06/04/17 20:00 128 06/04/17 19:30 117/66 06/04/17 19:00 116 21 132/74 100 Nasal Cannula 2.0 Intake and Output 06/05/17 06/06/17 19:00 07:00 Intake Total 1420 ml Output Total 670 ml Balance 750 ml Intake Oral 420 ml IV Total 600 ml Other 400 ml Output Urine Total 670 ml Laboratory Tests 06/05/17 05:50: White Blood Count 10.7, Red Blood Count 2.62L, Hemoglobin 8.6L, Hematocrit 26.1L , Mean Corpuscular Volume 99, Mean Corpuscular Hemoglobin 32.8H, Mean Corpuscular Hemoglobin Concent 33.0, Red Cell Distribution Width 13.7, Platelet Count 148L, Mean Platelet Volume 9.5, Neutrophils (%) (Auto) 75.7H, Lymphocytes (%) (Auto) 10.6L, Monocytes (%) (Auto) 11.9H, Eosinophils (%) (Auto) 1.1, Basophils (%) (Auto) 0.8, Sodium Level 144, Potassium Level 4.5, Chloride Level 112H, Carbon Dioxide Level 24, Anion Gap 9, Blood Urea Nitrogen 37H, Creatinine 1.5H, Estimat Glomerular Filtration Rate , Glucose Level 122H, Calcium Level 8.7 , Digoxin Level 1.8 Height (Feet): 5 Height (Inches): 0.00 Weight (Pounds): 165 General Appearance: no apparent distress EENT: normal ENT inspection Neck: supple Cardiovascular: tachycardia Respiratory/Chest: decreased breath sounds Abdomen: normal bowel sounds, non tender, soft Extremities: non-tender WAYNE LANGLEY Jun 05, 2017 18:50
[2017-06-05] MEDS ORDERED: Metoprolol 25mg tab ORAL SCH (21:00)
[2017-06-05] MEDS ORDERED: Miralax 17gm pkt ORAL SCH (21:00)
--- NOTE | 2017-06-05 21:50 | General Progress Note ---
Assessment/Plan Assessment/Plan ASSESSMENT AND RECOMMENDATIONS: # Anemia 2/2 b12 deficiency. The patient is on b12 supplement. # Anemia secondary to gastrointestinal bleed. GI service following and pt is to receive egd/colo when stable. Continue to closely monitor. #. Macrocytosis potentially secondary to liver disease. Continue to monitor. #. Supratherapeutic INR. Vitamin K has been administered. Now normal # Possible ileus. Subjective ROS Limited/Unobtainable: Yes Allergies: Coded Allergies: No Known Allergies (Unverified , 05/31/17) Subjective no major changes, pt is awaiting transfer Objective Last 24 Hour Vital Signs Date Time Temp Pulse Resp B/P (MAP) Pulse Ox O2 Delivery O2 Flow Rate FiO2 06/05/17 20:55 106 125/60 06/05/17 16:09 103 06/05/17 16:06 96.9 103 18 117/65 94 Nasal Cannula 2.0 06/05/17 14:00 90 18 112/60 100 Nasal Cannula 2.0 06/05/17 13:00 95 18 107/58 100 Nasal Cannula 2.0 06/05/17 12:00 107 06/05/17 12:00 98.5 92 18 120/60 100 Nasal Cannula 2.0 06/05/17 11:00 112 18 128/67 100 Nasal Cannula 2.0 06/05/17 10:00 100 17 115/58 100 Nasal Cannula 2.0 06/05/17 09:00 108 17 129/66 99 Nasal Cannula 2.0 06/05/17 08:59 96 113/56 06/05/17 08:00 98.9 102 20 113/56 98 Nasal Cannula 2.0 06/05/17 08:00 96 06/05/17 07:00 98 18 115/56 98 Nasal Cannula 2.0 06/05/17 06:00 103 23 117/55 100 Nasal Cannula 2.0 06/05/17 05:00 98 21 117/53 100 Nasal Cannula 2.0 06/05/17 04:00 98.5 103 19 128/65 100 Nasal Cannula 2.0 06/05/17 04:00 103 06/05/17 03:00 100 21 122/54 100 Nasal Cannula 2.0 06/05/17 02:00 101 21 110/62 100 Nasal Cannula 2.0 06/05/17 01:00 94 23 121/64 100 Nasal Cannula 2.0 06/05/17 00:00 123 06/05/17 00:00 99.5 108 21 122/66 100 Nasal Cannula 2.0 06/04/17 23:00 113 23 122/66 100 Nasal Cannula 2.0 06/04/17 22:00 116 22 124/57 100 Nasal Cannula 2.0 Intake and Output 06/05/17 06/06/17 19:00 07:00 Intake Total 1420 ml Output Total 670 ml Balance 750 ml Intake Oral 420 ml IV Total 600 ml Other 400 ml Output Urine Total 670 ml Laboratory Tests 06/05/17 05:50: White Blood Count 10.7, Red Blood Count 2.62L, Hemoglobin 8.6L, Hematocrit 26.1L , Mean Corpuscular Volume 99, Mean Corpuscular Hemoglobin 32.8H, Mean Corpuscular Hemoglobin Concent 33.0, Red Cell Distribution Width 13.7, Platelet Count 148L, Mean Platelet Volume 9.5, Neutrophils (%) (Auto) 75.7H, Lymphocytes (%) (Auto) 10.6L, Monocytes (%) (Auto) 11.9H, Eosinophils (%) (Auto) 1.1, Basophils (%) (Auto) 0.8, Sodium Level 144, Potassium Level 4.5, Chloride Level 112H, Carbon Dioxide Level 24, Anion Gap 9, Blood Urea Nitrogen 37H, Creatinine 1.5H, Estimat Glomerular Filtration Rate , Glucose Level 122H, Calcium Level 8.7 , Digoxin Level 1.8 Height (Feet): 5 Height (Inches): 0.00 Weight (Pounds): 165 General Appearance: no apparent distress EENT: normal ENT inspection Neck: normal inspection Cardiovascular: no gallop/murmur Respiratory/Chest: no accessory muscle use Abdomen: normal bowel sounds Edema: mild edema Neurologic: no motor/sensory deficits Kenny Castle Jun 05, 2017 21:50
--- NOTE | 2017-06-05 23:31 | Cardiology Progress Note ---
Assessment/Plan Assessment/Plan 1. Elevated troponin level, ? demand-ischemia, no STT changes on the ECG, scheduled to be transferred to [facility] for cardiac cath in am. No anti-platelet at this time. 2. Paroxysmal atrial fibrillation, converted to a.fib on PO amiodarone, continue digoxin 0.125mg daily, increase metoprolol to keep ventricular response <90. 3. GI bleed, awaiting endoscopy pending outcome of cardiac cath. Subjective Subjective Atrial fibrillation with controlled ventricular response. Transferred to the telemetry. Objective Last 24 Hour Vital Signs Date Time Temp Pulse Resp B/P (MAP) Pulse Ox O2 Delivery O2 Flow Rate FiO2 06/05/17 20:55 106 125/60 06/05/17 20:00 98.0 106 20 120/64 94 Nasal Cannula 2.0 06/05/17 19:30 Nasal Cannula 2.0 28 06/05/17 19:30 94 Nasal Cannula 2.0 28 06/05/17 16:09 103 06/05/17 16:06 96.9 103 18 117/65 94 Nasal Cannula 2.0 06/05/17 14:00 90 18 112/60 100 Nasal Cannula 2.0 06/05/17 13:00 95 18 107/58 100 Nasal Cannula 2.0 06/05/17 12:00 107 06/05/17 12:00 98.5 92 18 120/60 100 Nasal Cannula 2.0 06/05/17 11:00 112 18 128/67 100 Nasal Cannula 2.0 06/05/17 10:00 100 17 115/58 100 Nasal Cannula 2.0 06/05/17 09:00 108 17 129/66 99 Nasal Cannula 2.0 06/05/17 08:59 96 113/56 06/05/17 08:00 98.9 102 20 113/56 98 Nasal Cannula 2.0 06/05/17 08:00 96 06/05/17 07:00 98 18 115/56 98 Nasal Cannula 2.0 06/05/17 06:00 103 23 117/55 100 Nasal Cannula 2.0 06/05/17 05:00 98 21 117/53 100 Nasal Cannula 2.0 06/05/17 04:00 98.5 103 19 128/65 100 Nasal Cannula 2.0 06/05/17 04:00 103 06/05/17 03:00 100 21 122/54 100 Nasal Cannula 2.0 06/05/17 02:00 101 21 110/62 100 Nasal Cannula 2.0 06/05/17 01:00 94 23 121/64 100 Nasal Cannula 2.0 06/05/17 00:00 123 06/05/17 00:00 99.5 108 21 122/66 100 Nasal Cannula 2.0 Intake and Output 06/05/17 06/06/17 19:00 07:00 Intake Total 1420 ml Output Total 670 ml Balance 750 ml Intake Oral 420 ml IV Total 600 ml Other 400 ml Output Urine Total 670 ml 2D Echo: LVEF 60%, MIld LAE, Mild AR, Grade I LVDD Laboratory Tests Test 06/05/17 05:50 White Blood Count 10.7 K/UL (4.8-10.8) Red Blood Count 2.62 M/UL (4.20-5.40) L Hemoglobin 8.6 G/DL (12.0-16.0) L Hematocrit 26.1 % (37.0-47.0) L Mean Corpuscular Volume 99 FL (80-99) Mean Corpuscular Hemoglobin 32.8 PG (27.0-31.0) H Mean Corpuscular Hemoglobin Concent 33.0 G/DL (32.0-36.0) Red Cell Distribution Width 13.7 % (11.6-14.8) Platelet Count 148 K/UL (150-450) L Mean Platelet Volume 9.5 FL (6.5-10.1) Neutrophils (%) (Auto) 75.7 % (45.0-75.0) H Lymphocytes (%) (Auto) 10.6 % (20.0-45.0) L Monocytes (%) (Auto) 11.9 % (1.0-10.0) H Eosinophils (%) (Auto) 1.1 % (0.0-3.0) Basophils (%) (Auto) 0.8 % (0.0-2.0) Sodium Level 144 MMOL/L (136-145) Potassium Level 4.5 MMOL/L (3.5-5.1) Chloride Level 112 MMOL/L (98-107) H Carbon Dioxide Level 24 MMOL/L (21-32) Anion Gap 9 (5-15) Blood Urea Nitrogen 37 mg/dL (7-18) H Creatinine 1.5 MG/DL (0.55-1.30) H Estimat Glomerular Filtration Rate mL/min (>60) Glucose Level 122 MG/DL (74-106) H Calcium Level 8.7 MG/DL (8.5-10.1) Digoxin Level 1.8 NG/ML (0.9-2.0) Objective GENERAL: No acute distress, awake and alert. HEENT: PERRLA, EOMI, anicteric, atraumatic, normocephalic NECK: No JVD, no carotid bruit, carotid upstroke 2+ B/L PULMONARY: Decreased breath sounds both bases CARDIOVASCULAR: Irregularly irregular, normal S1S2, No murmurs, gallops or rubs. ABDOMEN: Soft, nontender, and nondistended, no HSM, + BS EXTREMITIES: There is 1+ edema B/L ELEONORA SILVA Jun 05, 2017 23:31
[2017-06-06 00:08] VITALS: BP 121/69
--- NOTE | 2017-06-06 00:15 | Consultation ---
DATE OF CONSULTATION: 06/05/2017 PAIN MANAGEMENT CONSULTATION CONSULTING PHYSICIAN: Shelbi Vega M.D. REFERRING PHYSICIAN: Leonard Herrera D.O. and Ty Fisher M.D. PHYSICIAN NETWORK SUPPORT ENGINEER: Luis Angel Regan CHIEF COMPLAINT: Abdominal pain and left ankle pain. HISTORY OF PRESENT ILLNESS: The patient is an 86-year-old female, who has been seen on the ICU of [facility] for initial comprehensive pain management consultation. The patient was admitted into the hospital under the care of Dr. Fisher, now being covered by Dr. 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 At this time, the patient is comfortable, taking Tylenol as needed, which has reduced her pain from 7 to 4/10. The patient is comfortable. They were ruling a DVT, which was ruled out at this time. The patient will be continued on Tylenol as needed for pain and we will start the patient on Lidoderm patch to be applied to the left ankle at the site of the pain 12 hours on and 12 hours off. PAST MEDICAL HISTORY: Hyperlipidemia, hypertension, arrhythmia, atrial fibrillation, and hemorrhoid. PAST SURGICAL HISTORY: Hysterectomy and pacemaker. ALLERGIES: No known drug allergies. MEDICATIONS: Coumadin, Lipitor, enalapril, sotalol, Demadex, verapamil, and spironolactone. SOCIAL HISTORY: Denies smoking tobacco, drinking alcohol, or drug abuse. REVIEW OF SYSTEMS: Denies rash, fever, chills, sweating, dizziness, drowsiness, blurred vision, sore throat, or change in weight. No shortness of breath or chest pain, or palpitations. No nausea, vomiting, diarrhea, or blood in the stool or urine. At this time, is complaining of abdominal pain and left ankle pain. PHYSICAL EXAMINATION: GENERAL: Alert, awake, and oriented. VITAL SIGNS: Blood pressure 128/67, heart rate 107, oxygen saturation 100%, respiratory rate 18, temperature 98.9 degrees Fahrenheit. HEENT: PERRLA. NECK: Range of motion is full in all directions. No tenderness to paracervical muscles. No adenopathy LUNGS: Decreased breath sounds bilaterally. ABDOMEN: Obese. BACK: Range of motion is decreased in flexion and extension. No tenderness to paraspinal muscles. No tenderness to trapezius and rhomboid muscles. EXTREMITIES: Upper extremity range of motion is full in all directions. Motor is intact. No cyanosis. No clubbing. No edema. Sensory is intact. Reflexes are not obtainable. No adenopathy. Lower extremity motion is decreased due to the patient's condition. Motor is reduced. No cyanosis. No clubbing. No edema noted. Sensory is intact. Reflexes are not obtainable. No adenopathy. ASSESSMENT AND PLAN: This is an 86-year-old female with left ankle pain, gout, abdominal pain, and gastrointestinal bleed. The patient will be continued on Tylenol 650 mg tablet as needed for pain and we will start the patient on Lidoderm patch 12 hours on and 12 hours off to be applied to the left ankle at the site of the pain. The patient was discussed with Dr. Vega and Dr. Vega concurred. We will follow the patient. Thank you very much for the courtesy of this consultation. Shelbi Vega M.D. LORI Regan DR: Britta JOB#: [id number] CC:
[2017-06-06 04:00] VITALS: BP 109/48
--- NOTE | 2017-06-06 08:31 | General Progress Note ---
Assessment/Plan Assessment/Plan (1) Left ankle pain (2) Gout (3) Abdominal pain (4) GI Bleed Pt to be continued on Tylenol and Lidoderm patch. D/w Dr Vega and he concurred. Subjective Date patient seen: Jun 06, 2017 Time patient seen: 08:00 - am Allergies: Coded Allergies: No Known Allergies (Unverified , 05/31/17) Subjective REVIEW OF SYSTEMS: Denies rash, fever, chills, sweating, dizziness, drowsiness, blurred vision, sore throat, or change in weight. No shortness of breath or chest pain, or palpitations. No nausea, vomiting, diarrhea, or blood in the stool or urine. At this time, is complaining of abdominal pain and left ankle pain. SUBJECTIVE: Patient is in bed no sign of pain and has been tolerated on the Tylenol. Objective Last 24 Hour Vital Signs Date Time Temp Pulse Resp B/P (MAP) Pulse Ox O2 Delivery O2 Flow Rate FiO2 06/06/17 04:00 113 06/06/17 04:00 98.0 103 20 109/48 100 Room Air 06/06/17 00:08 97.0 128 20 121/69 94 Nasal Cannula 2.0 06/06/17 00:00 114 06/05/17 20:55 106 125/60 06/05/17 20:00 98.0 106 20 120/64 94 Nasal Cannula 2.0 06/05/17 20:00 123 06/05/17 19:30 Nasal Cannula 2.0 28 06/05/17 19:30 94 Nasal Cannula 2.0 28 06/05/17 16:09 103 06/05/17 16:06 96.9 103 18 117/65 94 Nasal Cannula 2.0 06/05/17 14:00 90 18 112/60 100 Nasal Cannula 2.0 06/05/17 13:00 95 18 107/58 100 Nasal Cannula 2.0 06/05/17 12:00 107 06/05/17 12:00 98.5 92 18 120/60 100 Nasal Cannula 2.0 06/05/17 11:00 112 18 128/67 100 Nasal Cannula 2.0 06/05/17 10:00 100 17 115/58 100 Nasal Cannula 2.0 06/05/17 09:00 108 17 129/66 99 Nasal Cannula 2.0 06/05/17 08:59 96 113/56 Height (Feet): 5 Height (Inches): 0.00 Weight (Pounds): 165 Objective GENERAL: Alert, awake, and oriented. HEENT: PERRLA. NECK: Range of motion is full in all directions. No tenderness to paracervical muscles. No adenopathy LUNGS: Decreased breath sounds bilaterally. ABDOMEN: Obese. BACK: Range of motion is decreased in flexion and extension. No tenderness to paraspinal muscles. No tenderness to trapezius and rhomboid muscles. EXTREMITIES: No cyanosis. No clubbing. NEURO: No changes. ADELITA MANNING Jun 06, 2017 08:31
--- NOTE | 2017-06-06 08:31 | Consultation ---
DATE OF CONSULTATION: 06/01/2017 CARDIOLOGY CONSULTATION CONSULTING PHYSICIAN: Abner Haywood M.D. REFERRING PHYSICIAN: Ty Fisher M.D. ATTENDING PHYSICIAN: Ty Fisher M.D. REASON FOR CONSULTATION: Management of atrial fibrillation. HISTORY OF PRESENT ILLNESS: The patient is a very unfortunate 86-year-old female, who presents to the hospital with bright red blood per rectum. Apparently, the patient had feeling of spinning, but no actual episode of syncope. She had a blood pressure of 102/59 mmHg on arrival to the hospital and was admitted to intensive care unit for GI bleed. The patient has been taking warfarin for paroxysmal atrial fibrillation, which is controlled with sotalol. A 12-lead electrocardiogram at the time of arrival to the hospital was sinus rhythm at a rate of 63. In the emergency department, the patient had no rose bloody stools. Hemoglobin was 9.6. She received 1 unit of packed in the emergency department and was transferred to ICU. Her INR level was 6.0. PAST MEDICAL HISTORY: 1. Paroxysmal atrial fibrillation, in sinus rhythm, maintenance therapy with sotalol and warfarin. 2. History of dual-chamber pacemaker implantation. 3. History of hypertension. 4. History of dyslipidemia. PAST SURGICAL HISTORY: Dual-chamber pacemaker implantation. LIST OF MEDICATIONS: 1. Atorvastatin 40 mg p.o. at bedtime. 2. Enalapril 20 mg daily. 3. Acetaminophen 650 mg q.8 h. p.r.n. headache and temperature above 101. 4. Sotalol 80 mg p.o. twice daily. 5. Torsemide 50 mg daily. 6. Verapamil 360 mg daily. 7. Warfarin 5 mg p.o. daily. 8. Spironolactone 25 mg p.o. daily. ALLERGIES: No known drug allergies. FAMILY HISTORY: No premature coronary artery disease in first-degree relatives. REVIEW OF SYSTEMS: HEENT: Denies any headache, diplopia, or blurred vision. CONSTITUTIONAL: Complains of generalized weakness, but no fever, chills, or night sweats. CARDIOVASCULAR: Denies any chest pain, shortness of breath, PND, orthopnea, or palpitations, but has an episode of near faint. PULMONARY: Denies any cough, hemoptysis, or wheezing. GASTROINTESTINAL: Bright red blood per rectum. No melena and no hematemesis. GENITOURINARY: Denies any hematuria, dysuria, or incontinence. NEUROLOGY: Denies any motor dysfunction, sensory deficit, or altered speech. PHYSICAL EXAMINATION: VITAL SIGNS: At the time of arrival to the hospital, blood pressure is 102/59, respirations 14, pulse of 81, temperature 95.5 degrees Fahrenheit, and O2 saturation 92%. GENERAL: The patient is a very pleasant 86-year-old female, in no apparent respiratory distress. Alert and oriented x4. HEENT: Atraumatic and normocephalic. Pupils are equal, round, and reactive to light and accommodation. Extraocular muscles intact. NECK: JVP is less than 5 cm. No carotid bruit. Carotid upstroke is 2+ bilaterally. CARDIOVASCULAR: Normal S1, S2. Regular rate and rhythm. Tachycardic. No murmurs, gallops, or rubs. PMI is at 4th intercostal space at the midclavicular line. LUNGS: Clear to auscultation bilaterally . ABDOMEN: Soft, nontender, and nondistended. No hepatosplenomegaly. Positive bowel sounds. EXTREMITIES: No evidence of edema, clubbing, or cyanosis. LABORATORY AND DIAGNOSTIC DATA: Chest x-ray showed presence of a dual-chamber pacemaker, otherwise, hiatal hernia. No acute cardiopulmonary disease. A 12-lead electrocardiogram shows sinus rhythm at a rate of [address] and T-wave abnormalities. WBC 6.5, hemoglobin 9.6, hematocrit 29.3, and platelet count is 130. Sodium 137, potassium is 4.2, chloride 105, bicarbonate 24, BUN of 61, creatinine 2.3, glucose is 160, and calcium is 8.4. Troponin I was 0.093. Lipase is elevated at 612. ASSESSMENT AND PLAN: The patient is a very unfortunate 86-year-old female, seen in Cardiology consultation at request of Dr. Fisher. 1. Slight elevation of troponin level in a patient with no chest pain or shortness of breath. This could be due to transient hypotension with a near faint episode that the patient had as a result of the gastrointestinal bleed. We will continue with serial troponin I level. At this time, a 12-lead electrocardiogram does not show any evidence of ischemia. We will obtain and review a 2D echocardiography for possible wall motion. If necessary, the patient will be transferred to outside facility with cardiac catheterization amenities for evaluation of coronary artery disease. At this time, in view of lack of symptoms, I would focus more on the treatment of GI bleed. 2. Paroxysmal atrial fibrillation, in sinus rhythm on sotalol therapy. The patient was also on warfarin for primary thromboembolic preventive measures. 3. Both warfarin and aspirin are on hold. I would not continue aspirin in this patient unless the patient has coronary artery disease or prior history of stroke. 4. Lower gastrointestinal bleed. The total amount of time spent in evaluation of this patient in the intensive care unit of [facility] was 45 minutes. I would like to thank, Dr. Fisher, for the courtesy of this consultation. Abner Haywood M.D. DR: TANNER JOB#: [id number] CC:
[2017-06-06 08:47] LABS: MEAN CORPUSCULAR HEMOGLOBIN 32.4 PG (27.0-31.0); MEAN CORPUSCULAR HGB CONC 32.7 G/DL (32.0-36.0); MEAN CORPUSCULAR VOLUME 99 FL (80-99); MEAN PLATELET VOLUME 8.5 FL (6.5-10.1); PLATELET COUNT 154 K/UL (150-450); RED BLOOD COUNT 2.33 M/UL (4.20-5.40); RED CELL DISTRIBUTION WIDTH 13.5 % (11.6-14.8); WHITE BLOOD COUNT 10.1 K/UL (4.8-10.8)
[2017-06-06 08:48] VITALS: BP 104/66
[2017-06-06 08:59] LABS: ANION GAP 11 (5-15); CALCIUM 8.6 MG/DL (8.5-10.1); CARBON DIOXIDE 22 MMOL/L (21-32); CHLORIDE 111 MMOL/L (98-107); CREATININE 1.6 MG/DL (0.55-1.30); POTASSIUM 4.3 MMOL/L (3.5-5.1); SODIUM 144 MMOL/L (136-145)
[2017-06-06] MEDS ORDERED: Metoprolol 25mg tab ORAL SCH ×2 (09:00→21:00)
[2017-06-06] MEDS ORDERED: Digoxin 0.125mg tab ORAL SCH ×2 (09:00)
--- NOTE | 2017-06-06 09:27 | Podiatric Progress Note ---
Assessment/Plan Patient Vianney Boateng is a 86 year old female who was admitted on May 31, 2017 at 13 :02 with GI bleed Problems: (1) Ankle pain, left (2) Gout attack Assessment/Plan ASSESSMENT: - Left ankle pain. Elevated uric acid levels with history of gout. Ankle xray negative for fracture PLAN: - Recommend compression, icing, anti inflammatory medication, and decreased motion until pain has resolved Subjective Reason for consult Left ankle pain Allergies: Coded Allergies: No Known Allergies (Unverified , 05/31/17) Subjective Patient states mild improvement of left ankle pain over the last 2 days. She mentions that icing and compression therapy seems to be helping. Patient is currently not on any anti inflammatory medications Objective Exam Last 24 Hour Vital Signs Date Time Temp Pulse Resp B/P (MAP) Pulse Ox O2 Delivery O2 Flow Rate FiO2 06/06/17 08:48 97.7 107 20 104/66 99 Nasal Cannula 2.0 06/06/17 04:00 113 06/06/17 04:00 98.0 103 20 109/48 100 Room Air 06/06/17 00:08 97.0 128 20 121/69 94 Nasal Cannula 2.0 06/06/17 00:00 114 06/05/17 20:55 106 125/60 06/05/17 20:00 98.0 106 20 120/64 94 Nasal Cannula 2.0 06/05/17 20:00 123 06/05/17 19:30 Nasal Cannula 2.0 28 06/05/17 19:30 94 Nasal Cannula 2.0 28 06/05/17 16:09 103 06/05/17 16:06 96.9 103 18 117/65 94 Nasal Cannula 2.0 06/05/17 14:00 90 18 112/60 100 Nasal Cannula 2.0 06/05/17 13:00 95 18 107/58 100 Nasal Cannula 2.0 06/05/17 12:00 107 06/05/17 12:00 98.5 92 18 120/60 100 Nasal Cannula 2.0 06/05/17 11:00 112 18 128/67 100 Nasal Cannula 2.0 06/05/17 10:00 100 17 115/58 100 Nasal Cannula 2.0 Laboratory Tests Test 06/06/17 06:20 06/06/17 07:30 Stool Occult Blood Pending White Blood Count 10.1 K/UL (4.8-10.8) Red Blood Count 2.33 M/UL (4.20-5.40) L Hemoglobin 7.5 G/DL (12.0-16.0) L Hematocrit 23.1 % (37.0-47.0) L Mean Corpuscular Volume 99 FL (80-99) Mean Corpuscular Hemoglobin 32.4 PG (27.0-31.0) H Mean Corpuscular Hemoglobin Concent 32.7 G/DL (32.0-36.0) Red Cell Distribution Width 13.5 % (11.6-14.8) Platelet Count 154 K/UL (150-450) Mean Platelet Volume 8.5 FL (6.5-10.1) Neutrophils (%) (Auto) % (45.0-75.0) Lymphocytes (%) (Auto) % (20.0-45.0) Monocytes (%) (Auto) % (1.0-10.0) Eosinophils (%) (Auto) % (0.0-3.0) Basophils (%) (Auto) % (0.0-2.0) Neutrophils % (Manual) Pending Lymphocytes % (Manual) Pending Platelet Estimate Pending Platelet Morphology Pending Sodium Level 144 MMOL/L (136-145) Potassium Level 4.3 MMOL/L (3.5-5.1) Chloride Level 111 MMOL/L (98-107) H Carbon Dioxide Level 22 MMOL/L (21-32) Anion Gap 11 (5-15) Blood Urea Nitrogen 40 mg/dL (7-18) H Creatinine 1.6 MG/DL (0.55-1.30) H Estimat Glomerular Filtration Rate mL/min (>60) Glucose Level 117 MG/DL (74-106) H Calcium Level 8.6 MG/DL (8.5-10.1) Microbiology Date/Time Source Procedure Growth Status 05/31/17 16:43 Nasal Nares MRSA Culture - Final NO METHICILLIN RESISTANT STAPH AUREUS... Complete 05/31/17 16:43 Rectum VRE Culture - Final NO VANCOMYCIN RESISTANT ENTEROCOCCUS ... Complete Exam Narrative Left ankle with increased warmth compared to contralateral side. Edema has improved with compression therapy. No nausea, vomiting, fevers, or chills reported Anjel Pierce DPM Jun 06, 2017 09:27
[2017-06-06] MEDS: Docusate 100mg cap ORAL SCH ×2 (09:43→18:00)
[2017-06-06] MEDS: Amiodarone 200mg tab ORAL SCH (09:45)
[2017-06-06] MEDS: Pantoprazole Inj IVP SCH (09:47)
[2017-06-06 10:00] LABS: BAND NEUTROPHILS % (MANUAL) 10 % (0-8); BASOPHILS % (MANUAL) 0 % (0-2); EOSINOPHILS % (MANUAL) 0 % (0-3); HYPOCHROMASIA 1+; LYMPHOCYTES % (MANUAL) 6 % (20-45); NEUTROPHILS % (MANUAL) 73 % (45-75); PLATELET ESTIMATE ADEQUATE; PLATELET MORPHOLOGY NORMAL; TOTAL CELLS COUNTED 100
--- NOTE | 2017-06-06 11:44 | GI Progress Note ---
Assessment/Plan Problems: (1) Leukocytosis ICD Codes: D72.829 - Elevated white blood cell count, unspecified SNOMED: 714100316, 739548358 (2) Elevated troponin ICD Codes: R74.8 - Abnormal levels of other serum enzymes SNOMED: 836817749, 731008822 (3) GI bleed ICD Codes: K92.2 - Gastrointestinal hemorrhage, unspecified SNOMED: 85293196 (4) Pancreatitis ICD Codes: K85.90 - Acute pancreatitis without necrosis or infection, unspecified SNOMED: 05825764 (5) Supratherapeutic INR ICD Codes: R79.1 - Abnormal coagulation profile SNOMED: 901583640, 868123871 (6) Anemia ICD Codes: D64.9 - Anemia, unspecified SNOMED: 983582716, 294163347 Status: unchanged Status Narrative Discussed with Dr. Irizarry. Assessment/Plan no noted active rectal bleed at this time elevated INR >> 6.0 >> now normal elevated troponin >> 0.09, increased to .329 >> now downtrending elevated lipase >> 600 + pacemaker present hep panel >> negative OB stool positive pt pending transfer to [facility] recurrent bleed now off anticoagulation monitor H&H>>> stable now transfuse PRN cardiology notes reviewed>>> stable H&H>> on ppi>>> will hold GI procedures for now KUB>>> Ileus colace and miralax repeat KUB fu labs Subjective Subjective generalized weakness abdominal distention Objective Last 24 Hour Vital Signs Date Time Temp Pulse Resp B/P (MAP) Pulse Ox O2 Delivery O2 Flow Rate FiO2 06/06/17 09:46 107 104/66 06/06/17 09:46 107 06/06/17 08:48 97.7 107 20 104/66 99 Nasal Cannula 2.0 06/06/17 04:00 113 06/06/17 04:00 98.0 103 20 109/48 100 Room Air 06/06/17 00:08 97.0 128 20 121/69 94 Nasal Cannula 2.0 06/06/17 00:00 114 06/05/17 20:55 106 125/60 06/05/17 20:00 98.0 106 20 120/64 94 Nasal Cannula 2.0 06/05/17 20:00 123 06/05/17 19:30 Nasal Cannula 2.0 28 06/05/17 19:30 94 Nasal Cannula 2.0 28 06/05/17 16:09 103 06/05/17 16:06 96.9 103 18 117/65 94 Nasal Cannula 2.0 06/05/17 14:00 90 18 112/60 100 Nasal Cannula 2.0 06/05/17 13:00 95 18 107/58 100 Nasal Cannula 2.0 06/05/17 12:00 107 06/05/17 12:00 98.5 92 18 120/60 100 Nasal Cannula 2.0 Intake and Output 06/06/17 06/07/17 19:00 07:00 Intake Total 120 ml Balance 120 ml Intake Oral 120 ml Laboratory Tests Test 06/06/17 06:20 06/06/17 07:30 Stool Occult Blood Positive (NEGATIVE) White Blood Count 10.1 K/UL (4.8-10.8) Red Blood Count 2.33 M/UL (4.20-5.40) L Hemoglobin 7.5 G/DL (12.0-16.0) L Hematocrit 23.1 % (37.0-47.0) L Mean Corpuscular Volume 99 FL (80-99) Mean Corpuscular Hemoglobin 32.4 PG (27.0-31.0) H Mean Corpuscular Hemoglobin Concent 32.7 G/DL (32.0-36.0) Red Cell Distribution Width 13.5 % (11.6-14.8) Platelet Count 154 K/UL (150-450) Mean Platelet Volume 8.5 FL (6.5-10.1) Neutrophils (%) (Auto) % (45.0-75.0) Lymphocytes (%) (Auto) % (20.0-45.0) Monocytes (%) (Auto) % (1.0-10.0) Eosinophils (%) (Auto) % (0.0-3.0) Basophils (%) (Auto) % (0.0-2.0) Differential Total Cells Counted 100 Neutrophils % (Manual) 73 % (45-75) Lymphocytes % (Manual) 6 % (20-45) L Monocytes % (Manual) 11 % (1-10) H Eosinophils % (Manual) 0 % (0-3) Basophils % (Manual) 0 % (0-2) Band Neutrophils 10 % (0-8) H Platelet Estimate Adequate Platelet Morphology Normal Hypochromasia 1+ Sodium Level 144 MMOL/L (136-145) Potassium Level 4.3 MMOL/L (3.5-5.1) Chloride Level 111 MMOL/L (98-107) H Carbon Dioxide Level 22 MMOL/L (21-32) Anion Gap 11 (5-15) Blood Urea Nitrogen 40 mg/dL (7-18) H Creatinine 1.6 MG/DL (0.55-1.30) H Estimat Glomerular Filtration Rate mL/min (>60) Glucose Level 117 MG/DL (74-106) H Calcium Level 8.6 MG/DL (8.5-10.1) Height (Feet): 5 Height (Inches): 0.00 Weight (Pounds): 165 General Appearance: no apparent distress, alert Cardiovascular: normal rate Respiratory/Chest: normal breath sounds Abdominal Exam: soft, distended Juliana Yousif N.P. Jun 06, 2017 11:44
[2017-06-06 11:51] VITALS: BP 121/62
--- NOTE | 2017-06-06 12:20 | General Progress Note ---
Assessment/Plan Status: unchanged Status Narrative Cr 1.6- Hgb lower Assessment/Plan Acute renal failure- ? Pre renal ( GI Bleed) on top of Renal GI Bleed- Anemia CHF high Lipase Plan: per consultants- GI eval Transfusion- Echo- 60% Ej Fx LORI kidney- small kidneys continue monitor renal parameters and H&H Subjective ROS Limited/Unobtainable: No Constitutional: Reports: malaise Allergies: Coded Allergies: No Known Allergies (Unverified , 05/31/17) Objective Last 24 Hour Vital Signs Date Time Temp Pulse Resp B/P (MAP) Pulse Ox O2 Delivery O2 Flow Rate FiO2 06/06/17 11:51 98.1 90 20 121/62 98 Nasal Cannula 2.0 06/06/17 09:46 107 104/66 06/06/17 09:46 107 06/06/17 08:48 97.7 107 20 104/66 99 Nasal Cannula 2.0 06/06/17 04:00 113 06/06/17 04:00 98.0 103 20 109/48 100 Room Air 06/06/17 00:08 97.0 128 20 121/69 94 Nasal Cannula 2.0 06/06/17 00:00 114 06/05/17 20:55 106 125/60 06/05/17 20:00 98.0 106 20 120/64 94 Nasal Cannula 2.0 06/05/17 20:00 123 06/05/17 19:30 Nasal Cannula 2.0 28 06/05/17 19:30 94 Nasal Cannula 2.0 28 06/05/17 16:09 103 06/05/17 16:06 96.9 103 18 117/65 94 Nasal Cannula 2.0 06/05/17 14:00 90 18 112/60 100 Nasal Cannula 2.0 06/05/17 13:00 95 18 107/58 100 Nasal Cannula 2.0 Intake and Output 06/06/17 06/07/17 19:00 07:00 Intake Total 120 ml Balance 120 ml Intake Oral 120 ml Laboratory Tests 06/06/17 06:20: Stool Occult Blood Positive 06/06/17 07:30: White Blood Count 10.1, Red Blood Count 2.33L, Hemoglobin 7.5L, Hematocrit 23.1L , Mean Corpuscular Volume 99, Mean Corpuscular Hemoglobin 32.4H, Mean Corpuscular Hemoglobin Concent 32.7, Red Cell Distribution Width 13.5, Platelet Count 154, Mean Platelet Volume 8.5, Neutrophils (%) (Auto) , Lymphocytes (%) ( Auto) , Monocytes (%) (Auto) , Eosinophils (%) (Auto) , Basophils (%) (Auto) , Differential Total Cells Counted 100, Neutrophils % (Manual) 73, Lymphocytes % ( Manual) 6L, Monocytes % (Manual) 11H, Eosinophils % (Manual) 0, Basophils % ( Manual) 0, Band Neutrophils 10H, Platelet Estimate Adequate, Platelet Morphology Normal, Hypochromasia 1+, Sodium Level 144, Potassium Level 4.3, Chloride Level 111H, Carbon Dioxide Level 22, Anion Gap 11, Blood Urea Nitrogen 40H, Creatinine 1.6H, Estimat Glomerular Filtration Rate , Glucose Level 117H, Calcium Level 8.6 Height (Feet): 5 Height (Inches): 0.00 Weight (Pounds): 165 General Appearance: no apparent distress Objective no other changes ALOK VILLALTA Jun 06, 2017 12:20
--- NOTE | 2017-06-06 14:24 | Cardiology Progress Note ---
Assessment/Plan Assessment/Plan 1. Elevated troponin level, ? demand-ischemia, no STT changes on the ECG, scheduled to be transferred to [facility] for cardiac cath in am.Discussed with Kristel her daughter who is contemplating the procedure. No anti-platelet at this time. 12 lead ECG today. 2. Paroxysmal atrial fibrillation, converted to a.fib in this admission, on PO amiodarone, continue digoxin 0.125mg daily, increase metoprolol to 100mg bid to keep ventricular response <90. 3. GI bleed, awaiting endoscopy pending outcome of cardiac cath. Subjective Subjective Atrial fibrillation with rapid ventricular response at 98. Left foot pain. Objective Last 24 Hour Vital Signs Date Time Temp Pulse Resp B/P (MAP) Pulse Ox O2 Delivery O2 Flow Rate FiO2 06/06/17 11:51 98.1 90 20 121/62 98 Nasal Cannula 2.0 06/06/17 09:46 107 104/66 06/06/17 09:46 107 06/06/17 08:48 97.7 107 20 104/66 99 Nasal Cannula 2.0 06/06/17 04:00 113 06/06/17 04:00 98.0 103 20 109/48 100 Room Air 06/06/17 00:08 97.0 128 20 121/69 94 Nasal Cannula 2.0 06/06/17 00:00 114 06/05/17 20:55 106 125/60 06/05/17 20:00 98.0 106 20 120/64 94 Nasal Cannula 2.0 06/05/17 20:00 123 06/05/17 19:30 Nasal Cannula 2.0 28 06/05/17 19:30 94 Nasal Cannula 2.0 28 06/05/17 16:09 103 06/05/17 16:06 96.9 103 18 117/65 94 Nasal Cannula 2.0 Intake and Output 06/06/17 06/07/17 19:00 07:00 Intake Total 120 ml Balance 120 ml Intake Oral 120 ml 2D Echo: LVEF 60%, MIld LAE, Mild AR, Grade I LVDD Laboratory Tests Test 06/06/17 06:20 06/06/17 07:30 Stool Occult Blood Positive (NEGATIVE) White Blood Count 10.1 K/UL (4.8-10.8) Red Blood Count 2.33 M/UL (4.20-5.40) L Hemoglobin 7.5 G/DL (12.0-16.0) L Hematocrit 23.1 % (37.0-47.0) L Mean Corpuscular Volume 99 FL (80-99) Mean Corpuscular Hemoglobin 32.4 PG (27.0-31.0) H Mean Corpuscular Hemoglobin Concent 32.7 G/DL (32.0-36.0) Red Cell Distribution Width 13.5 % (11.6-14.8) Platelet Count 154 K/UL (150-450) Mean Platelet Volume 8.5 FL (6.5-10.1) Neutrophils (%) (Auto) % (45.0-75.0) Lymphocytes (%) (Auto) % (20.0-45.0) Monocytes (%) (Auto) % (1.0-10.0) Eosinophils (%) (Auto) % (0.0-3.0) Basophils (%) (Auto) % (0.0-2.0) Differential Total Cells Counted 100 Neutrophils % (Manual) 73 % (45-75) Lymphocytes % (Manual) 6 % (20-45) L Monocytes % (Manual) 11 % (1-10) H Eosinophils % (Manual) 0 % (0-3) Basophils % (Manual) 0 % (0-2) Band Neutrophils 10 % (0-8) H Platelet Estimate Adequate Platelet Morphology Normal Hypochromasia 1+ Sodium Level 144 MMOL/L (136-145) Potassium Level 4.3 MMOL/L (3.5-5.1) Chloride Level 111 MMOL/L (98-107) H Carbon Dioxide Level 22 MMOL/L (21-32) Anion Gap 11 (5-15) Blood Urea Nitrogen 40 mg/dL (7-18) H Creatinine 1.6 MG/DL (0.55-1.30) H Estimat Glomerular Filtration Rate mL/min (>60) Glucose Level 117 MG/DL (74-106) H Calcium Level 8.6 MG/DL (8.5-10.1) Objective GENERAL: No acute distress, awake and alert. HEENT: PERRLA, EOMI, anicteric, atraumatic, normocephalic NECK: No JVD, no carotid bruit, carotid upstroke 2+ B/L PULMONARY: Decreased breath sounds both bases CARDIOVASCULAR: Irregularly irregular, tachycardic, normal S1S2, No murmurs, gallops or rubs. ABDOMEN: Soft, nontender, and nondistended, no HSM, + BS EXTREMITIES: There is 1+ edema B/L ELEONORA SILVA Jun 06, 2017 14:24
[2017-06-06 16:16] VITALS: BP 122/55
--- NOTE | 2017-06-06 17:24 | Cardiac Electrophysiology PN ---
Assessment/Plan Assessment/Plan 1. Atrial fibrillation with rapid ventricular response. The patient is protected with a cardiac pacemaker to prevent bradycardia. Continue amiodarone amiodarone 400 mg p.o. bid, Lopressor 100 mg b.i.d. and Digoxin 0.125 mg daily. 2. Status post [employer] pacemaker in 2002 and generator change in 2012. The pacemaker will be interrogated for further evaluation. 3. Troponin leak, likely demand ischemia in the patient with atrial fibrillation as well as renal failure. The patient will be transferred to [facility] per Dr. Haywood for cardiac catheterization. 4. Gastrointestinal bleed in the setting of INR of 6, and it came down to 1.1. It is also of note that the patient's echocardiogram also showed ejection fraction of 60% to 65%. DW RN Subjective Subjective Transferred to telemetry. In atrial fib rate around 100.Awaiting transfer to [facility] for cardiac cath. Objective Last 24 Hour Vital Signs Date Time Temp Pulse Resp B/P (MAP) Pulse Ox O2 Delivery O2 Flow Rate FiO2 06/06/17 16:16 97.9 87 20 122/55 97 Nasal Cannula 2.0 06/06/17 11:51 98.1 90 20 121/62 98 Nasal Cannula 2.0 06/06/17 09:46 107 104/66 06/06/17 09:46 107 06/06/17 08:48 97.7 107 20 104/66 99 Nasal Cannula 2.0 06/06/17 04:00 113 06/06/17 04:00 98.0 103 20 109/48 100 Room Air 06/06/17 00:08 97.0 128 20 121/69 94 Nasal Cannula 2.0 06/06/17 00:00 114 06/05/17 20:55 106 125/60 06/05/17 20:00 98.0 106 20 120/64 94 Nasal Cannula 2.0 06/05/17 20:00 123 06/05/17 19:30 Nasal Cannula 2.0 28 06/05/17 19:30 94 Nasal Cannula 2.0 28 Intake and Output 06/06/17 06/07/17 19:00 07:00 Intake Total 240 ml Output Total 400 ml Balance -160 ml Intake Oral 240 ml Output Urine Total 400 ml # Bowel Movements 1 Laboratory Tests Test 06/06/17 06:20 06/06/17 07:30 Stool Occult Blood Positive (NEGATIVE) White Blood Count 10.1 K/UL (4.8-10.8) Red Blood Count 2.33 M/UL (4.20-5.40) L Hemoglobin 7.5 G/DL (12.0-16.0) L Hematocrit 23.1 % (37.0-47.0) L Mean Corpuscular Volume 99 FL (80-99) Mean Corpuscular Hemoglobin 32.4 PG (27.0-31.0) H Mean Corpuscular Hemoglobin Concent 32.7 G/DL (32.0-36.0) Red Cell Distribution Width 13.5 % (11.6-14.8) Platelet Count 154 K/UL (150-450) Mean Platelet Volume 8.5 FL (6.5-10.1) Neutrophils (%) (Auto) % (45.0-75.0) Lymphocytes (%) (Auto) % (20.0-45.0) Monocytes (%) (Auto) % (1.0-10.0) Eosinophils (%) (Auto) % (0.0-3.0) Basophils (%) (Auto) % (0.0-2.0) Differential Total Cells Counted 100 Neutrophils % (Manual) 73 % (45-75) Lymphocytes % (Manual) 6 % (20-45) L Monocytes % (Manual) 11 % (1-10) H Eosinophils % (Manual) 0 % (0-3) Basophils % (Manual) 0 % (0-2) Band Neutrophils 10 % (0-8) H Platelet Estimate Adequate Platelet Morphology Normal Hypochromasia 1+ Sodium Level 144 MMOL/L (136-145) Potassium Level 4.3 MMOL/L (3.5-5.1) Chloride Level 111 MMOL/L (98-107) H Carbon Dioxide Level 22 MMOL/L (21-32) Anion Gap 11 (5-15) Blood Urea Nitrogen 40 mg/dL (7-18) H Creatinine 1.6 MG/DL (0.55-1.30) H Estimat Glomerular Filtration Rate mL/min (>60) Glucose Level 117 MG/DL (74-106) H Calcium Level 8.6 MG/DL (8.5-10.1) Objective HEAD AND NECK: No JVD. LUNGS: Decreased breath sounds. CARDIOVASCULAR: Irregularly irregular. S1 and S2. Tachycardic. ABDOMEN: Soft and nontender. EXTREMITIES: No pitting edema. ELEONORA BLAND Jun 06, 2017 17:24
[2017-06-06] MEDS ORDERED: 1/2 NS 1000ml IV ONE ×3 (19:24)
--- NOTE | 2017-06-06 20:26 | General Progress Note ---
Assessment/Plan Problem List: (1) Gastrointestinal hemorrhage ICD Codes: K92.2 - Gastrointestinal hemorrhage, unspecified SNOMED: 18435418 (2) Anemia ICD Codes: D64.9 - Anemia, unspecified SNOMED: 434405397, 380183002 (3) Supratherapeutic INR ICD Codes: R79.1 - Abnormal coagulation profile SNOMED: 486449842, 801122045 (4) Pancreatitis ICD Codes: K85.90 - Acute pancreatitis without necrosis or infection, unspecified SNOMED: 18149102 (5) GI bleed ICD Codes: K92.2 - Gastrointestinal hemorrhage, unspecified SNOMED: 59715939 (6) Leukocytosis ICD Codes: D72.829 - Elevated white blood cell count, unspecified SNOMED: 641625689, 097234833 Assessment/Plan anemia gi bleed cad transferring to [facility] in [place] for caridac olivia per request of rubber press tender dr ibarra afebrile Subjective Allergies: Coded Allergies: No Known Allergies (Unverified , 05/31/17) Subjective generalized pain Objective Last 24 Hour Vital Signs Date Time Temp Pulse Resp B/P (MAP) Pulse Ox O2 Delivery O2 Flow Rate FiO2 06/06/17 16:16 97.9 87 20 122/55 97 Nasal Cannula 2.0 06/06/17 16:00 96 06/06/17 12:00 100 06/06/17 11:51 98.1 90 20 121/62 98 Nasal Cannula 2.0 06/06/17 09:46 107 104/66 06/06/17 09:46 107 06/06/17 08:48 97.7 107 20 104/66 99 Nasal Cannula 2.0 06/06/17 08:00 103 06/06/17 04:00 113 06/06/17 04:00 98.0 103 20 109/48 100 Room Air 06/06/17 00:08 97.0 128 20 121/69 94 Nasal Cannula 2.0 06/06/17 00:00 114 06/05/17 20:55 106 125/60 Intake and Output 06/06/17 06/07/17 19:00 07:00 Intake Total 360 ml Output Total 400 ml Balance -40 ml Intake Oral 360 ml Output Urine Total 400 ml # Bowel Movements 1 Laboratory Tests 06/06/17 06:20: Stool Occult Blood Positive 06/06/17 07:30: White Blood Count 10.1, Red Blood Count 2.33L, Hemoglobin 7.5L, Hematocrit 23.1L , Mean Corpuscular Volume 99, Mean Corpuscular Hemoglobin 32.4H, Mean Corpuscular Hemoglobin Concent 32.7, Red Cell Distribution Width 13.5, Platelet Count 154, Mean Platelet Volume 8.5, Neutrophils (%) (Auto) , Lymphocytes (%) ( Auto) , Monocytes (%) (Auto) , Eosinophils (%) (Auto) , Basophils (%) (Auto) , Differential Total Cells Counted 100, Neutrophils % (Manual) 73, Lymphocytes % ( Manual) 6L, Monocytes % (Manual) 11H, Eosinophils % (Manual) 0, Basophils % ( Manual) 0, Band Neutrophils 10H, Platelet Estimate Adequate, Platelet Morphology Normal, Hypochromasia 1+, Sodium Level 144, Potassium Level 4.3, Chloride Level 111H, Carbon Dioxide Level 22, Anion Gap 11, Blood Urea Nitrogen 40H, Creatinine 1.6H, Estimat Glomerular Filtration Rate , Glucose Level 117H, Calcium Level 8.6 Height (Feet): 5 Height (Inches): 0.00 Weight (Pounds): 165 Ty Fisher MD Jun 06, 2017 20:26
--- NOTE | 2017-06-06 21:47 | General Progress Note ---
Assessment/Plan Assessment/Plan ASSESSMENT AND RECOMMENDATIONS: # Anemia 2/2 chronic disease. --> hgb goal above 8. will likely need transfusion at receiving hospital # Anemia 2/2 b12 deficiency. The patient is on b12 supplement. # Anemia secondary to gastrointestinal bleed. GI service following and pt is to receive egd/colo when stable. Continue to closely monitor. #. Macrocytosis potentially secondary to liver disease. Continue to monitor. #. Supratherapeutic INR. Vitamin K has been administered. Now normal # Possible ileus. Subjective Constitutional: Reports: no symptoms HEENT: Reports: no symptoms Cardiovascular: Reports: no symptoms Respiratory: Reports: no symptoms Gastrointestinal/Abdominal: Reports: no symptoms Genitourinary: Reports: no symptoms Neurologic/Psychiatric: Reports: no symptoms Endocrine: Reports: no symptoms Hematologic/Lymphatic: Reports: no symptoms Allergies: Coded Allergies: No Known Allergies (Unverified , 05/31/17) Subjective drop in hgb, transfer to [facility] Objective Last 24 Hour Vital Signs Date Time Temp Pulse Resp B/P (MAP) Pulse Ox O2 Delivery O2 Flow Rate FiO2 06/06/17 16:16 97.9 87 20 122/55 97 Nasal Cannula 2.0 06/06/17 16:00 96 06/06/17 12:00 100 06/06/17 11:51 98.1 90 20 121/62 98 Nasal Cannula 2.0 06/06/17 09:46 107 104/66 06/06/17 09:46 107 06/06/17 08:48 97.7 107 20 104/66 99 Nasal Cannula 2.0 06/06/17 08:00 103 06/06/17 04:00 113 06/06/17 04:00 98.0 103 20 109/48 100 Room Air 06/06/17 00:08 97.0 128 20 121/69 94 Nasal Cannula 2.0 06/06/17 00:00 114 Intake and Output 06/06/17 06/07/17 19:00 07:00 Intake Total 360 ml Output Total 400 ml Balance -40 ml Intake Oral 360 ml Output Urine Total 400 ml # Bowel Movements 1 Laboratory Tests 06/06/17 06:20: Stool Occult Blood Positive 06/06/17 07:30: White Blood Count 10.1, Red Blood Count 2.33L, Hemoglobin 7.5L, Hematocrit 23.1L , Mean Corpuscular Volume 99, Mean Corpuscular Hemoglobin 32.4H, Mean Corpuscular Hemoglobin Concent 32.7, Red Cell Distribution Width 13.5, Platelet Count 154, Mean Platelet Volume 8.5, Neutrophils (%) (Auto) , Lymphocytes (%) ( Auto) , Monocytes (%) (Auto) , Eosinophils (%) (Auto) , Basophils (%) (Auto) , Differential Total Cells Counted 100, Neutrophils % (Manual) 73, Lymphocytes % ( Manual) 6L, Monocytes % (Manual) 11H, Eosinophils % (Manual) 0, Basophils % ( Manual) 0, Band Neutrophils 10H, Platelet Estimate Adequate, Platelet Morphology Normal, Hypochromasia 1+, Sodium Level 144, Potassium Level 4.3, Chloride Level 111H, Carbon Dioxide Level 22, Anion Gap 11, Blood Urea Nitrogen 40H, Creatinine 1.6H, Estimat Glomerular Filtration Rate , Glucose Level 117H, Calcium Level 8.6 Height (Feet): 5 Height (Inches): 0.00 Weight (Pounds): 165 General Appearance: no apparent distress EENT: normal ENT inspection Neck: normal inspection Cardiovascular: no gallop/murmur Abdomen: non tender Skin: warm/dry Kenny Castle Jun 06, 2017 21:47
--- NOTE | 2017-06-08 08:35 | Discharge Summary ---
Discharge Summary Hospital Course Date of Admission May 31, 2017 at 13:02 Date of Discharge Jun 06, 2017 at 19:25 Admitting Diagnosis GI BLEED HPI Vianney Boateng is a 86 year old female who was admitted on May 31, 2017 at 13 :02 for Gastrointestinal Bleeding Hospital Course dc summary #[id number] Discharge Discharge Disposition Patient was discharged to [facility]([address] [place] [address] for cardiac cath Discharge Diagnoses: Discharge Instructions Discharge Instructions Special Instructions I have been assigned to complete a D/C Summary on this account. I was not involved in the patient management Shelby Bone NP (Vanchtein) Jun 08, 2017 08:35
--- NOTE | 2017-06-08 23:34 | Diagnostic Imaging Report ---
APPROVED REPORT CPT Code: 95278 Present Symptoms Comments: R/O DVT BILATERAL: Imaging reveals a patent deep venous system bilaterally. There is no evidence of thrombus within the femoral, popliteal or tibial segments. The greater saphenous veins are also within normal limits. Doppler indicates normal spontaneous flow within these segments.
--- NOTE | 2017-06-09 04:00 | Discharge Summary 2 SIG ---
DATE OF ADMISSION: 05/31/2017 DATE OF DISCHARGE: 06/06/2017 REASON FOR ADMISSION: 86-year-old female with a past medical history of hypertension, pacemaker, and atrial fibrillation, presented with GI bleeding for one day. The patient reported bright red blood per rectum with multiple episodes in the morning. She felt very lightheaded and dizzy, however, no actual syncopal episode was reported. The patient was on Coumadin and aspirin. Upon evaluation, found INR - 6.0, hemoglobin -9.6, hematocrit- 29.3, platelets- 130,000; BUN -61, and creatinine -2.3. Hemodynamically stable, not in pain, no rose bloody stool. Blood pressure about 85 to 100 systolic with a mean arterial pressure around 55 to 60. The patient received vitamin K , one unit of fresh frozen plasma in the emergency department as well as one unit of packed red blood cells. The patient subsequently was admitted for GI hemorrhage, supra-therapeutic INR elevated troponin, anemia, renal failure. to ICU for further management. HOSPITAL COURSE: The patient was admitted. Cardiology, Hematology, Nephrology, and GI consults were requested. The patient was noted to have elevated troponin initially 0.093, which was trending up to 0.329 and then down trending to 0.198. Cardiology closely followed. The patient was in permanent atrial fibrillation. Anticoagulation stopped due to GI bleeding. The patient with a status post permanent pacemaker implantation in 2002 and generator change in 2012. Per cardio, pacemaker need to be interrogated for further evaluation. The patient was started on amiodarone, Lopressor, and digoxin. Heart rate was controlled. According to business resiliency manager, the patient had troponin leak, likely demand ischemia in patient with atrial fibrillation and renal failure. The patient initially with coagulopathy and GI bleeding in the setting of coagulopathy. INR down to 1.1. Echocardiogram demonstrated preserved ejection fraction of 60% to 65%. Community Service Coordinator closely followed. Per brake drum lathe operator, the patient had a prerenal failure, due to GI bleeding, superimposed on renal failure. He recommended to avoid nephrotoxic. Renal ultrasound revealed small bilateral kidneys, but no evidence of hydronephrosis. Initial BUN- 61 and creatinine -2.3, down to BUN -40 and creatinine -1.6 with IV hydration. GI closely followed. The patient was placed on PPI. Hemoglobin and hematocrit were stable after transfusion. GI procedure was on hold until cardiac evaluation with cardiac catheterization will be done in [facility]. Patient will need cardiac clearance prior to GI procedures. KUB on 06/05/2017 revealed possible ileus. Bowel regimen intensified. Bowel sounds present. Repeat KUB at admitting facility. The patient complained of left ankle pain. X-ray of the left ankle revealed no evidence of acute fracture or dislocation. Criminal Legal Assistant seen the patient. The patient was diagnosed with a gout attack. Criminal Legal Assistant recommended compression, icing, and pain management with nonsteroid antiinflammatory drugs with judicious use due to the acute renal failure. Pain specialist closely followed. The patient was on Tylenol and Lidoderm patch.Pain control achieved. Initial lipase was elevated -612, possible pancreatitis.Lipase down to 273 prior to discharge. No nausea, no vomiting, tolerated diet. Reed Or Wind Instrument Repairer seen the patient. Anemia workup was consistent with anemia of chronic disease along with anemia, secondary to GI bleeding and anemia of B12 deficiency. B12 was replaced and continue monthly replacement. Monitor hemoglobin and hematocrit. Transfuse with goal to keep hemoglobin above 8. Urologist seen the patient for urinary retention. He recommended Barron catheter and close followup. Monitor renal parameters and electrolytes. The patient was stable for transfer to [facility] for cardiac catheterization and further management FINAL DIAGNOSES: 1. Elevated troponin likely due to troponin leak 2. Troponin leak, likely demand ischemia. 3. Gastrointestinal hemorrhage. 4. Supra-therapeutic INR . 5. Anemia of chronic disease. 6. Anemia secondary to gastrointestinal bleeding , requiring blood transfusion. 7. Anemia of B12 deficiency. 8. Atrial fibrillation with rapid ventricular response, resolved. 9. Status post [employer] pacemaker in 2002 and generator change in 2012. 10. Acute renal failure. 11. Gout attack. 12. Elevated lipase, possible pancreatitis. DISCHARGE INSTRUCTIONS: The patient was transferred to [facility] for cardiac catheterization. DISCHARGE MEDICATIONS: Medication list was sent to admitting facility. Ty Fisher M.D. I have been assigned to dictate discharge summary on this account and I was not involved in the patient's management. Shelby Bone N.P. (Vanchtein) DR: DOROTA JOB#: [id number] CC: ERIK
--- NOTE | 2017-06-13 12:25 | Cardiology Report ---
APPROVED REPORT EKG Measurement Heart [id number] Sinus rhythm Low voltage QRS Cannot rule out Anterior infarct, age undetermined Wandering baseline obscures interpretation. Abnormal ECG
== END 2017-06-06 19:25 | disposition short-term general hospital (02) | DRG 377 ==
LOC: EDBD 12:38 → EMR 12:59 → ICU 13:02 → EDBEDREQSVC 13:41 → EDBEDREQ 14:12 → 2E 06-05 15:45
DX: K92.2 Gastrointestinal hemorrhage, unspecified (principal); K85.90 Acute pancreatitis without necrosis or infection, unspecified; N17.9 Acute kidney failure, unspecified; I95.9 Hypotension, unspecified; I24.8 Other forms of acute ischemic heart disease; I50.9 Heart failure, unspecified; K56.7 Ileus, unspecified; D51.9 Vitamin B12 deficiency anemia, unspecified; E86.0 Dehydration; D50.0 Iron deficiency anemia secondary to blood loss (chronic); T45.515A Adverse effect of anticoagulants, initial encounter; I10 Essential (primary) hypertension; R33.9 Retention of urine, unspecified; M10.9 Gout, unspecified; Z95.0 Presence of cardiac pacemaker; E78.5 Hyperlipidemia, unspecified; D63.8 Anemia in other chronic diseases classified elsewhere; I48.0 Paroxysmal atrial fibrillation; D75.89 Other specified diseases of blood and blood-forming organs; M25.572 Pain in left ankle and joints of left foot
CPT/HCPCS: 36415; 36430; 51702; 71010; 74000; 76775; 80048; 80053; 80061; 80162; 82248; 82270; 82550; 82553; 82607; 82728; 82746; 82977; 83010; 83036; 83540; 83550; 83690; 83735; 83880; 83921; 84100; 84238; 84443; 84484; 84550; 85007; 85025; 85044; 85060; 85384; 85610; 85730; 86140; 86703; 86705; 86709; 86803; 86850; 86900; 86901; 86920; 86927; 87081; 87340; 93005; 93306; 93970; 94760; 97803; J0282; J3430